=== PATIENT | male | born 1930 | race Caucasian/White ===

== ENCOUNTER 2017-03-31 12:00 | Emergency (ER) | payer MEDICARE, OTHER ==
[2017-03-31 12:44] VITALS: BP 150/80
--- NOTE | 2017-03-31 14:27 | UC ---
Abdominal Pain Male HPI - HPI Summary HPI Summary: ONSET OF FEELING OF CONSTIPATION AND FULLNESS TO ABDOMEN LAST NIGHT AROUND 6PM. STATES HE OVER ATE AT DINNER. TRIED TO THROW UP BUT COULDN'T. TRIED TO HAVE A BM BUT COULDN'T. NO FEVER OR NAUSEA. THIS MORNING TRIED AGAIN AND DID THROW UP A LOT. SX BETTER BUT NOT COMPLETELY RESOLVED. WHILE WAITING HERE TO BE SEEN HAD A BIG BM AND NOW SX ARE RESOLVED. - History of Current Complaint Chief Complaint: UCAbdominalPain Stated Complaint: VOMITING Time Seen by Provider: 03/31/17 13:48 Hx Obtained From: Patient, Family/Bias Cutter Helper - SON Onset/Duration: Sudden Onset, Lasting Hours, Resolved Timing: Constant Severity Initially: Moderate Severity Currently: None Pain Intensity: 0 Pain Scale Used: 0-10 Numeric Location: Diffuse Radiates: No Character: Sharp Aggravating Factor(s):: Nothing Associated Signs And Symptoms: Positive: Constipation - Allergies/Home Medications Allergies/Adverse Reactions: Allergies Allergy/AdvReac Type Severity Reaction Status Date / Time Ciprofloxacin [From Cipro] Allergy rash and Verified 03/31/17 12:44 hives Home Medications: Home Medications Losartan Potassium & Hydrochlo [Hyzaar 100/12.5 mg] 1 tab PO DAILY 03/31/17 [ History Confirmed 03/31/17] NIFEdipine ER TAB* [Procardia Xl TAB*] 60 mg PO DAILY 03/31/17 [History Confirmed 03/31/17] Naproxen TAB* [Naprosyn 250 mg TAB*] 250 mg PO TID PRN 03/31/17 [History Confirmed 03/31/17] PMH/Surg Hx/FS Hx/Imm Hx Endocrine History Of: Denies: Diabetes, Thyroid Disease Cardiovascular History Of: Reports: Hypertension Denies: Cardiac Disorders Respiratory History Of: Denies: COPD, Asthma GI/ History Of: Denies: Ulcer Cancer History Of: Reports: Prostate Cancer - Surgical History Surgical History: Yes Surgery Procedure, Year, and Place: Kidney stone removal, lithotripsy x3. - Family History Known Family History: Positive: Hypertension - Social History Alcohol Use: Occasionally Substance Use Type: None Smoking Status (MU): Never Smoked Tobacco - Immunization History Most Recent Influenza Vaccination: 2013 Review of Systems Constitutional: Negative Respiratory: Negative Cardiovascular: Negative Gastrointestinal: Abdominal Pain Genitourinary: Negative All Other Systems Reviewed And Are Negative: Yes Physical Exam Triage Information Reviewed: Yes Appearance: Well-Appearing, No Pain Distress, Well-Nourished Vital Signs: Initial Vital Signs Temp 99.2 F 03/31/17 12:34 Pulse 103 03/31/17 12:34 Resp 18 03/31/17 12:34 BP 150/80 03/31/17 12:34 Pulse Ox 98 03/31/17 12:34 Vital Signs Reviewed: Yes Eyes: Positive: Conjunctiva Clear ENT: Positive: Hearing grossly normal Neck: Positive: Supple Respiratory Exam: Normal Cardiovascular: Positive: Other: - IRREGULAR Abdomen Description: Positive: Nontender, Soft. Negative: Distended, Guarding Musculoskeletal: Positive: No Edema Neurological: Positive: Alert Psychological: Positive: Normal Response To Family, Age Appropriate Behavior Skin: Negative: rashes Abd Pain Male Course/Dx - Course Course Of Treatment: SYMPTOMS RESOLVED AFTER BM HERE WHILE WAITING TO BE SEEN. - Differential Dx/Clinical Impression Provider Diagnoses: CONSTIPATION Discharge - Discharge Plan Condition: Stable Disposition: HOME Patient Education Materials: Constipation (ED) Referrals: Gaudencio Ureña MD [Primary Care Provider] - If Needed Additional Instructions: YOUR SYMPTOMS SEEM TO HAVE IMPROVED AFTER YOUR BOWEL MOVEMENT HERE. NO ACUTE INTERVENTION INDICATED AT THIS TIME. FOLLOW-UP WITH YOUR PCP IF SYMPTOMS RECUR. I WOULD SUGGEST RESTARTING YOUR DAILY COLACE.
== END 2017-03-31 14:51 | disposition home or self-care (01) ==
LOC: UCEAST 12:00
DX: K59.00 Constipation, unspecified (principal); I10 Essential (primary) hypertension; Z87.442 Personal history of urinary calculi; Z85.46 Personal history of malignant neoplasm of prostate; Z88.1 Allergy status to other antibiotic agents
CPT/HCPCS: 99201; G0463

== ENCOUNTER 2018-02-25 05:44 | Inpatient (IN) | payer MEDICARE, OTHER ==
--- NOTE | 2018-02-15 14:39 | HP ---
HISTORY AND PHYSICAL: DATE OF ADMISSION/SURGERY: 02/25/18 SURGEON: Sandra Turner MD * (DICTATED BY KHRIS GARNER) PROCEDURE: Right total knee arthroplasty. CHIEF COMPLAINT: Right knee pain. HISTORY OF PRESENT ILLNESS: Mr. 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 He has failed conservative management and elected to proceed with a right total knee arthroplasty, which is scheduled for 02/25/[address] Turner. PAST MEDICAL HISTORY: 1. Hypertension. 2. History of prostate cancer and urethral stricture. PAST SURGICAL HISTORY: Left total knee arthroplasty and lithotripsy. CURRENT MEDICATIONS: 1. Eucerin twice a day. 2. Tylenol as needed. 3. Colyte as needed. 4. Triamcinolone acetonide 0.1% as needed. 5. Losartan potassium/hydrochlorothiazide 100/25 mg daily. 6. Terazosin 2 mg q.h.s. 7. Nifedipine daily. ALLERGIES: To CIPRO. FAMILY HISTORY: Denies. SOCIAL HISTORY: This 87-year-old gentleman lives alone. He does not smoke or use drugs. Uses occasional alcohol. REVIEW OF SYSTEMS: A complete 14-point review of systems was reviewed with the patient, was all negative or noncontributory. PHYSICAL EXAMINATION GENERAL: He is well developed, well nourished, in no acute distress. VITAL SIGNS: He stands 5 feet 7 inches tall, weighs 149 pounds. His blood pressure is 142/64, heart rate is 58. HEENT: Normocephalic, atraumatic. NECK: Supple. No palpable lymph nodes. PULMONARY: Lungs are clear to auscultation bilaterally. CARDIO: Regular rate and rhythm. Strong S1, S2. ABDOMEN: Soft, nontender, nondistended. MUSCULOSKELETAL: Right lower extremity skin is intact. There is no open wounds or abrasions. He has some tenderness over the medial joint line. There is a significant varus deformity measuring approximately 15 degrees. Range of motion is 20 to 100 degrees. He has 2+ dorsalis pedis pulse, he has intact sensation. His lower extremity muscle group strengths are intact at 5/5. NEUROLOGIC: He is alert and oriented x3. Cranial nerves II through XII are intact. ASSESSMENT AND PLAN: Mr. 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 He has failed conservative management and elected to proceed with a right total knee arthroplasty which is scheduled for 02/25/[address] Turner discussed the risks and benefits of surgery at today's visit and all his questions were answered. He will follow up with Dr. Turner 2 weeks after the surgery. KHRIS GARNER [id number]/[facility] #: [id number] [id number]
[~2018-02-25 05:44] MED LIST: Buffered Lidocaine 0.9% SYRIN* 5 ML/SYR SYRINGE INTRADERM ONE; DiMENhydriNATE IV* 50 MG/ML VIAL IV PUSH PRN; Morphine INJ* 2 MG/ML 1 ML CARPUJECT IV PRN; Naloxone* 0.4 MG/ML 1 ML VIAL IV PRN; PROCHLORPERAZINE INJ 5 MG/ML 2 ML VIAL IV PRN; fentaNYL* 50 MCG/ML 2 ML VIAL (100 MCG VIAL) IV PRN
--- OUTSIDE RECORDS SUMMARY | 2018-02-25 05:54 | XMS REPORT ---
:1930 External Reference #:[id number] Author Organization [employer] Address [address] [address] Phone [phone] Care Team Providers Name Role Phone Nick Hudson MD Primary Care Physician Unavailable Payers Type Date Identification Numbers Payment Provider Subscriber Medicare Primary Policy Number: [id number] Medicare Jovanni Velazco PayID: [id number] [address] [place] [address] Medigap Part B Policy Number: [id number] A[employer] Insurance Jovanni Velazco Group Number: [id number] [address] PayID: [id number] [place] [address] Problems Date Description Provider Status Onset: 08/12/2017 Essential hypertension Opal Gee M.D.,FACP Onset: 01/27/2018 Localized, primary osteoarthritis Sandra Turner M.D. Active Family History Date Family Member(s) Problem(s) Comments General Heart Disease Father Alcoholism Drinker, had liver disease. age 72 Mother Obesity Mother Heart Disease CHF, age57 Social History Type Date Description Comments Lives With Alone Occupation Retired [employer] ETOH Use consumes 2 beers per week Smoking 08/05/2017 Patient is a former smoker used to smoke cigars, quit 2014 Daily Caffeine Consumes on average 1 cup of regular coffee per day Exercise Type/Frequency Exercises regularly water/pool swimming 5x/week Allergies, Adverse Reactions, Alerts Date Description Reaction Status Severity Comments 11/08/2014 Cipro active Medications Medication Date Status Form Strength Qnty SIG Indications Ordering Provider Vishal 08/05/ Active Cream 240gm apply twice a Annika 2017 day SRINATH Valentino Tylenol 08/05/ Active Capsules 325mg 120ca 2 tablets Annika 2016 ps every 4 hours Valentino, as needed for 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 ATTENDANT 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 Col Rite 08/05/ Active Annika 2017 Valentino, SERVICE ATTEND[employer] Triamcinolone 08/05/ Active Cream 0.1% 60gm apply small Annika Acetonide 2017 amt qd prn Valentino, SERVICE ATTENDANT [employer] Losartan / Active Tablets 100-25mg 30tab 1 by mouth Annika Potassium/[place] 0000 s every day Valentino, chlorothiazide SERVICE ATTENDANT [employer]FETER[employer] Terazosin HCL / Active Capsules 2mg 90cap Take 1 Annika 0000 s capsule Valentino, orally qhs SERVICE ATTENDANT [employer] Nefedipine / Active once daily Unknown 0000 Triamcinolone 08/05/ Hx Cream 0.1% 15uni apply thin Annika Acetonide 2017 - ts film twice Valentino, 08/05/ daily SERVICE ATTENDANT CAFETERIA 2017 Percocet 12/22/ Hx Tablets 5-325mg 90tab 1-2 tabs by Sandra 2015 - s mouth q4-6 as Johnny, 03/01/ needed pain M.D. 2014 Coumadin 12/22/ Hx Tablets 2mg 90tab 1-3 tab by Sandra 2015 - s mouth as Johnny, 02/28/ directed at M.D. 2014 5pm daily Colace 12/22/ Hx Capsules 100mg 60cap 1 tab by Sandra 2015 - s mouth twice a Johnny, 05/29/ day as needed M.D. 2013 constipation Naproxen / Hx Tablets 250mg 1 tab by Unknown 0000 - mouth twice 08/05/ daily 2016 Nifedipine ER / Hx Tablets 60mg 1 by mouth Unknown 0000 - ER 24HR every day 2016 Fexofenadine / Hx Tablets 180mg 1 by mouth Unknown HCL 0000 - every day 2017 Medications Administered in Office Medication Date Status Form Strength Qnty SIG Indications Ordering Provider Depomedrol Administered Injection Sandra 80MG 015 Domo Turner Vital Signs Date Vital Result Comment 01/27/2018 Height 66.25 inches 5'6.25" Weight 149.00 lb Heart Rate 80 /min BP Systolic 136 mmHg BP Diastolic 70 mmHg BMI (Body Mass Index) 23.9 kg/m2 08/05/2017 Height 68 inches 5'8" Weight 149.25 lb Heart Rate 77 /min BP Systolic 128 mmHg BP Diastolic 60 mmHg Body Temperature 96.6 F O2 % BldC Oximetry 98 % BMI (Body Mass Index) 22.7 kg/m2 04/30/2015 Height 68 inches 5'8" Weight 155.00 lb Heart Rate 67 /min BP Systolic 142 mmHg BP Diastolic 78 mmHg Pain Level 0 BMI (Body Mass Index) 23.6 kg/m2 03/01/2015 Height 68 inches 5'8" Weight 155.00 lb Pain Level 1 BMI (Body Mass Index) 23.6 kg/m2 01/29/2015 Height 68 inches 5'8" Weight 155.00 lb Pain Level 1 BMI (Body Mass Index) 23.6 kg/m2 01/15/2015 Height 68 inches 5'8" Weight 155.00 lb Body Temperature 973.0 F Pain Level 2 BMI (Body Mass Index) 23.6 kg/m2 12/22/2014 Height 68 inches 5'8" Weight 155.00 lb Heart Rate 73 /min BP Systolic 160 mmHg BP Diastolic 80 mmHg BMI (Body Mass Index) 23.6 kg/m2 11/13/2014 Height 68 inches 5'8" Weight 152.00 lb BP Systolic 110 mmHg BP Diastolic 76 mmHg BMI (Body Mass Index) 23.1 kg/m2 Results Test Date Test Result H/L Range Note Basic Metabolic Panel 01/18/2018 Sodium 140 mmol/L 133-145 Potassium 4.5 mmol/L 3.5-5.0 Chloride 111 mmol/L 101-111 Co2 Carbon Dioxide 25 mmol/L 22-32 Anion Gap 4 mmol/L 2-11 Glucose 95 mg/dL 70-100 Blood Urea Nitrogen 36 mg/dL High 6-24 Creatinine 1.64 mg/dL High 0.67-1.17 BUN/Creatinine Ratio 22.0 High 8-20 Calcium 9.3 mg/dL 8.6-10.3 Egfr Non- 39.8 >60 Egfr 51.2 >60 1 Basic Metabolic Panel 01/08/2015 Sodium 138 mmol/L 133-145 Potassium 4.6 mmol/L 3.5-5.0 Chloride 104 mmol/L 101-111 Co2 Carbon Dioxide 26 mmol/L 22-32 Anion Gap 8 mmol/L 2-11 Glucose 105 mg/dL High 70-100 Blood Urea Nitrogen 45 mg/dL High 6-24 Creatinine 2.17 mg/dL High 0.67-1.17 BUN/Creatinine Ratio 20.7 High 8-20 Calcium 8.5 mg/dL Low 8.6-10.3 Egfr Non- 29.0 >60 Egfr 37.4 >60 2 Inr/Protime 01/08/2015 Inr 2.29 High 0.78-1.07 3 Urinalysis Profile 12/22/2014 Urine Color Yellow 4 Urine Appearance Clear 4 Urine Specific [place] 1.017 1.010-1.030 4 Urine pH 5.0 5-9 4 Urine Urobilinogen Negative Negative 4 Urine Ketones Negative Negative 4 Urine Protein 1+(30 mg/dL) Negative 4 Urine Leukocytes Negative Negative 4 Urine Blood Negative Negative 4 * * Negative 4, 5 Urine Nitrite Negative Negative 4 Urine Bilirubin Negative Negative 4 Urine Glucose Negative Negative 4 Urine White Blood Cell Trace(0-5/hpf) Absent 4 Urine Red Blood Cell Trace(0-2/hpf) Absent 4 Urine Bacteria Absent Absent 4 CBC No Diff 12/22/2014 White Blood Count 6.3 10^3/uL 4.8-10.8 4 Red Blood Count 4.57 10^6/uL 4.0-5.4 4 Hemoglobin 14.6 g/dL 14.0-18.0 4 Hematocrit 44 % 42-52 4 Mean Corpuscular Volume 97 fL High 80-94 4 Mean Corpuscular Hemoglobin 32 pg High 27-31 4 Mean Corpuscular HGB Conc 33 g/dL 31-36 4 Red Cell Distribution Width 14 % 10.5-15 4 Platelet Count 171 10^3/uL 150-450 4 Mean Platelet Volume 10 um3 7.4-10.4 4 Basic Metabolic Panel 12/22/2014 Sodium 141 mmol/L 133-145 4 Potassium 4.2 mmol/L 3.5-5.0 4 Chloride 110 mmol/L 101-111 4 Co2 Carbon Dioxide 26 mmol/L 22-32 4 Anion Gap 5 mmol/L 2-11 4 Glucose 84 mg/dL 70-100 4 Blood Urea Nitrogen 37 mg/dL High 6-24 4 Creatinine 1.49 mg/dL High 0.67-1.17 4 BUN/Creatinine Ratio 24.8 High 8-20 4 Calcium 9.3 mg/dL 8.6-10.3 4 Egfr Non- 44.8 >60 4 Egfr 57.6 >60 4, 6 Type & Screen 12/22/2014 Patient Blood Type A Positive 4 Antibody Screen NEGATIVE 4 CBC Auto Diff 12/12/2014 White Blood Count 4.8 10^3/uL 4.8-10.8 Red Blood Count 4.35 10^6/uL 4.0-5.4 Hemoglobin 14.0 g/dL 14.0-18.0 Hematocrit 43 % 42-52 Mean Corpuscular Volume 98 fL High 80-94 Mean Corpuscular Hemoglobin 32 pg High 27-31 Mean Corpuscular HGB Conc 33 g/dL 31-36 Red Cell Distribution Width 15 % 10.5-15 Platelet Count 156 10^3/uL 150-450 Mean Platelet Volume 10 um3 7.4-10.4 Abs Neutrophils 2.9 10^3/uL 1.5-7.7 Abs Lymphocytes 1.2 10^3/uL 1.0-4.8 Abs Monocytes 0.4 10^3/uL 0-0.8 Abs Eosinophils 0.1 10^3/uL 0-0.6 Abs Basophils 0 10^3/uL 0-0.2 Abs Nucleated RBC 0 10^3/uL Granulocyte % 61.9 % 38-83 Lymphocyte % 26.2 % 25-47 Monocyte % 8.6 % 1-9 Eosinophil % 2.4 % 0-6 Basophil % 0.9 % 0-2 Nucleated Red Blood Cells % 0.1 Comp Metabolic Panel 12/12/2014 Sodium 141 mmol/L 133-145 Potassium 4.1 mmol/L 3.5-5.0 Chloride 108 mmol/L 101-111 Co2 Carbon Dioxide 29 mmol/L 22-32 Anion Gap 4 mmol/L 2-11 Glucose 93 mg/dL 70-100 Blood Urea Nitrogen 30 mg/dL High 6-24 Creatinine 1.57 mg/dL High 0.67-1.17 BUN/Creatinine Ratio 19.1 8-20 Calcium 8.9 mg/dL 8.6-10.3 Total Protein 6.3 g/dL Low 6.4-8.9 Albumin 4.0 g/dL 3.2-5.2 Globulin 2.3 g/dL 2-4 Albumin/Globulin Ratio 1.7 1-3 Total Bilirubin 0.60 mg/dL 0.2-1.0 Alkaline Phosphatase 48 U/L 34-104 Alt 11 U/L 7-52 Ast 18 U/L 13-39 Egfr Non- 42.2 >60 Egfr 54.3 >60 7 1 Because ethnic data is not always readily available, this report includes an eGFR for both -Americans and non- Americans. The National Kidney Disease Education Program (NKDEP) does not endorse the use of the MDRD equation for patients that are not between the ages of 18 and 70, are , have extremes of body size, muscle mass, or nutritional status, or are non- or non-. According to the National Kidney Foundation, irrespective of diagnosis, the stage of the disease is based on the level of kidney function: Stage Description GFR(mL/min/1.73 m(2)) 1 Kidney damage with normal or decreased GFR 90 2 Kidney damage with mild decrease in GFR 60-89 3 Moderate decrease in GFR 30-59 4 Severe decrease in GFR 15-29 5 Kidney failure <15 (or dialysis) 2 Because ethnic data is not always readily available, this report includes an eGFR for both -Americans and non- Americans. The National Kidney Disease Education Program (NKDEP) does not endorse the use of the MDRD equation for patients that are not between the ages of 18 and 70, are , have extremes of body size, muscle mass, or nutritional status, or are non- or non-. According to the National Kidney Foundation, irrespective of diagnosis, the stage of the disease is based on the level of kidney function: Stage Description GFR(mL/min/1.73 m(2)) 1 Kidney damage with normal or decreased GFR 90 2 Kidney damage with mild decrease in GFR 60-89 3 Moderate decrease in GFR 30-59 4 Severe decrease in GFR 15-29 5 Kidney failure <15 (or dialysis) 3 Please note: Effective December 27, 2014, the reference value for this test has changed due to the validation and activation of a new reagent lot number. 4 AA SURGERY 01/02/15 5 *Ascorbic acid is present which may interfere with detection of blood. 6 Because ethnic data is not always readily available, this report includes an eGFR for both -Americans and non- Americans. The National Kidney Disease Education Program (NKDEP) does not endorse the use of the MDRD equation for patients that are not between the ages of 18 and 70, are , have extremes of body size, muscle mass, or nutritional status, or are non- or non-. According to the National Kidney Foundation, irrespective of diagnosis, the stage of the disease is based on the level of kidney function: Stage Description GFR(mL/min/1.73 m(2)) 1 Kidney damage with normal or decreased GFR 90 2 Kidney damage with mild decrease in GFR 60-89 3 Moderate decrease in GFR 30-59 4 Severe decrease in GFR 15-29 5 Kidney failure <15 (or dialysis) 7 Because ethnic data is not always readily available, this report includes an eGFR for both -Americans and non- Americans. The National Kidney Disease Education Program (NKDEP) does not endorse the use of the MDRD equation for patients that are not between the ages of 18 and 70, are , have extremes of body size, muscle mass, or nutritional status, or are non- or non-. According to the National Kidney Foundation, irrespective of diagnosis, the stage of the disease is based on the level of kidney function: Stage Description GFR(mL/min/1.73 m(2)) 1 Kidney damage with normal or decreased GFR 90 2 Kidney damage with mild decrease in GFR 60-89 3 Moderate decrease in GFR 30-59 4 Severe decrease in GFR 15-29 5 Kidney failure <15 (or dialysis) Procedures Date CPT Code Description Status 04/30/2015 29942 Inject/Drain Joint/Bursa Major Completed 01/02/2015 51929 TKR Total Knee Replacement Completed 01/02/2015 07322 TKR Total Knee Replacement Completed 11/13/2014 07196 Xray Knee 3 Views Completed 08/30/2012 Colonoscopy Completed 12/28/2006 54667 EKG, Interpretation Only Completed 05/14/2005 Colonoscopy Completed Encounters Type Date Location Provider CPT E/M Dx Office Visit 08/05/2017 11:30a [facility] [place] [address] [address] L20.84 Office Visit 01/05/2015 10:49a [facility], Maye Negron, N.P. [address] 584.9 Hospitalists V43.65 401.9 Office Visit 01/04/2015 10:48a [facility], [place] [address] 584.9 Hospitalists V43.65 401.9 Office Visit 11/13/2014 11:00a [facility] Turner M.D. 73156 715.16 [facility] Plan of Care Future Appointment(s):03/08/2018 1:00 pm - Sandra Turner M.D. at [facility]02/15/2018 11:30 am - Sandra Turner M.D. at [facility]01/28/2018 2:00 pm - Annika Valentino NP at [facility] - [address]/17/2018 11:00 am - Annika Valentino NP at [facility] - [address]/27/2018 - Sandra Turner M.D.M25.561 Pain in right kneeNew Xrays:Knee 3 Views RTFollow up:Follow up: 7-10 days before [id number] Effusion, right kneeM17.11 Unilateral primary osteoarthritis, right kneeM21.161 Varus deformity, not elsewhere classified, right knee
--- OUTSIDE RECORDS SUMMARY | 2018-02-25 05:54 | XMS REPORT ---
:1930 External Reference #:[id number] Author Organization [employer] Address [address] [address] Phone [phone] Care Team Providers Name Role Phone Nick Hudson MD Primary Care Physician Unavailable Payers Type Date Identification Numbers Payment Provider Subscriber Medicare Primary Policy Number: [id number] Medicare Jovanni Velazco PayID: [id number] [address] [place] [address] Medigap Part B Policy Number: [id number] [employer] Insurance Jovanni Velazco Group Number: [id number] [address] PayID: [id number] [place] [address] Problems Date Description Provider Status Onset: 08/12/2017 Essential hypertension Nick Hudson, Active Harley.Umm,FACP Onset: 01/27/2018 Localized, primary osteoarthritis Sandra Turner M.D. Active Onset: 02/04/2018 [place]itz type I incomplete Nick Hudson, Active atrioventricular block M.Umm,FACP Family History Date Family Member(s) Problem(s) Comments General Heart Disease Father Alcoholism Drinker, had liver disease. age 72 Mother Obesity Mother Heart Disease CHF, age57 Social History Type Date Description Comments Lives With Alone Occupation Retired [employer] ETOH Use consumes 2 beers per week Smoking 02/04/2018 Patient is a former smoker used to smoke cigars, quit 2000 Daily Caffeine Consumes on average 1 cup of regular coffee per day Exercise Type/Frequency Exercises regularly water/pool swimming 5x/week Allergies, Adverse Reactions, Alerts Date Description Reaction Status Severity Comments 11/08/2014 Cipro active Medications Medication Date Status Form Strength Qnty SIG Indications Ordering Provider Eucerin 08/05/ Active Cream 240gm apply twice a Annika 2016 day Valentino, [employer] Tylenol 08/05/ Active Capsules 325mg 120ca 2 tablets Annika 2016 ps every 4 hours Valentino, 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 Col Rite 08/05/ Active Annika 2017 Valentino, [employer]BLER Triamcinolone 08/05/ Active Cream 0.1% 60gm apply small Annika Acetonide 2017 amt qd prn Valentino, [employer]SEMBLER Losartan / Active Tablets 100-25mg 30tab 1 by mouth Annika Potassium/[place] 0000 s every day Valentino, chlorothiazide [employer]OUNT[employer] ROLLER [employer]SEMBLER Terazosin HCL / Active Capsules 2mg 90cap Take 1 Annika 0000 s capsule Valentino, orally qhs [employer]OUNTAIN ROLLER ASSEMBLER Nefedipine / Active once daily Unknown 0000 Triamcinolone 08/05/ Hx Cream 0.1% 15uni apply thin Annika Acetonide 2017 - ts film twice Valentino, 08/05/ daily [employer]OUNTAIN [employer]ER [employer]SEMBLER 2017 Percocet 12/22/ Hx Tablets 5-325mg 90tab [...] Turner Vital Signs Date Vital Result Comment 02/04/2018 Weight 148.00 lb Heart Rate 75 /min BP Systolic 123 mmHg BP Diastolic 65 mmHg Body Temperature 97.3 F O2 % BldC Oximetry 97 % 01/27/2018 Height 66.25 inches 5'6.25" Weight 149.00 [...] 4 Urine Appearance Clear 4 Urine Specific [place] 1.017 1.010-1.030 4 Urine pH 5.0 5-9 [...] Procedures Date CPT Code Description Status 04/30/2015 34989 Inject/Drain Joint/Bursa Major Completed 01/02/2015 89322 TKR Total Knee Replacement Completed 01/02/2015 86656 TKR Total Knee Replacement Completed 11/13/2014 96310 Xray Knee 3 Views Completed 08/30/2012 Colonoscopy Completed 12/28/2006 52490 EKG, Interpretation Only Completed 05/14/2005 Colonoscopy Completed Encounters Type Date Location Provider CPT E/M Dx Office Visit 08/05/2017 11:30a [facility] [place] [address] [address] L20.84 Office Visit 01/05/2015 10:49a [facility]pc Maye Negron, N.P. 19[address] 584.9 Hospitalists V43.65 401.9 Office Visit 01/04/2015 10:48a [facility], [place] [address] 584.9 Hospitalists V43.65 401.9 Office Visit 11/13/2014 11:00a [facility] M.D. 11118 715.16 [facility] Plan of Care Future Appointment(s):08/19/2018 1:40 pm - Annika Valentino NP at [facility] - [address]/25/2018 9:30 am - KHRIS Luu at [facility]02/25/2018 9:30 am - Galo Mayes PA-C at [facility]02/25/2018 9:30 am - KHRIS Peters at [facility]02/25/2018 9:30 am - Sandra Turner M.D. at [facility]03/08/2018 1:00 pm - Sandra Turner M.D. at [facility]02/15/2018 11:30 am - Sandra Turner M.D. at [facility]02/04/2018 - Annika Valentino NPZ01.818 Encounter for other preprocedural examinationNew Orders:EKGComments:Drink plenty of water and liquids to keep well hydratedI am ordering some routine preoperative lab work. The office will contact you with your results. You may take all of your usual medications the morning of your surgery, unless your surgeon tells you otherwise.M25.561 Pain in right kneeM17.11 Unilateral primary osteoarthritis, right knee
[2018-02-25] MEDS ORDERED: ceFAZolin 2 GM PREMIX (*) 2 GM/50 ML BAG IVPB ONE (05:56)
[2018-02-25] MEDS ORDERED: Famotidine IV* 10 MG/ML 2 ML (20 mg) IV ONE (06:00)
[2018-02-25] MEDS ORDERED: Dexamethasone IV* 4 MG/ML 1 ML (4 MG) IV SLOW PU ONE (06:00)
[2018-02-25] MEDS ORDERED: Gabapentin CAP(*) 100 MG ONE (06:24)
[2018-02-25] MEDS ORDERED: Dexamethasone IV* 4 MG/ML 1 ML (4 MG) ONE (06:24)
[2018-02-25] MEDS ORDERED: Famotidine IV* 10 MG/ML 2 ML (20 mg) ONE (06:24)
[2018-02-25] MEDS ORDERED: Gabapentin CAP(*) 100 MG PO ONE (06:30)
[2018-02-25] MEDS ORDERED: fentaNYL* 50 MCG/ML 2 ML VIAL (100 MCG VIAL) ONE (07:09)
[2018-02-25] MEDS ORDERED: Midazolam* 1 MG/ML 5 ML VIAL (5 MG) ONE (07:09)
[2018-02-25] MEDS ORDERED: Magnesium Hydroxide LIQ* 30 ML UDC PO PRN (08:54)
[2018-02-25] MEDS ORDERED: Ondansetron TAB* 4 MG PO PRN (08:54)
[2018-02-25] MEDS ORDERED: Morphine INJ* 2 MG/ML 1 ML CARPUJECT IV PRN (08:54)
[2018-02-25] MEDS ORDERED: Cyclobenzaprine TAB* 10 MG PO PRN (08:54)
[2018-02-25] MEDS ORDERED: Ondansetron INJ* 2 MG/ML VIAL IV PRN (08:54)
[2018-02-25] MEDS ORDERED: diPHENhydraMINE IV* 50 MG/ML 1 ml VIAL (BENADRYL) IV PRN (08:54)
[2018-02-25] MEDS ORDERED: Polyethylene Glycol 3350* 17 GM PACKET PO PRN (08:54)
[2018-02-25] MEDS ORDERED: Acetaminophen TAB* 325 MG PO PRN (08:54)
[2018-02-25] MEDS ORDERED: oxyCODONE TAB* 5 MG TAB PO PRN (08:54)
[2018-02-25] MEDS ORDERED: Bisacodyl SUPP* 10 MG SUPP PR PRN (08:54)
[2018-02-25] MEDS ORDERED: NIFEdipine ER TAB* 60 MG PO SCH (09:00)
[2018-02-25] MEDS ORDERED: Losartan TAB* 25 MG PO SCH (09:00)
[2018-02-25] MEDS ORDERED: Hydrochlorothiazide TAB* 25 MG PO SCH (09:00)
[2018-02-25] MEDS ORDERED: EPHEDrine (Pressors)* 50 MG/ML VIAL ONE (10:02)
[2018-02-25] MEDS ORDERED: Glycopyrrolate IV* 0.2 MG/ML 1 ML VIAL ONE (10:02)
[2018-02-25] MEDS ORDERED: Ondansetron INJ* 2 MG/ML VIAL ONE (10:03)
[2018-02-25] MEDS ORDERED: Bupivacaine 0.25% SDV* 30 ML ONE (10:03)
[2018-02-25] MEDS ORDERED: Lidocaine 2% PF * 5 ML VIAL ONE (10:03)
[2018-02-25] MEDS ORDERED: Phenylephrine INJ* 10 MG/ML 1 ML VIAL (10 MG) ONE (10:03)
[2018-02-25] MEDS ORDERED: Bupivacaine 0.5% SDV PF* 30ML VIAL ONE (10:03)
[2018-02-25] MEDS ORDERED: Propofol* 500 MG/50 ML BTL ONE (10:03)
--- NOTE | 2018-02-25 11:32 | RAD ---
INDICATION: Right knee arthroplasty COMPARISON: January 19, 2018 TECHNIQUE: 2 views were obtained. FINDINGS: There is right knee arthroplasty. Both femoral and tibial components appear well seated. There is a cooling jacket in place. IMPRESSION: POSTOPERATIVE RIGHT KNEE ARTHROPLASTY.
[2018-02-25] MEDS: Docusate CAP* 100 MG PO SCH ×2 (13:06→19:35)
[2018-02-25] MEDS: Magnesium Hydroxide LIQ* 30 ML UDC PO SCH ×2 (13:07→19:35)
[2018-02-25] MEDS: oxyCODONE/Acetamin 5/325 MG* TAB PO PRN ×3 (14:22→19:34)
[2018-02-25] MEDS ORDERED: Losartan TAB* 25 MG PO ONE (14:50)
[2018-02-25] MEDS: ceFAZolin 1 GM in Dextrose (*) 1 GM/50 ML BAG IVPB SCH (16:15)
--- NOTE | 2018-02-25 16:32 | CONS ---
CC: Annika Valentino NP * CONSULTATION/PROCEDURE NOTE: DATE OF CONSULT: 02/25/18 PROCEDURE: Urethral dilation and complex placement of Duggan catheter. HISTORY OF PRESENT ILLNESS: Mr. Velazco is an 87-year-old white male who is admitted today for total right knee joint replacement by Dr. Sandra Turner. Request was made for Duggan catheter placement. I have been following Mr. Velazco for many years because of history of prostate carcinoma that was treated successfully with radiation therapy. He has had no evidence of recurrent disease and his PSA has remained very low. The patient developed extensive urethral strictures, which had caused him recurrent episodes of urinary retention. He had required cystoscopy and internal urethrotomies and urethral dilations in the past. The procedures were very difficult due to extensive tight urethral strictures. For the last several years, he has been managed by self-dilation using a stiff 12- Kyrgyz straight catheter. He has been able to void adequately and has had no recurrent retention. There is no history of any recent urinary tract infection or gross hematuria. DESCRIPTION OF PROCEDURE: The patient is being seen in the holding area preoperatively for urethral catheter placement. The patient was prepped and draped for urethral catheterization. Attempt at placement of 14 silicone Duggan catheter was not successful because of resistance at the level of the bulbar urethra. Attempt at placement of a 12-Duggan catheter were also unsuccessful. The urethra was then dilated with a 12-Kyrgyz stiff coude tipped straight catheter. Following that, a 12-Kyrgyz Duggan catheter was successfully placed draining clear urine. PLAN: The plan is to keep the catheter in place until the patient is ambulatory and after he is discharged home. He will need to go back performing the self- dilations daily as before. [id number]/[facility] #: [id number] [facility]
[2018-02-25] MEDS ORDERED: Warfarin TAB(*) 6 MG PO ONE (17:00)
--- NOTE | 2018-02-25 18:34 | PN ---
Progress Note - Progress Note Date of Service: 02/25/18 Note: Patient seen at bedside after arriving from PACU. He is comfortable and denies pain. I have been asked by nursing to evaluate hemovac due to blood soaked dressing. Hemovac tubing was intact though drainage holes in tubing visible. Drain was pulled with tip intact and without complication, tolerated well by patient. Bloody dressings changed.
[2018-02-25] MEDS: Terazosin CAP* 1 MG PO SCH (19:36)
--- NOTE | 2018-02-25 20:57 | CONS ---
HOSPITAL MEDICINE CONSULTATION REPORT: DATE OF CONSULT: 02/25/18 ATTENDING PHYSICIAN: Dr. Sandra Turner. CONSULTING PHYSICIAN: Dr. Jerica Trinh (dictation provided by Maye Negron NP) . REASON FOR CONSULTATION: Medical comanagement. The patient admitted for right total knee arthroplasty. HISTORY OF PRESENT ILLNESS: Mr. Velazco is an 87-year-old male with a past medical history of hypertension with prostate cancer and urethral stricture as well, who presented to the hospital today for planned right total knee arthroplasty. Please see dictated H and P from Sandra Turner MD for complete details. In brief, the patient had had ongoing issue with difficulty ambulating secondary to right knee osteoarthritis and opted for total knee arthroplasty with Dr. Turner today. The patient states that other than this he has been in his normal state of health. He has high blood pressure and nifedipine and losartan/hctz for that. He has a history of prostate cancer with urethral strictures for which he self catheterizes at home. The patient required placement of catheter by Dr. Peterson today due to the strictures prior to surgery. PAST MEDICAL HISTORY: 1. Hypertension. 2. Prostate cancer with urethral stricture. 3. Chronic kidney disease stage 3. PAST SURGICAL HISTORY: 1. Left total knee arthroplasty. 2. Lithotripsy. MEDICATIONS: Outpatient are: 1. Eucerin twice a day. 2. Tylenol as needed. 3. Colyte as needed. 4. Triamcinolone cream as needed. 5. Losartan/hydrochlorothiazide 100/12.5 one tab p.o. q.a.m. 6. Terazosin 2 mg p.o. q.h.s. 7. Nifedipine 60 mg p.o. q.a.m. ALLERGIES: CIPROFLOXACIN. FAMILY HISTORY: Reviewed and noncontributory today. SOCIAL HISTORY: The patient lives alone. He does not have any history of alcohol, drug use or smoking. He drinks alcohol very occasionally. REVIEW OF SYSTEMS: A 14-point review of systems was completed with Mr. Velazco and all those not mentioned above were negative. PHYSICAL EXAMINATION: Vital Signs: Temperature 97.5, pulse rate 57, respiratory rate 18, O2 saturation 100% on room air, blood pressure 95/73. General: Mr. Velazco is sitting in the bed, eating lunch. He is in no acute distress. Neuro: He is alert, he is oriented x3. He moves all extremities equally. There is no facial asymmetry or focal weakness. Extraocular movements are intact. Heart: S1, S2. No murmur, rub, or gallop and regular. Lungs: Clear to auscultation bilaterally with no accessory muscle use and good aeration. The abdomen is soft, nontender with bowel sounds positive x4. Extremities: No cyanosis or edema. Skin: Intact. DIAGNOSTIC STUDIES/LAB DATA: WBC 4.5, hemoglobin 12.7, hematocrit 39, platelet count 152. Sodium 140, potassium 4.4, chloride 113, serum bicarbonate 21, BUN 37, creatinine 1.80, glucose 101. ASSESSMENT AND PLAN: Mr. Velazco is an 87-year-old male with a past medical history of hypertension and chronic kidney disease stage 3, who presents to hospital today for planned right total knee arthroplasty. Our plans are as follows: 1. Postop day #0, status post right total knee arthroplasty: Management will be per Orthopedic Services. The patient will have PT and OT. He will have hemoglobin monitored daily. He will have pain medication with bowel regimen. 2. Hypertension. The patient's blood pressure is running a little low after surgery at 95 systolically. Plan to hold losartan/hydrochlorothiazide and to continue nifedipine with hold parameters. We will reevaluate this tomorrow and resume when appriopriate. 3. Chronic kidney disease stage 3. Plan to hold nephrotoxins of losartan and hydrochlorothiazide while the patient's blood pressure is relatively low. Continue IV fluids. Recheck in the a.m. Monitor closely during the hospitalization. 4. History of prostate cancer with urethral stricture. Per report, there is difficulty with placing the Duggan prior to surgery, requiring Dr. Peterson's assistance. I have spoken with Dr. Peterson on the phone. He states that the patient should continue the Duggan until Thursday. If the patient is discharged over the weekend, he should go home with the Duggan and should be taught how to remove the Duggan on Thursday. When it is removed, he should resume home catheterization per routine and if he has any issue, he will be instructed to call Dr. Peterson's office directly. 5. DVT prophylaxis with Lovenox and Warfarin per Ortho. 6. Code status is full code. TIME SPENT: Approximately 60 minutes were spent on the consultation of this patient, more than half the time spent with the patient at the bedside reviewing the events leading up to this hospitalization, performing the physical examination, and reviewing my plan of care. MAYE NEGRON NP [id number]/[facility] #: [id number] M[facility]
[2018-02-26] MEDS: oxyCODONE/Acetamin 5/325 MG* TAB PO PRN ×3 (00:29→11:50)
[2018-02-26] MEDS: ceFAZolin 1 GM in Dextrose (*) 1 GM/50 ML BAG IVPB SCH ×2 (00:30→08:11)
[2018-02-26 06:26] LABS: Hematocrit 28 % (42-52); Hemoglobin 9.6 g/dl (14.0-18.0); Mean Platelet Volume 8.7 um3 (7.4-10.4); Platelet Count 126 10^3/ul (150-450)
[2018-02-26 06:32] LABS: INR 1.14 (0.77-1.02)
[2018-02-26 06:52] LABS: EGFR Non-African American 40.7 (>60)
[2018-02-26] MEDS: NIFEdipine ER TAB* 60 MG PO SCH (08:11)
[2018-02-26] MEDS: Magnesium Hydroxide LIQ* 30 ML UDC PO SCH ×2 (08:11→20:12)
[2018-02-26] MEDS: Docusate CAP* 100 MG PO SCH ×2 (08:12→20:12)
--- NOTE | 2018-02-26 08:47 | PN ---
Progress Note - Progress Note Date of Service: 02/26/18 SOAP: Subjective: 87 y/o male s/p R TKA by DR. Turner 02/25. Patient feeling well, pain well controlled, no complaints, questions. Spoke with Dr. Aviles this AM re: catheter VSS, afebrile overnight. Objective: General- Well appearing, NAD, AO, sitting in chair comfortably. MSK- RLE- DF/PF = b/l, PT 2+, negative homans sign no induration, dressing intact, drain removed. SITLT b/l. Vital Signs Temp 98.5 F 02/26/18 07:44 Pulse 72 02/26/18 07:44 Resp 20 02/26/18 08:12 BP 145/55 02/26/18 07:44 Pulse Ox 98 02/26/18 07:44 Intake & Output 02/25/18 02/26/18 02/26/18 18:59 06:59 18:59 Intake Total 2095 2360 55 Output Total 625 700 Balance 1470 1660 55 Intake: IV Fluids 1700 1000 LR 1700 1000 IVPB 60 55 ABX - CEFAZOLIN 60 55 Oral 395 1300 Output: Urine 0 Duggan 425 700 Estimated Blood Loss 200 Other: # Bowel Movements 0 0 Assessment: Stable 87 y/o male s/p R TKA by DR. Turner 02/25. Plan: - DVT prophylaxis- lovenox, coumadin 4mg tonight - Continue PT/ OT - Follow up with Dr. Turner within 10-14 days - H&H - Stable - post-op IV ABX - running - Duggan- Placed by DR. Aviles, NOT to be removed until Weds at home and immediate self-dilitations afterwards. Patient to continue daily self- dilitation. Creatinine stable 1.6 Acetaminophen (Tylenol Tab*) 650 mg PO Q4H PRN PRN Reason: PAIN OR TEMPERATURE Bisacodyl (Dulcolax Supp*) 10 mg LA DAILY PRN PRN Reason: constipation Cyclobenzaprine HCl (Flexeril Tab*) 10 mg PO TID PRN PRN Reason: SPASMS Diphenhydramine HCl (Benadryl Iv*) 12.5 mg IV Q6H PRN PRN Reason: PRURITIS Docusate Sodium (Colace Cap*) 100 mg PO BID [facility] Last Admin: 02/26/18 08:12 Dose: 100 mg Enoxaparin Sodium (Lovenox(*)) 30 mg SUBCUT Q24H [facility] Lactated Ringer's (Lactated Ringers 1000 Ml Bag*) 1,000 mls @ 100 mls/hr IV PER RATE [facility] Last Admin: 02/25/18 22:52 Dose: 100 mls/hr Lactulose (Lactulose*) 30 ml PO Q6H PRN PRN Reason: constipation Losartan Potassium (Cozaar Tab*) 100 mg PO DAILY [facility] Last Admin: 02/26/18 08:11 Dose: 100 mg Magnesium Hydroxide (Milk Of Magnesia Liq*) 30 ml PO BID [facility] Last Admin: 02/26/18 08:11 Dose: 30 ml Magnesium Hydroxide (Milk Of Magnesia Liq*) 30 ml PO Q6H PRN PRN Reason: constipation Morphine Sulfate (Morphine Inj (Syringe)*) 2 mg IV Q2H PRN PRN Reason: PAIN Nifedipine (Procardia Xl Tab*) 60 mg PO QAM [facility] Last Admin: 02/26/18 08:11 Dose: 60 mg Ondansetron HCl (Zofran Inj*) 4 mg IV Q6H PRN PRN Reason: nausea Ondansetron HCl (Zofran Tab*) 4 mg PO Q6H PRN PRN Reason: NAUSEA Oxycodone HCl (Roxycodone Tab*) 10 mg PO Q4H PRN PRN Reason: SEVERE PAIN Oxycodone/Acetaminophen (Percocet 5/325 Tab*) 2 tab PO Q4H PRN PRN Reason: PAIN Last Admin: 02/26/18 08:12 Dose: 2 tab Oxycodone/Acetaminophen (Percocet 5/325 Tab*) 1 tab PO Q4H PRN PRN Reason: PAIN Last Admin: 02/26/18 00:29 Dose: 1 tab Pharmacy Profile Note (Coumadin Daily Reminder*) 1 note FOLLOW UP 1700 [facility] Polyethylene Glycol/Electrolytes (Miralax*) 17 gm PO DAILY PRN PRN Reason: Constipation Terazosin HCl (Hytrin Cap*) 2 mg PO BEDTIME [facility] Last Admin: 02/25/18 19:36 Dose: 2 mg Warfarin Sodium (Coumadin Tab(*)) 4 mg PO ONCE@1700 ONE PRN Reason: Protocol Stop: 02/26/18 17:01
[2018-02-26] MEDS ORDERED: Losartan TAB* 25 MG PO SCH ×2 (09:00→14:59)
[2018-02-26] MEDS: Enoxaparin(*) 30 MG/0.3 ML SYR SUBCUT SCH (11:50)
--- NOTE | 2018-02-26 14:28 | OP ---
OPERATIVE NOTE: DATE OF OPERATION: 02/25/18 DATE OF : [birth year] SURGEON: Sandra Turner MD. ROLLING MILL OPERATOR HELPER: KHRIS Barrow. Mr. Mayes did help throughout the procedure with preparation of the leg, wound retraction, and manip ulation of the knee. ANESTHESIOLOGIST: Dr. Zuluaga. ANESTHESIA: Spinal. PRE-OP DIAGNOSIS: Severe endstage degenerative osteoarthritis of the right knee joint. POST-OP DIAGNOSIS: Severe endstage degenerative osteoarthritis of the right knee joint. OPERATIVE PROCEDURE: Right total knee arthroplasty. COMPLICATIONS: None. ESTIMATED BLOOD LOSS: 200 cc. TOURNIQUET TIME: 48 minutes. SPECIMEN: Bone and cartilage from the right knee joint, sent to Pathology. HARDWARE USED: [employer] cemented total knee arthroplasty hardware. Two packages of Simplex bone cement were used. For the femur, a size 5 right posterior stabilized Legion femoral component. For the tibia, a size 4 right tibial baseplate, Phylicia II. For the insert size 3-4 a 9-mm Phylicia II posterior stabilized articular insert with a 32 mm 3-peg all poly patella. BRIEF HISTORY/INDICATIONS: Mr. Velazco is an 87-year-old gentleman with years of increasingly severe r ight knee pain. The patient failed conservative treatment with antiinflammatories, pain medications, intraarticular injections, and physical therapy. Radiographs showed bone on bone arthritis. Due to continued pain and decreased quality of life, patient elected to undergo a right total knee arthropl asty. Informed consent was obtained from the patient. He understood the risks of surgery included, but were not limited to bleeding, infection, damage to nearby structures, continued pain, need for fu rther surgery, intraoperative fracture, nerve palsy, hardware failure or loosening, knee stiffness, l oss of motion, stroke, heart attack, blood clot, and . He wished to proceed. INTRAOPERATIVE FINDINGS: Intraoperatively, the patient was noted to have severe endstage arthritis t hat is tricompartmental, full-thickness loss of cartilage. DESCRIPTION OF PROCEDURE: Mr. Velazco was identified in the preanesthesia unit. His right lower extre mity was marked as the correct operative side. Informed consent was signed and placed in the chart. The patient was taken to the operating room and placed under spinal anesthesia. At this point, Dr. Cameron Peterson did place a Duggan catheter using a cystogram. You can see his opera tive note for Duggan catheter placement. The tourniquet was placed on the right thigh. The right low er extremity was prepped and draped in the usual sterile fashion. Preop time-out was made to correct ly identify the patient's side and site. Appropriate perioperative antibiotics were given within 1 h our of incision. Tourniquet was inflated until tourniquet time for this procedure was 48 minutes. The midline incision of 12-cm was made with a 10-blade, carried down to the extensor mechanism. A new 10-blade was used to make a standard medial parapatellar arthrotomy. Patella was subluxed laterally. Electrocautery w as used to subperiosteally elevate soft tissue off the superomedial tibia to the mid sagittal plane. The knee was flexed up. The anterior horn of the lateral meniscus and ACL were sharply released. A drill was used to enter the distal femur. Intramedullary distal femoral cutting guide was pinned on the distal femur. Oscillating saw was used to the make distal femoral cut. Next the external rotat ion guide was pinned on the distal femur and the distal femur was sized to a size 5. Size 5 multi- c utting jig was pinned on the distal femur. Oscillating saw was used to make the appropriate 4 chamfe r cuts. PCL was completely released. The tibia was subluxed anteriorly. Extramedullary proximal tibial cutt ing guide was pinned on the proximal tibia. Oscillating saw was used to make the proximal tibial cut perpendicular to the mechanical axis of the tibia. The bone was carefully removed. The knee was br ought out into full extension. A spacer block had a good fit with some tightness along the medial li gaments. Electrocautery was used to release some of these ligaments along the medial plateau. Media l and lateral ligamentous balancing was much improved. Flexion and extension gaps were well balanced. Knee was flexed up. Lamina network design architect was placed both medially and laterally. Any remaining meniscus was carefully removed using electrocautery. Curved osteotome was used to remove any posterior osteop hytes. Tibial tray and drop kendrick were placed to once again confirm a satisfactory tibial cut. This was confi rmed. A size 5 right femoral trial was then impacted onto the distal femur and had excellent fit. T he box for the posterior stabilized implant was prepared using a reamer and box cut osteotome. A siz e 4 tibial tray trial with a 9-mm insert trial was placed and the knee was taken through a range of m otion. The knee had full extension to 130 degrees of flexion with satisfactory patellofemoral trackin g. The patella was everted. 9 mm of patellar bone and cartilage were carefully removed using an osc illating saw. The patella was sized to a size 32. The 3 peg holes were drilled through the size 32g uide. The trial 32 patella was placed and the knee was taken through a range of motion. There was s atisfactory patellofemoral tracking. All trials were carefully removed. Tibia was subluxed anteriorly and sized to a size 4. The proxima l tibia was prepared using a size 4 keel punch. All bony cut surfaces were copiously irrigated with sterile saline and dried. The final implants were cemented into place starting with the tibia, follo wed by the femur and last the patella. An 9-mm insert trial was placed and the knee was brought out into full extension. Tourniquet was turned down at 48 minutes. The knee was copiously irrigated wit h sterile saline. Electrocautery was used to obtain meticulous hemostasis. Once the cement had fully cured, the insert trial was removed. Any excess cement was removed from ar ound the capsule and hardware. Final insert chosen was a 9 mm posterior stabilized articular insert size 3-4. This was locked into position on the tibial tray. The stability of the insert was checked and rechecked and noted to be stable. The extensor mechanism was closed over a medium Hemovac drain using interrupted #1 Vicryls. The rest of the incision was closed in a layered fashion using 0 and 2-0 Vicryls. Skin was closed using runn ing 3-0 nylon suture. Xeroform, 4x4s, and Webril were used to cover the incision. Nik wrap and cold pack were placed over this. The patient's anesthesia was reversed without difficulty. She was taken to the PACU in stable condit ion. Intended weightbearing will be weightbearing as tolerated. Intended DVT prophylaxis will be Co umadin with a Lovenox bridge. [id number]/[facility] #: [id number]
--- NOTE | 2018-02-26 14:56 | PN ---
Subjective Date of Service: 02/26/18 Interval History: Patient doing well all day. Paged by nursing staff at approximately 1415 because of an episode of presyncope after attempting to have a BM with systolic blood pressures in the 80s. Patient states he was nauseated and sweaty with this but denies CP, SOB, Vomiting. Pain well controlled in hip and not worse coinciding with presyncope. Fluids started and patient feels much better. Had food reflux without nausea or vomiting while being examined. Family History: Unchanged from Admission Social History: Unchanged from Admission Past Medical History: Unchanged from Admission Objective Active Medications: Acetaminophen (Tylenol Tab*) 650 mg PO Q4H PRN PRN Reason: PAIN OR TEMPERATURE Bisacodyl (Dulcolax Supp*) 10 mg ID DAILY PRN PRN Reason: constipation Cyclobenzaprine HCl (Flexeril Tab*) 10 mg PO TID PRN PRN Reason: SPASMS Diphenhydramine HCl (Benadryl Iv*) 12.5 mg IV Q6H PRN PRN Reason: PRURITIS Docusate Sodium (Colace Cap*) 100 mg PO BID [facility] Last Admin: 02/26/18 08:12 Dose: 100 mg Enoxaparin Sodium (Lovenox(*)) 30 mg SUBCUT Q24H [facility] Last Admin: 02/26/18 11:50 Dose: 30 mg Lactated Ringer's (Lactated Ringers 1000 Ml Bag*) 1,000 mls @ 100 mls/hr IV PER RATE [facility] Last Admin: 02/25/18 22:52 Dose: 100 mls/hr Lactulose (Lactulose*) 30 ml PO Q6H PRN PRN Reason: constipation Losartan Potassium (Cozaar Tab*) 100 mg PO DAILY [facility] Last Admin: 02/26/18 08:11 Dose: 100 mg Magnesium Hydroxide (Milk Of Magnesia Liq*) 30 ml PO BID [facility] Last Admin: 02/26/18 08:11 Dose: 30 ml Magnesium Hydroxide (Milk Of Magnesia Liq*) 30 ml PO Q6H PRN PRN Reason: constipation Morphine Sulfate (Morphine Inj (Syringe)*) 2 mg IV Q2H PRN PRN Reason: PAIN Nifedipine (Procardia Xl Tab*) 60 mg PO QAM [facility] Last Admin: 02/26/18 08:11 Dose: 60 mg Ondansetron HCl (Zofran Inj*) 4 mg IV Q6H PRN PRN Reason: nausea Ondansetron HCl (Zofran Tab*) 4 mg PO Q6H PRN PRN Reason: NAUSEA Oxycodone HCl (Roxycodone Tab*) 10 mg PO Q4H PRN PRN Reason: SEVERE PAIN Oxycodone/Acetaminophen (Percocet 5/325 Tab*) 2 tab PO Q4H PRN PRN Reason: PAIN Last Admin: 02/26/18 11:50 Dose: 2 tab Oxycodone/Acetaminophen (Percocet 5/325 Tab*) 1 tab PO Q4H PRN PRN Reason: PAIN Last Admin: 02/26/18 00:29 Dose: 1 tab Pharmacy Profile Note (Coumadin Daily Reminder*) 1 note FOLLOW UP 1700 [facility] Polyethylene Glycol/Electrolytes (Miralax*) 17 gm PO DAILY PRN PRN Reason: Constipation Terazosin HCl (Hytrin Cap*) 2 mg PO BEDTIME [facility] Last Admin: 02/25/18 19:36 Dose: 2 mg Warfarin Sodium (Coumadin Tab(*)) 4 mg PO ONCE@1700 ONE PRN Reason: Protocol Stop: 02/26/18 17:01 Vital Signs - 8 hr 02/26/18 02/26/18 02/26/18 07:44 08:12 11:50 Temperature 98.5 F Pulse Rate 72 Respiratory 18 20 18 Rate Blood Pressure 145/55 (mmHg) O2 Sat by Pulse 98 Oximetry 02/26/18 02/26/18 11:55 14:20 Temperature Pulse Rate Respiratory 16 18 Rate Blood Pressure (mmHg) O2 Sat by Pulse Oximetry Oxygen Devices in Use Now: None Appearance: Patient is an 87yo male who appears stated age and is sitting in the bed in [facility]. Eyes: No Scleral Icterus, PERRLA Ears/Nose/Mouth/Throat: NL Teeth, Lips, Gums, Clear Oropharnyx, Mucous Membranes Moist Neck: NL Appearance and Movements; NL JVP, Trachea Midline Respiratory: Symmetrical Chest Expansion and Respiratory Effort, Clear to Auscultation Cardiovascular: NL Sounds; No Murmurs; No JVD, RRR, No Edema Abdominal: NL Sounds; No Tenderness; No Distention, No Hepatosplenomegaly Lymphatic: No Cervical Adenopathy Extremities: No Edema, No Clubbing, Cyanosis, - - Knee covered with bulky dressing. Sensation and perfusion intact distally. Skin: No Rash or Ulcers, No Nodules or Sclerosis Neurological: Alert and Oriented x 3, NL Sensation, NL Muscle Strength and Tone , - - CN II-XII intact. Result Diagrams: 02/26/18 06:11 02/26/18 06:11 Assess/Plan/Problems-Billing Assessment: Patient is an 87yo male with a PMH for HTN, CKD and prostate cancer who is S/P RTKA on 02/25 and is doing well. - Patient Problems (1) Pre-syncope Current Visit: Yes Status: Acute Comment: Likely due to vagal response from attemting to have a BM. Will check orthostatics in AM. EKG pending. (2) HTN (hypertension) Current Visit: No Status: Chronic Code(s): I10 - ESSENTIAL (PRIMARY) HYPERTENSION SNOMED Code(s): 62413260 Comment: Hypertensive yesterday. Reintroduced Lisinopril and amlodipine. Hypotensive today. Giving fluids. Continue meds with hold parameters. (3) Prostate cancer Current Visit: No Status: Chronic Code(s): C61 - MALIGNANT NEOPLASM OF PROSTATE SNOMED Code(s): 759538332 Comment: Follow up outpatient with Urology. (4) Urethral stricture Current Visit: No Status: Chronic Code(s): N35.9 - URETHRAL STRICTURE, UNSPECIFIED SNOMED Code(s): 51400284 Comment: Catheter placed by Dr. Morales. Leave in place until Thursday then resume home catheterizations. Communicated to familt and they are in agreement. (5) DVT prophylaxis Current Visit: No Status: Acute Priority: Medium Onset Date: 01/02/15 Code(s): LMR2118 - SNOMED Code(s): 548437695 Comment: Lovenox to Warfarin as per Ortho. Status and Disposition: Disposition per ortho.
[2018-02-26] MEDS ORDERED: Morphine INJ* 2 MG/ML 1 ML CARPUJECT IV PRN (15:20)
[2018-02-26 16:01] LABS: Hematocrit 27 % (42-52); Hemoglobin 8.9 g/dl (14.0-18.0)
[2018-02-26] MEDS: Acetaminophen TAB* 325 MG PO SCH ×2 (16:11→21:09)
[2018-02-26] MEDS ORDERED: Warfarin TAB(*) 4 MG PO ONE (17:00)
[2018-02-26] MEDS: Terazosin CAP* 1 MG PO SCH (20:12)
[2018-02-27] MEDS: Acetaminophen TAB* 325 MG PO SCH ×2 (03:10→09:03)
[2018-02-27 05:27] LABS: Hematocrit 25 % (42-52); Hemoglobin 8.6 g/dl (14.0-18.0); Mean Platelet Volume 9.1 um3 (7.4-10.4); Platelet Count 114 10^3/ul (150-450)
[2018-02-27 05:29] LABS: INR 1.95 (0.77-1.02)
[2018-02-27] MEDS: NIFEdipine ER TAB* 60 MG PO SCH (07:30)
[2018-02-27] MEDS: Magnesium Hydroxide LIQ* 30 ML UDC PO SCH (07:30)
[2018-02-27] MEDS: Docusate CAP* 100 MG PO SCH (07:30)
[2018-02-27 07:41] LABS: EGFR Non-African American 37.7 (>60)
--- NOTE | 2018-02-27 08:04 | PN ---
Progress Note - Progress Note Date of Service: 02/27/18 SOAP: Subjective: patient resting comfortably with no complaints Objective: Vital Signs Temp Pulse Resp BP Pulse Ox 98.0 F 98 16 140/55 94 02/27/18 03:36 02/27/18 03:36 02/27/18 03:36 02/27/18 03:36 02/27/18 03:36 Laboratory Last Values Hgb 8.6 g/dl (14.0-18.0) L 02/27/18 04:52 Hct 25 % (42-52) L 02/27/18 04:52 Plt Count 114 10^3/ul (150-450) L 02/27/18 04:52 MPV 9.1 um3 (7.4-10.4) 02/27/18 04:52 INR (Anticoag Therapy) 1.95 (0.77-1.02) H 02/27/18 04:52 Sodium 138 mmol/L (139-145) L 02/27/18 04:52 Potassium 4.9 mmol/L (3.5-5.0) 02/27/18 04:52 Chloride 107 mmol/L (101-111) 02/27/18 04:52 Carbon Dioxide 28 mmol/L (22-32) 02/27/18 04:52 Anion Gap 3 mmol/L (2-11) 02/27/18 04:52 BUN 41 mg/dL (6-24) H 02/27/18 04:52 Creatinine 1.72 mg/dL (0.67-1.17) H 02/27/18 04:52 Est GFR ( Amer) 48.5 (>60) 02/27/18 04:52 Est GFR (Non-Af Amer) 37.7 (>60) 02/27/18 04:52 BUN/Creatinine Ratio 23.8 (8-20) H 02/27/18 04:52 Glucose 104 mg/dL (70-100) H 02/27/18 04:52 Calcium 8.1 mg/dL (8.6-10.3) L 02/27/18 04:52 incision: c/d; dressing changed PE:NVI Assessment: s/p right TKA Plan: 1) continue PT/OT- WBAT 2) Lovenox/coumadin for DVT prophylaxis 3) [place] to remain in until Thu per Stefan; patient will remove at home 4) Home today; RTC 2 weeks
[2018-02-27 09:42] VITALS: BP 131/54
[2018-02-27] MEDS: Enoxaparin(*) 30 MG/0.3 ML SYR SUBCUT SCH (12:53)
--- NOTE | 2018-02-28 00:26 | DS ---
AMENDED REPORT NOW INCLUDES COSIGNER DESIGNATION - ESIGNED BEFORE ADJUSTMENT DISCHARGE SUMMARY: DATE OF ADMISSION: 02/25/18 DATE OF DISCHARGE: 02/27/18 ATTENDING PROVIDER: Dr. Turner * (DICTATED BY KHRIS GARNER) PRINCIPAL DIAGNOSIS: End-stage osteoarthritis of the right knee. DISCHARGE DIAGNOSIS: End-stage osteoarthritis of the right knee. HISTORY OF PRESENT ILLNESS: Mr. Velazco is an 87-year-old gentleman with continued complaints of right knee pain. He has failed conservative management and elected to proceed with the right total knee arthroplasty. HOSPITAL COURSE: Mr. Velazco was admitted electively to the hospital on 02/25/18 and underwent a right total knee arthroplasty with Dr. Turner, which he tolerated well. Postoperatively, he was placed on Lovenox and Coumadin for DVT prophylaxis. On postoperative day 1, his H and H was 9.6 and 28; on postoperative day 2, 8.9 and 27; and on postoperative day 3, 8.6 and 25. His INR went from 1.14 to 1.95. His last dose of Coumadin was 4 mg. He remained afebrile and his vital signs were stable. At the time of discharge on 02/27/18 , he was afebrile and his vital signs are stable. His wound was clean and dry and he was discharged home in stable condition. DISCHARGE MEDICATIONS: 1. Colace 100 mg 2 to 3 times daily as needed for constipation. 2. Coumadin 2 mg. 3. Percocet 5/325 one to two tabs every 4 to 6 hours. 4. Losartan potassium 100 mg daily. 5. Procardia 60 mg daily. 6. Terazosin 2 mg q.h.s. PHYSICAL EXAMINATION UPON DISCHARGE: He was afebrile. His vital signs were stable. His wound was clean, dry, and healing well. He was able to straight leg raise. He is able to dorsiflex and plantarflex. He had 2+ dorsalis pedis pulses and intact sensation. DISCHARGE INSTRUCTIONS: He was discharged home in stable care. His dressing was changed prior to discharge. He was asked to keep the new dressing intact until Thursday. At that time, he can shower, let soap and water run over the incision. He can leave the area open to air or rewrap with an Nik wrap. No pools, hot tubs, or showers. He was given prescription for Coumadin and asked to take 2 mg Thursday night, 2 mg Thursday night. VNS will check his INR on Thursday. He was also given Percocet 5/325 to take every 4 to 6 hours for pain. He was given Colace for constipation. He was asked to follow up with Dr. Turner' s office in 2 weeks. KHRIS GARNER [id number]/[facility] #: [id number] MATT
== END 2018-02-27 13:20 | disposition home health service (06) | DRG 470 ==
LOC: AA 05:44 → SSU 08:54
PROVIDERS: ADMIT Orthopaedic Surgery Adult Reconstructive Orthopaedic Surgery; ATTEND Orthopaedic Surgery Adult Reconstructive Orthopaedic Surgery
PROC: 0T9B70Z Drainage of Bladder with Drainage Device, Via Natural or Artificial Opening (ICD-10-PCS; 2018-02-25)
PROC: 0T7D7ZZ Dilation of Urethra, Via Natural or Artificial Opening (ICD-10-PCS; 2018-02-25)
PROC: 0SRC0J9 Replacement of Right Knee Joint with Synthetic Substitute, Cemented, Open Approach (ICD-10-PCS; principal; 2018-02-25 07:30)
DX: M17.11 Unilateral primary osteoarthritis, right knee (principal); Z96.652 Presence of left artificial knee joint; R55 Syncope and collapse; R11.0 Nausea; N35.9 Urethral stricture, unspecified; I95.9 Hypotension, unspecified; I12.9 Hypertensive chronic kidney disease with stage 1 through stage 4 chronic kidney disease, or unspecified chronic kidney disease; N18.3 Chronic kidney disease, stage 3 (moderate); M25.761 Osteophyte, right knee; Z85.46 Personal history of malignant neoplasm of prostate; Z87.442 Personal history of urinary calculi; Z88.1 Allergy status to other antibiotic agents; Z72.89 Other problems related to lifestyle; Z92.3 Personal history of irradiation
CPT/HCPCS: 36415; 80048; 85014; 85018; 85049; 85610; 88305; 88311; 93005; A9270-GY; C1776; G8978-GP-CJ; G8978-GP-CK; G8979-GP-CI; G8980-GP-CJ; G8987-GO-CJ; G8988-GO-CI; J0690; J1100; J1650; J2250; J2405; J2704; J3010

== ENCOUNTER 2018-04-13 14:34 | Emergency (ER) | payer MEDICARE, OTHER ==
--- OUTSIDE RECORDS SUMMARY | 2018-04-13 14:42 | XMS REPORT ---
:1930 External Reference #:[id number] Author Organization [employer] Address [address] [address] Phone [phone] Care Team Providers Name Role Phone Nick Hudson MD Primary Care Physician Unavailable Payers Type Date Identification Numbers Payment Provider Subscriber Medicare Primary Policy Number: [id number] Medicare Smiley Altman PayID: [id number] [address] [place] [address] Medigap Part B Policy Number: [id number] [employer] Smiley Altman Group Number: [id number] [address] PayID: [id number] [place] [address] Problems Date Description Provider Status Onset: 08/12/2017 Essential hypertension Nick Hudson, Active Domo,FACP Onset: 01/27/2018 Localized, primary osteoarthritis Sandra Turner M.D. Active Onset: 02/04/2018 Mobitz type I incomplete Nick Hduson, Active atrioventricular block Domo,FACP Onset: 02/11/2018 Vitamin B12 deficiency (non Nick Hudson, Active anaemic) Domo,FACP Onset: 03/15/2018 Aftercare following joint Sandra Turner M.D. Active replacement surgery Onset: 03/15/2018 Arthroplasty of knee aSndra Turner M.D. Active Family History Date Family Member(s) Problem(s) Comments General Heart Disease Father Alcoholism Drinker, had liver disease. 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 Use consumes 2 beers per week Smoking 02/04/2018 Patient is a former smoker used to smoke cigars, quit 1999 Daily Caffeine Consumes on average 1 cup of regular coffee per day Exercise Type/Frequency Exercises regularly water/pool swimming 5x/week Allergies, Adverse Reactions, Alerts Date Description Reaction Status Severity Comments 11/08/2014 Cipro active rash Medications Medication Date Status Form Strength Qnty SIG Indications Ordering Provider Keflex 04/05 Active Capsules 500mg 30cap 1 tablet by S81.801A s mouth q6 hours Domo Turner Compression 03/08 Active Misc 2unit knee high Sandra Stock s compression rachid Turner M.D. Cyanocobalamin 02/11 Active Solution 1000mcg/M 10uni 1 milliliters L ts intramuscular Umm Hudson, [id number] M.DEdin,FACP Nifedipine ER 02/04 Active Tablets 60mg one tab daily ER 24HR Valentino, RN LONG TERM CARE Eucerin 08/05 Active Cream 240gm apply twice a day Valentino, RN LONG TERM CARE Tylenol 08/05 Active Capsules 325mg 120ca 2 tablets ps every 4 hours Valentino, as needed for RN LONG TERM CARE pain Col Rite 08/05 Active Annika /2017 Valentino, RN LONG TERM CARE Triamcinolone 08/05 Active Cream 0.1% 60gm apply small Annika Acet amt qd prn Valentino, RN LONG TERM CARE Losartan Active Tablets 100-25mg 30tab 1 by mouth Annika Potassium/[place] /0000 s every day Valentino chlorothiazide RN LONG TERM CARE Terazosin HCL Active Capsules 2mg 90cap Take 1 capsule Annika 0000 s orally qhs Valentino, RN LONG TERM CARE Percocet 02/27 Hx Tablets 5-325mg 90tab 1-2 by mouth s every 6 hours Johnny, - as needed pain M.D. 03/07 Colace 02/27 Hx Capsules 100mg 90cap 1 tab by mouth s 2-3 times a Johnny, - day as needed M.D. 03/07 Coumadin 02/27 Hx Tablets 2mg 90tab take 1-3 tabs s by mouth at 5 Johnny, - at night as M.D. 04/03 directed Triamcinolone 08/05 Hx Cream 0.1% 15uni apply thin Annika Acetonide ts film twice Valentino, - daily RN LONG TERM CARE 08/05 Percocet 12/22 Hx Tablets 5-325mg 90tab 1-2 tabs by Sandra s mouth q4-6 as Johnny, - needed pain M.D. 03/01 Coumadin 12/22 Hx Tablets 2mg 90tab 1-3 tab by Sandra s mouth as Johnny, - directed at M.D. 02/28 5pm daily /2014 Colace 12/22 Hx Capsules 100mg 60cap 1 tab by mouth s twice a day as Johnny, - needed M.D. 05/29 constipation /2013 Naproxen Hx Tablets 250mg 1 tab by mouth Unknown /0000 twice daily - 08/05 Nifedipine ER 00 Hx Tablets 60mg 1 by mouth Unknown /0000 ER 24HR every day - 08/05 Fexofenadine Hx Tablets 180mg 1 by mouth Unknown HCL /0000 every day - 01/26 Nefedipine 0000 Hx once daily Annika /0000 Valentino, - RN LONG TERM CARE 02/04 Medications Administered in Office Medication Date Status Form Strength Qnty SIG Indications Ordering Provider B-12 Injection Administered Injection Nurse Visit 018 A B-12 Injection Administered Injection Nurse Visit 018 A Depomedrol Administered Injection Sandra 80MG 015 Domo Turner Vital Signs Date Vital Result Comment 04/05/2018 Height 66.25 inches 5'6.25" Weight 148.00 lb Heart Rate 75 /min BP Systolic 114 mmHg BP Diastolic 76 mmHg Body Temperature 96.2 F BMI (Body Mass Index) 23.7 kg/m2 03/15/2018 Height 66.25 inches 5'6.25" Weight 148.00 lb BP Systolic 124 mmHg BP Diastolic 72 mmHg Body Temperature 97.8 F Pain Level 3 BMI (Body Mass Index) 23.7 kg/m2 03/08/2018 Height 66.25 inches 5'6.25" Weight 148.00 lb BP Systolic 110 mmHg BP Diastolic 60 mmHg Body Temperature 97.5 F Pain Level 0 BMI (Body Mass Index) 23.7 kg/m2 02/15/2018 Height 66.25 inches 5'6.25" Weight 149.00 lb Heart Rate 58 /min BP Systolic Sitting 142 mmHg LA reg cuff BP Diastolic Sitting 64 mmHg LA reg cuff Pain Level 5 BMI (Body Mass Index) 23.9 kg/m2 02/04/2018 Weight 148.00 lb Heart Rate 75 [...] Test Date Test Result H/L Range Note Inr/Protime 03/22/2018 Inr 1.53 High 0.77-1.02 1 Inr/Protime 03/18/2018 Inr 1.91 High 0.77-1.02 2 Inr/Protime 03/15/2018 Inr 2.53 High 0.77-1.02 Type & Screen 02/15/2018 Patient Blood Type A Positive 3 Antibody Screen NEGATIVE 3 Urinalysis Profile 02/15/2018 Urine Color Yellow 3 Urine Appearance Clear 3 Urine Specific [place] 1.012 1.010-1.030 3 Urine pH 5.0 5-9 3 Urine Urobilinogen Negative Negative 3 Urine Ketones Negative Negative 3 Urine Protein 1+(30 mg/dL) Negative 3 Urine Leukocytes Negative Negative 3 Urine Blood 1+ Negative 3 Urine Nitrite Negative Negative 3 Urine Bilirubin Negative Negative 3 Urine Glucose Negative Negative 3 Urine White Blood Cell Trace(0-5/hpf) Absent 3 Urine Red Blood Cell Trace(0-2/hpf) Absent 3 Urine Bacteria Absent Absent 3 Urine Squamous Epithelial Cell Present Absent 3 Inr/Protime 02/15/2018 Inr 0.92 0.77-1.02 3 Laboratory test finding 02/15/2018 Partial Thrombo 34.6 seconds 26.0- 36.3 3 Time PTT Urine Culture And 02/15/2018 Urine Culture SEE RESULT BELOW 3, 4 Sensitivities Laboratory test finding 02/09/2018 Vitamin B12 178 pg/mL Low 180-914 5 CBC Auto Diff 02/08/2018 White Blood 4.5 10^3/uL 3.5-10.8 Count Red Blood Count 3.98 10^6/uL Low 4.0-5.4 Hemoglobin 12.7 g/dL Low 14.0-18.0 Hematocrit 39 % Low 42-52 Mean Corpuscular Volume 97 fL High 80-94 Mean Corpuscular Hemoglobin 32 pg High 27-31 Mean Corpuscular HGB Conc 33 g/dL 31-36 Red Cell Distribution Width 14 % 10.5-15 Platelet Count 152 10^3/uL 150-450 Mean Platelet Volume 9 um3 7.4-10.4 Abs Neutrophils 3.1 10^3/uL 1.5-7.7 Abs Lymphocytes 0.9 10^3/uL Low 1.0-4.8 Abs Monocytes 0.4 10^3/uL 0-0.8 Abs Eosinophils 0.1 10^3/uL 0-0.6 Abs Basophils 0 10^3/uL 0-0.2 Abs Nucleated RBC 0 10^3/uL Granulocyte % 67.2 % 38-83 Lymphocyte % 20.6 % Low 25-47 Monocyte % 9.8 % High 0-7 Eosinophil % 1.7 % 0-6 Basophil % 0.7 % 0-2 Nucleated Red Blood Cells % 0 Comp Metabolic Panel 02/08/2018 Sodium 140 mmol/L 133-145 Potassium 4.4 mmol/L 3.5-5.0 Co2 Carbon Dioxide 21 mmol/L Low 22-32 Glucose 101 mg/dL High 70-100 Blood Urea Nitrogen 37 mg/dL High 6-24 Creatinine 1.80 mg/dL High 0.67-1.17 BUN/Creatinine Ratio 20.6 High 8-20 Calcium 8.8 mg/dL 8.6-10.3 Total Protein 6.4 g/dL 6.4-8.9 Albumin 3.7 g/dL 3.2-5.2 Globulin 2.7 g/dL 2-4 Albumin/Globulin Ratio 1.4 1-3 Total Bilirubin 0.50 mg/dL 0.2-1.0 Alkaline Phosphatase 56 U/L 34-104 Alt 10 U/L 7-52 Ast 15 U/L 13-39 Egfr Non- 35.8 >60 Egfr 46.0 >60 6 Chloride 113 mmol/L High 101-111 Anion Gap 6 mmol/L 2-11 Basic Metabolic Panel 01/18/2018 Sodium 140 mmol/L 133-145 Potassium 4.5 mmol/L 3.5-5.0 Chloride 111 mmol/L 101-111 Co2 Carbon Dioxide 25 mmol/L 22-32 Anion Gap 4 mmol/L 2-11 Glucose 95 mg/dL 70-100 Blood Urea Nitrogen 36 mg/dL High 6-24 Creatinine 1.64 mg/dL High 0.67-1.17 BUN/Creatinine Ratio 22.0 High 8-20 Calcium 9.3 mg/dL 8.6-10.3 Egfr Non- 39.8 >60 Egfr 51.2 >60 7 Inr/Protime 01/08/2015 Inr 2.29 High 0.78-1.07 8 Basic Metabolic Panel 01/08/2015 Sodium 138 mmol/L 133-145 Potassium 4.6 mmol/L 3.5-5.0 Chloride 104 mmol/L 101-111 Co2 Carbon Dioxide 26 mmol/L 22-32 Anion Gap 8 mmol/L 2-11 Glucose 105 mg/dL High 70-100 Blood Urea Nitrogen 45 mg/dL High 6-24 Creatinine 2.17 mg/dL High 0.67-1.17 BUN/Creatinine Ratio 20.7 High 8-20 Calcium 8.5 mg/dL Low 8.6-10.3 Egfr Non- 29.0 >60 Egfr 37.4 >60 9 Urinalysis Profile 12/22/2014 Urine Color Yellow 10 Urine Appearance Clear 10 Urine Specific [place] 1.017 1.010-1.030 10 Urine pH 5.0 5-9 10 Urine Urobilinogen Negative Negative 10 Urine Ketones Negative Negative 10 Urine Protein 1+(30 mg/dL) Negative 10 Urine Leukocytes Negative Negative 10 Urine Blood Negative Negative 10 * * Negative 10, 11 Urine Nitrite Negative Negative 10 Urine Bilirubin Negative Negative 10 Urine Glucose Negative Negative 10 Urine White Blood Cell Trace(0-5/hpf) Absent 10 Urine Red Blood Cell Trace(0-2/hpf) Absent 10 Urine Bacteria Absent Absent 10 CBC No Diff 12/22/2014 White Blood Count 6.3 10^3/uL 4.8-10.8 10 Red Blood Count 4.57 10^6/uL 4.0-5.4 10 Hemoglobin 14.6 g/dL 14.0-18.0 10 Hematocrit 44 % 42-52 10 Mean Corpuscular Volume 97 fL High 80-94 10 Mean Corpuscular Hemoglobin 32 pg High 27-31 10 Mean Corpuscular HGB Conc 33 g/dL 31-36 10 Red Cell Distribution Width 14 % 10.5-15 10 Platelet Count 171 10^3/uL 150-450 10 Mean Platelet Volume 10 um3 7.4-10.4 10 Basic Metabolic Panel 12/22/2014 Sodium 141 mmol/L 133-145 10 Potassium 4.2 mmol/L 3.5-5.0 10 Chloride 110 mmol/L 101-111 10 Co2 Carbon Dioxide 26 mmol/L 22-32 10 Anion Gap 5 mmol/L 2-11 10 Glucose 84 mg/dL 70-100 10 Blood Urea Nitrogen 37 mg/dL High 6-24 10 Creatinine 1.49 mg/dL High 0.67-1.17 10 BUN/Creatinine Ratio 24.8 High 8-20 10 Calcium 9.3 mg/dL 8.6-10.3 10 Egfr Non- 44.8 >60 10 Egfr 57.6 >60 10, 12 Type & Screen 12/22/2014 Patient Blood Type A Positive 10 Antibody Screen NEGATIVE 10 CBC Auto Diff 12/12/2014 White Blood Count [...] Egfr Non- 42.2 >60 Egfr 54.3 >60 13 1 CALL STAT RESULTS [phone] FAX STAT RESULTS [phone] 2 PLEASE CALL STAT RESULT TO [phone] PLEASE FAX STAT RESULT TO [phone] 3 PAIN IN RIGHT KNEE, EFFUSION, RIGHT KNEE, UNILATER 4 SEE RESULT BELOW Name: SMILEY ALTMAN : [address]: Sandra Turner MD Acct: [id number] Unit: [id number] AGE: 87 Location: [facility] Re02/15/18 SEX: M Status: REG REF SPEC: [id number] DANDRE: 02/15/18-1505 [facility] DR: Sandra Turner MD REQ: [id number] RECD: 02/15/18 STATUS: KEL MORTENSEN DR: Annika Peterson MD _ SOURCE: URINE SPDESC: ORDERED: Urine Culture QUERIES: Urine Source: Clean Catch Procedure Result Reported Site Urine Culture Final 02/16/18- 1205 ML No growth of clinically significant organisms * ML - Main Lab . END OF REPORT DEPARTMENT OF PATHOLOGY, [address] [place] [address] Soren Brock M.D. Director [facility] # [id number] 5 Normal Range 180 to 914 Indeterminate Range 145 to 180 Deficient Range <145 6 Because ethnic data is not always [...] 15-29 5 Kidney failure <15 (or dialysis) 8 Please note: Effective December 27, 2014, the reference value for this test has changed due to the validation and activation of a new reagent lot number. 9 Because ethnic data is not always readily [...] 15-29 5 Kidney failure <15 (or dialysis) 10 AA SURGERY 01/02/15 11 *Ascorbic acid is present which may interfere with detection of blood. 12 Because ethnic data is not always readily [...] 15-29 5 Kidney failure <15 (or dialysis) 13 Because ethnic data is not always readily [...] dialysis) Procedures Date CPT Code Description Status 04/01/2018 63502 Admin Of Inj Completed 02/25/2018 73318 TKR Total Knee Replacement Completed 02/25/2018 30575 TKR Total Knee Replacement Completed 02/11/2018 74675 Admin Of Inj Completed 02/04/2018 18919 EKG Tracing & Interpretation Completed 04/30/2015 96445 Inject/Drain Joint/Bursa Major Completed 01/02/2015 71518 TKR Total Knee Replacement Completed 01/02/2015 56215 TKR Total Knee Replacement Completed 11/13/2014 26680 Xray Knee 3 Views Completed 08/30/2012 Colonoscopy Completed 12/28/2006 15108 EKG, Interpretation Only Completed 05/14/2005 Colonoscopy Completed Encounters Type Date Location Provider CPT E/M Dx [facility] [address] [facility]10 Hospitalists N35.9 N18.3 Z96.651 Office Visit 02/26/2018 3:04p [facility], KHRIS Talley 03826 N18.3 Hospitalists I10 N35.9 Z96.651 Office Visit 02/25/2018 3:03p [facility], Maye Negron N.P. 27833 I10 Hospitalists N18.3 N35.9 Z96.651 Office Visit 02/04/2018 8:40a [facility] [place] [address] Z01.818 Medicine - [address] M25.561 M17.11 Office Visit 01/27/2018 9:00a [facility] Turner M.D. 18575 M17.11 [facility] M21.161 M25.561 M25.461 Office Visit 08/05/2017 11:30a [facility] Internal [place] [address] L20.84 Office Visit 01/05/2015 10:49a [facility], Maye Negron, N.P. 16911 584.9 Hospitalists V43.65 401.9 Office Visit 01/04/2015 10:48a [facility], [place] [address] 584.9 Hospitalists V43.65 401.9 Office Visit 11/13/2014 11:00a [facility] Turner M.D. 86263 715.16 [facility] Plan of Care Future Appointment(s):04/21/2018 9:45 am - Sandra Turner M.D. at [facility]05/03/2018 1:00 pm - Nurse Visit A at [facility] Internal Medicine - Bitvzuemn98/20/2018 1:40 pm - Annika Valentino NP at [facility] Internal Medicine - [address]/05/2018 - Sandra Turner M.D.Z96.651 Presence of right artificial knee jointFollow up:Follow up: 2 tgbqtC67.1 Aftercare following joint replacement zuxctabM27.561 Pain in right kneeS81.801A Unspecified open wound, right lower leg, initial encounterNew Medication:Keflex 500 mg
--- OUTSIDE RECORDS SUMMARY | 2018-04-13 14:43 | XMS REPORT ---
:1930 External Reference #:[id number] Author Organization [facility] Address [address] [address] Phone [phone] Care Team Providers Name Role Phone Nick Hudson MD Primary Care Physician Unavailable Payers Type Date Identification Numbers Payment Provider Subscriber Medicare Primary Policy Number: [id number] Medicare Smiley Altman PayID: [id number] [address] [place] [address] Medigap Part B Policy Number: [id number] [employer] Smiley Altman Group Number: [id number] [address] PayID: [id number] [place] [address] Problems Date Description Provider Status Onset: 08/12/2017 Essential hypertension Nick Hudson, Active Domo,FACP Onset: 01/27/2018 Localized, primary osteoarthritis Sandra Turner M.D. Active Onset: 02/04/2018 Mobitz type I incomplete Nick Hudson, Active atrioventricular block Domo,FACP Onset: 02/11/2018 Vitamin B12 deficiency (non Nick Hudson, Active anaemic) Domo,FACP Onset: 03/15/2018 Aftercare following joint Sandra Turner M.D. Active replacement surgery Onset: 03/15/2018 Arthroplasty of knee Sandra Turner M.D. Active Family History Date Family Member(s) Problem(s) Comments General Heart Disease Father Alcoholism Drinker, had liver disease. age 72 Mother Obesity Mother Heart Disease CHF, age57 Social History Type Date Description Comments Lives With Alone Occupation Retired [employer] ETOH Use consumes 2 beers per week [...] Form Strength Qnty SIG Indications Ordering Provider Compression 03/08 Active Misc 2unit knee high Sandra Stockings s compression Johnny, stockings M.D. Coumadin 02/27 Active Tablets 2mg 90tab take 1-3 tabs Sandra s by mouth at 5 Johnny, at night as M.D. directed Cyanocobalamin 02/11 Active Solution 1000mcg/M 10uni 1 milliliters L ts intramuscular Umm Ronquillod, [id number] M.D.,FACP Nifedipine ER 02/04 Active Tablets 60mg one tab daily ER 24HR Valentino, NP Eucerin 08/05 Active Cream 240gm apply twice a day Valentino, NP Tylenol 08/05 Active Capsules 325mg 120ca 2 tablets ps every 4 hours Valentino, as needed for FINANCIAL SYSTEMS ADMINISTRATOR pain Col Rite 08/05 Active Annika /2017 Valentino, NP Triamcinolone 08/05 Active Cream 0.1% 60gm apply small Annika Acetonide amt qd prn Valentino, FINANCIAL SYSTEMS ADMINISTRATOR Losartan Active Tablets 100-25mg 30tab 1 by mouth Annika Potassium/Chandler /0000 s every day Valentino chlorothiazide FINANCIAL SYSTEMS ADMINISTRATOR Terazosin HCL Active Capsules 2mg 90cap Take 1 capsule Annika s orally qhs Valentino, NP Percocet 02/27 Hx Tablets 5-325mg 90tab 1-2 by mouth Sandra s every 6 hours Johnny, - as needed pain M.D. 03/07 Colace 02/27 Hx Capsules 100mg 90cap 1 tab by mouth Sandra s 2-3 times a Johnny, - day as needed M.D. 03/07 Triamcinolone 08/05 Hx Cream 0.1% 15uni apply thin Annika Acetonide ts film twice Valentino, - daily FINANCIAL SYSTEMS ADMINISTRATOR 08/05 Percocet 12/22 Hx Tablets 5-325mg 90tab 1-2 tabs by Sandra s mouth q4-6 as Johnny, - needed pain M.D. 03/01 Coumadin 12/22 Hx Tablets 2mg 90tab 1-3 tab by Sandra s mouth as Johnny, - directed at M.D. 02/28 5pm daily /2014 Colace 12/22 Hx Capsules 100mg 60cap 1 tab by mouth Sandra s twice a day as Johnny, - needed M.D. 05/29 constipation /2013 Naproxen 00 Hx Tablets 250mg 1 tab by mouth Unknown /0000 twice daily - 08/05 Nifedipine ER 00/00 Hx Tablets 60mg 1 by mouth Unknown /0000 ER 24HR every day - 08/05 Fexofenadine Hx Tablets 180mg 1 by mouth Unknown HCL /0000 every day - 01/26 Nefedipine 00/00 Hx once daily Annika /0000 Valentino, - FINANCIAL SYSTEMS ADMINISTRATOR 02/04 Medications Administered in Office Medication Date Status Form Strength Qnty SIG Indications Ordering Provider B-12 Injection Administered Injection Nurse Visit 018 A Depomedrol Administered Injection Sandra 80MG 015 Domo Turner Vital Signs Date Vital Result Comment 03/15/2018 Height 66.25 inches 5'6.25" Weight 148.00 [...] Test Date Test Result H/L Range Note Type & Screen 02/15/2018 Patient Blood Type A Positive 1 Antibody Screen NEGATIVE 1 Urinalysis Profile 02/15/2018 Urine Color Yellow 1 Urine Appearance Clear 1 Urine Specific [place] 1.012 1.010-1.030 1 Urine pH 5.0 5-9 1 Urine Urobilinogen Negative Negative 1 Urine Ketones Negative Negative 1 Urine Protein 1+(30 mg/dL) Negative 1 Urine Leukocytes Negative Negative 1 Urine Blood 1+ Negative 1 Urine Nitrite Negative Negative 1 Urine Bilirubin Negative Negative 1 Urine Glucose Negative Negative 1 Urine White Blood Cell Trace(0-5/hpf) Absent 1 Urine Red Blood Cell Trace(0-2/hpf) Absent 1 Urine Bacteria Absent Absent 1 Urine Squamous Epithelial Cell Present Absent 1 Inr/Protime 02/15/2018 Inr 0.92 0.77-1.02 1 Laboratory test finding 02/15/2018 Partial Thrombo 34.6 seconds 26.0- 36.3 1 Time PTT Urine Culture And 02/15/2018 Urine Culture SEE RESULT BELOW 1, 2 Sensitivities Laboratory test finding 02/09/2018 Vitamin B12 178 pg/mL Low 180-914 3 CBC Auto Diff 02/08/2018 White Blood 4.5 [...] Egfr Non- 35.8 >60 Egfr 46.0 >60 4 Chloride 113 mmol/L High 101-111 Anion Gap [...] Egfr Non- 39.8 >60 Egfr 51.2 >60 5 Inr/Protime 01/08/2015 Inr 2.29 High 0.78-1.07 6 Basic Metabolic Panel 01/08/2015 Sodium 138 mmol/L 133-145 Potassium 4.6 mmol/L 3.5-5.0 Chloride 104 mmol/L 101-111 Co2 Carbon Dioxide 26 mmol/L 22-32 Anion Gap 8 mmol/L 2-11 Glucose 105 mg/dL High 70-100 Blood Urea Nitrogen 45 mg/dL High 6-24 Creatinine 2.17 mg/dL High 0.67-1.17 BUN/Creatinine Ratio 20.7 High 8-20 Calcium 8.5 mg/dL Low 8.6-10.3 Egfr Non- 29.0 >60 Egfr 37.4 >60 7 Urinalysis Profile 12/22/2014 Urine Color Yellow 8 Urine Appearance Clear 8 Urine Specific [place] 1.017 1.010-1.030 8 Urine pH 5.0 5-9 8 Urine Urobilinogen Negative Negative 8 Urine Ketones Negative Negative 8 Urine Protein 1+(30 mg/dL) Negative 8 Urine Leukocytes Negative Negative 8 Urine Blood Negative Negative 8 * * Negative 8, 9 Urine Nitrite Negative Negative 8 Urine Bilirubin Negative Negative 8 Urine Glucose Negative Negative 8 Urine White Blood Cell Trace(0-5/hpf) Absent 8 Urine Red Blood Cell Trace(0-2/hpf) Absent 8 Urine Bacteria Absent Absent 8 CBC No Diff 12/22/2014 White Blood Count 6.3 10^3/uL 4.8-10.8 8 Red Blood Count 4.57 10^6/uL 4.0-5.4 8 Hemoglobin 14.6 g/dL 14.0-18.0 8 Hematocrit 44 % 42-52 8 Mean Corpuscular Volume 97 fL High 80-94 8 Mean Corpuscular Hemoglobin 32 pg High 27-31 8 Mean Corpuscular HGB Conc 33 g/dL 31-36 8 Red Cell Distribution Width 14 % 10.5-15 8 Platelet Count 171 10^3/uL 150-450 8 Mean Platelet Volume 10 um3 7.4-10.4 8 Basic Metabolic Panel 12/22/2014 Sodium 141 mmol/L 133-145 8 Potassium 4.2 mmol/L 3.5-5.0 8 Chloride 110 mmol/L 101-111 8 Co2 Carbon Dioxide 26 mmol/L 22-32 8 Anion Gap 5 mmol/L 2-11 8 Glucose 84 mg/dL 70-100 8 Blood Urea Nitrogen 37 mg/dL High 6-24 8 Creatinine 1.49 mg/dL High 0.67-1.17 8 BUN/Creatinine Ratio 24.8 High 8-20 8 Calcium 9.3 mg/dL 8.6-10.3 8 Egfr Non- 44.8 >60 8 Egfr 57.6 >60 8, 10 Type & Screen 12/22/2014 Patient Blood Type A Positive 8 Antibody Screen NEGATIVE 8 CBC Auto Diff 12/12/2014 White Blood Count [...] Egfr Non- 42.2 >60 Egfr 54.3 >60 11 1 PAIN IN RIGHT KNEE, EFFUSION, RIGHT KNEE, UNILATER 2 SEE RESULT BELOW Name: SMILEY ALTMAN : [address]: Sandra Turner MD Acct: [id number] Unit: [id number] AGE: 87 Location: [facility] Re02/15/18 SEX: M Status: REG REF SPEC: [id number] DANDRE: 02/15/18-15[address] [facility] [address]: Sandra Turner MD REQ: [id number] RECD: 02/15/18 STATUS: KEL MORTENSEN DR: Annika Peterson MD _ SOURCE: URINE SPDESC: ORDERED: Urine Culture QUERIES: Urine Source: Clean Catch Procedure Result Reported Site Urine Culture Final 02/16/18- 1205 ML No growth of clinically significant organisms * ML - Main Lab . END OF REPORT DEPARTMENT OF PATHOLOGY, [address] [place] [address] Soren Brock M.D. Director [facility] # [id number] 3 Normal Range 180 to 914 Indeterminate Range 145 to 180 Deficient Range <145 4 Because ethnic data is not always readily [...] 15-29 5 Kidney failure <15 (or dialysis) 5 Because ethnic data is not always readily [...] 15-29 5 Kidney failure <15 (or dialysis) 6 Please note: Effective December 27, 2014, the reference value for this test has changed due to the validation and activation of a new reagent lot number. 7 Because ethnic data is not always [...] 5 Kidney failure <15 (or dialysis) 8 AA SURGERY 01/02/15 9 *Ascorbic acid is present which may interfere with detection of blood. 10 Because ethnic data is not always readily [...] 15-29 5 Kidney failure <15 (or dialysis) 11 Because ethnic data is not always readily [...] dialysis) Procedures Date CPT Code Description Status 02/25/2018 71968 TKR Total Knee Replacement Completed 02/25/2018 93158 TKR Total Knee Replacement Completed 02/11/2018 90803 Admin Of Inj Completed 02/04/2018 36069 EKG Tracing & Interpretation Completed 04/30/2015 84651 Inject/Drain Joint/Bursa Major Completed 01/02/2015 30453 TKR Total Knee Replacement Completed 01/02/2015 34169 TKR Total Knee Replacement Completed 11/13/2014 36685 Xray Knee 3 Views Completed 08/30/2012 Colonoscopy Completed 12/28/2006 11273 EKG, Interpretation Only Completed 05/14/2005 Colonoscopy Completed Encounters Type Date Location Provider CPT E/M Dx Office Visit 02/27/2018 3:05p [facility], KHRIS Talley [address] I10 Hospitalists N35.9 N18.3 Z96.651 Office Visit 02/26/2018 3:04p [facility],KHRIS Coyle 63958 N18.3 Hospitalists I10 N35.9 Z96.651 Office Visit 02/25/2018 3:03p [facility]roshni Negron, N.PEdin [address]99[address] I10 Hospitalists N18.3 N35.9 Z96.651 Office Visit 02/04/2018 8:40a [facility] Annika Valentino, SRINATH 85893 Z01.818 Medicine - [address] M25.561 M17.11 Office Visit 01/27/2018 9:00a [facility] Sandra Turner M.D. 64776 M17.11 [facility] M21.161 M25.561 M25.461 Office Visit 08/05/2017 11:30a [facility] Medicine - Annika Valentino, SRINATH [address] L20.84 Office Visit 01/05/2015 10:49a [facility], Tanya Deleon.Ariel. 22226 584.9 Hospitalists V43.65 401.9 Office Visit 01/04/2015 10:48a [facility], [place] [address] 584.9 Hospitalists V43.65 401.9 Office Visit 11/13/2014 11:00a [facility] Sandra Turner M.D. 92972 715.16 [facility] Plan of Care Future Appointment(s):04/05/2018 9:00 am - Sandra Turner M.D. at [facility]04/01/2018 1:00 pm - Nurse Visit A at [facility] Medicine - Fvnxjyfen35/20/2018 1:40 pm - Annika Valentino NP at [facility] Medicine - [address]/15/2018 - Sandra Turner M.D.Z96.651 Presence of right artificial knee jointFollow up:Follow up: 3 bnjhzM64.1 Aftercare following joint replacement jskwjtfM56.561 Pain in right kneeM25.461 Effusion, right knee
--- NOTE | 2018-04-13 15:45 | UC ---
Knee Pain HPI - HPI Summary HPI Summary: PATIENT WITH HISTORY OF TOTAL RIGHT KNEE REPLACEMENT DONE 02/25/[address] TURNER PRESENTS AFTER FALLING TODAY ON THE PAVEMENT LANDING DIRECTLY ON THIS RIGHT KNEE. INCISION SITE HAS OPENED DUE TO THE TRAUMA. PATIENT DENIES ANY PAIN AND IS ABLE TO AMBULATE WITHOUT DIFFICULTY. NO HEAD INJURY OR LOC. - History of Current Complaint Chief Complaint: UCLowerExtremity Stated Complaint: KNEE INJURY Time Seen by Provider: 04/13/18 15:12 Hx Obtained From: Patient, Family/Side Puller - DAUGHTER, SON-IN-LAW Onset/Duration: Sudden Onset, Lasting Hours, Still Present Severity Initially: Moderate Severity Currently: Moderate Pain Intensity: 2 Pain Scale Used: 0-10 Numeric Character: Dull Aggravating Factor(s): Nothing Alleviating Factor(s): Nothing Associated Signs And Symptoms: Positive: Swelling Able to Bear Weight: Yes - DENIES PAIN - Allergies/Home Medications Allergies/Adverse Reactions: Allergies Allergy/AdvReac Type Severity Reaction Status Date / Time ciprofloxacin [From Cipro] Allergy Hives Verified 04/13/18 14:47 PMH/Surg Hx/FS Hx/Imm Hx Cardiovascular History: Hypertension Cancer History: Prostate Cancer - Surgical History Surgical History: Yes Surgery Procedure, Year, and Place: Kidney stone removal, lithotripsy x3. - Family History Known Family History: Positive: Hypertension - Social History Alcohol Use: Occasionally Substance Use Type: None Smoking Status (MU): Never Smoked Tobacco Amount Used/How Often: occassional cigar or pipe When Did the Patient Quit Smoking/Using Tobacco: 1989 - Immunization History Most Recent Influenza Vaccination: 2013 Most Recent Pneumonia Vaccination: 2008 Review of Systems Constitutional: Negative Skin: Other - Wound dehisced right knee Respiratory: Negative Cardiovascular: Negative Gastrointestinal: Negative Musculoskeletal: Edema All Other Systems Reviewed And Are Negative: Yes Physical Exam Triage Information Reviewed: Yes Appearance: Well-Appearing, No Pain Distress, Well-Nourished Vital Signs: Initial Vital Signs Temp 97.8 F 04/13/18 14:41 Pulse 80 04/13/18 14:41 Resp 20 04/13/18 14:41 BP 118/53 04/13/18 14:41 Pulse Ox 99 04/13/18 14:41 Vital Signs Reviewed: Yes Eyes: Positive: Conjunctiva Clear ENT: Positive: Hearing grossly normal Neck: Positive: Supple Respiratory: Positive: No respiratory distress, No accessory muscle use Cardiovascular: Positive: Pulses Normal Abdomen Description: Positive: Soft Musculoskeletal: Positive: ROM Intact, Edema @ - RIGHT KNEE Neurological: Positive: Alert Psychological: Positive: Normal Response To Family, Age Appropriate Behavior Skin: Positive: Other - SURGICAL SITE DEHISCENCE RIGHT KNEE MEASURING 8.2CM X 0.6CM Diagnostics - Radiology RIGHT KNEE XRAY Xray Interpretation: No Acute Changes Radiology Interpretation Completed By: Radiologist Knee Pain Course/Dx - Course Course Of Treatment: 1654 - CALLED [facility] AND SPOKE WITH KHRIS LAM TO ADVISE OF PT ARRIVAL. - Differential Dx/Diagnosis Provider Diagnoses: SURGICAL SITE WOUND DEHISCENCE RIGHT KNEE, S/P FALL - Physician Notifications Discussed Patient Care With: Sandra Turner - ADVISED TO SEND PT TO [facility] FOR ORTHO EVAL Time Discussed With Above Provider: 16:45 Instructed by Provider To: MD Will See In ED Discharge - Sign-Out/Discharge Documenting (check all that apply): Discharge/Admit/Transfer - Discharge Plan Condition: Stable Disposition: HOME Patient Education Materials: Wound Dehiscence (ED) Referrals: Annika Valentino NP [Primary Care Provider] - Sandra Turner MD [Medical Doctor] - Additional Instructions: GO DIRECTLY TO THE [facility] FROM HERE. DR. TURNER HAS BEEN NOTIFIED OF YOUR CONDITION AND IS EXPECTING YOU. - Billing Disposition and Condition Condition: STABLE Disposition: HOME
--- NOTE | 2018-04-13 16:02 | RAD ---
INDICATION: Fall. Recent right knee arthroplasty COMPARISON: April 05, 2018 TECHNIQUE: Standing AP, lateral, and sunrise views were obtained. FINDINGS: The right knee prosthesis appears normally seated. There is no evidence of periprosthetic fracture. There is mild diffuse soft tissue swelling compatible with recent surgery. IMPRESSION: THE RIGHT KNEE PROSTHESIS APPEARS NORMALLY SEATED.
[2018-04-13 16:58] VITALS: BP 135/72
== END 2018-04-13 17:00 | disposition home or self-care (01) ==
LOC: UCEAST 14:34
DX: T81.31XA Disruption of external operation (surgical) wound, not elsewhere classified, initial encounter (principal); Z96.651 Presence of right artificial knee joint; I10 Essential (primary) hypertension; Z85.46 Personal history of malignant neoplasm of prostate; Z87.442 Personal history of urinary calculi; Z88.1 Allergy status to other antibiotic agents; Z87.891 Personal history of nicotine dependence
CPT/HCPCS: 99212; G0463

== ENCOUNTER 2018-04-13 17:26 | Day surgery (SDC) | payer MEDICARE, OTHER ==
--- NOTE | 2018-04-13 18:55 | ED ---
Lower Extremity - HPI Summary HPI Summary: 87-year-old male presents with right knee injury today. He has a history of a recent knee replacement done by Dr. Turner in january. He states that he slipped and fell onto his right knee. He opened the healing wound. He is not diabetic. He denies any other injury. Denies any foreign body in the wound. tetanus up-to-date. - History of Current Complaint Chief Complaint: EDSoftTissueLowExtr Stated Complaint: WOUND CARE Time Seen by Provider: 04/13/18 18:35 Pain Intensity: 0 - Allergies/Home Medications Allergies/Adverse Reactions: Allergies Allergy/AdvReac Type Severity Reaction Status Date / Time ciprofloxacin [From Cipro] Allergy Hives Verified 04/13/18 14:47 Home Medications: Home Medications Cyanocobalamin INJ * [Vitamin B12 INJ *] 1,000 mcg IM MONTHLY 04/13/18 [History Confirmed 04/13/18] Losartan/HCTZ 100/25 (NF) [Hyzaar 100/25 (NF)] 1 tab PO DAILY 04/13/18 [History Confirmed 04/13/18] NIFEdipine ER TAB* [Procardia Xl TAB*] 60 mg PO QAM 04/13/18 [History Confirmed 04/13/18] Terazosin CAP* [Hytrin CAP*] 2 mg PO BEDTIME 04/13/18 [History Confirmed ] Triamcinolone 0.5% CREAM(NF) [Triamcinolone 0.5% CREAM*] 1 applic TOPICAL BID [History Confirmed 04/13/18] PMH/Surg Hx/FS Hx/Imm Hx Endocrine/Hematology History: Denies: Hx Diabetes, Hx Thyroid Disease Cardiovascular History: Reports: Hx Hypertension Respiratory History: Denies: Hx Asthma, Hx Chronic Obstructive Pulmonary Disease (COPD) GI History: Denies: Hx Ulcer History: Reports: Hx Kidney Stones, Other Problems/Disorders - urethral stricture Musculoskeletal History: Reports: Hx Arthritis - right knee Sensory History: Reports: Hx Contacts or Glasses, Hx Hearing Aid - left ear Opthamlomology History: Reports: Hx Contacts or Glasses - Cancer History Cancer Type, Location and Year: Prostate Cancer Hx Chemotherapy: No - radiation - Surgical History Surgery Procedure, Year, and Place: Kidney stone removal, lithotripsy x3. Hx Anesthesia Reactions: No Infectious Disease History: No Infectious Disease History: Denies: Hx Clostridium Difficile, Hx Hepatitis, Hx Human Immunodeficiency Virus (HIV), Hx of Known/Suspected MRSA, Traveled Outside the [place] in Last 30 Days - Family History Known Family History: Positive: Hypertension - Social History Alcohol Use: Occasionally Substance Use Type: Reports: None Smoking Status (MU): Never Smoked Tobacco Amount Used/How Often: occassional cigar or pipe Review of Systems Negative: Chest Pain Negative: Shortness Of Breath Positive: Other - laceration right knee All Other Systems Reviewed And Are Negative: Yes Physical Exam - Summary Physical Exam Summary: 87-year-old male presents with right knee injury today. He has a history of a recent knee replacement done by Dr. Turner in january. He states that he slipped and fell onto his right knee. He opened the healing wound. He is not diabetic. He denies any other injury. Denies any foreign body in the wound. tetanus up-to-date. Triage Information Reviewed: Yes Vital Signs On Initial Exam: Initial Vitals Temp Pulse Resp BP Pulse Ox 98.1 F 95 18 148/65 97 04/13/18 17:33 04/13/18 17:33 04/13/18 17:33 04/13/18 17:33 04/13/18 17:33 Vital Signs Reviewed: Yes Appearance: Positive: Well-Appearing Skin: Positive: Warm, Dry, Other - 4cm by 1cm laceration on previous suture line of right knee Head/Face: Positive: Normal Head/Face Inspection Eyes: Positive: Normal, Conjunctiva Clear Respiratory/Lung Sounds: Positive: Clear to Auscultation, Breath Sounds Present Cardiovascular: Positive: Normal, RRR Musculoskeletal: Positive: Strength/ROM Intact - right knee, Other - good pulses Neurological: Positive: Normal Psychiatric: Positive: Normal Diagnostics - Vital Signs Vital Signs Temp Pulse Resp BP Pulse Ox 04/13/18 17:33 98.1 F 95 18 148/65 97 - Laboratory Lab Statement: Any lab studies that have been ordered have been reviewed, and results considered in the medical decision making process. Lower Extremity Course/Dx - Course Course Of Treatment: 87-year-old male presents with right knee injury today. He has a history of a recent knee replacement done by Dr. Turner in january. He states that he slipped and fell onto his right knee. He opened the healing wound. He is not diabetic. He denies any other injury. Denies any foreign body in the wound. tetanus up-to-date. on exam 4cm open laceration over right knee over previous incision. full ROM knee. neurovascular intact. Dr lopes evaluated in ED and will take to OR for clean out - Diagnoses Differential Diagnosis/HQI/PQRI: Positive: Other - dehsicence, laceration Provider Diagnoses: Laceration Discharge - Sign-Out/Discharge Documenting (check all that apply): Discharge/Admit/Transfer - Discharge Plan Condition: Good Disposition: ADMITTED TO [facility] Referrals: Annika Valentino NP [Primary Care Provider] - - Billing Disposition and Condition Condition: GOOD Disposition: [facility]P-[facility]
[2018-04-13] MEDS ORDERED: ceFAZolin 2 GM PREMIX (*) 2 GM/50 ML BAG IVPB ONE (19:51)
[2018-04-13] MEDS ORDERED: fentaNYL* 50 MCG/ML 2 ML VIAL (100 MCG VIAL) ONE (21:06)
[2018-04-13] MEDS ORDERED: Midazolam* 1 MG/ML 2 ML VIAL (2 MG) ONE (21:06)
[2018-04-13] MEDS ORDERED: Sterile Water for Inj* 10 ML ONE (21:19)
[2018-04-13] MEDS ORDERED: Chloroprocaine 3%* 20 ML VIAL ONE (21:19)
[2018-04-13] MEDS ORDERED: Naloxone* 0.4 MG/ML 1 ML VIAL IV PRN (21:30)
[2018-04-13] MEDS ORDERED: oxyCODONE TAB* 5 MG TAB PO PRN (21:30)
[2018-04-13] MEDS ORDERED: Acetaminophen TAB* 325 MG PO PRN (21:30)
[2018-04-13] MEDS ORDERED: Bupivacaine 0.25% SDV* 30 ML ONE (21:52)
[2018-04-13 22:38] VITALS: BP 142/77
--- NOTE | 2018-04-14 09:05 | OP ---
DATE OF OPERATION: 04/13/18 - [facility] DATE OF : [birth year] SURGEON: Sandra Turner MD ANESTHESIOLOGIST: Dr. Ahn. ANESTHESIA: Spinal. PRE-OP DIAGNOSIS: Right knee traumatic wound dehiscence. POST-OP DIAGNOSIS: Right knee traumatic wound dehiscence. OPERATIVE PROCEDURE: Right knee wound irrigation, debridement, and closure. ESTIMATED BLOOD LOSS: Less than 25 cc. SPECIMEN: None. COMPLICATIONS: None. BRIEF HISTORY/INDICATIONS: is an 87-year-old gentleman who had right total knee arthroplasty on 02/25/18. Postoperatively, he did well with no complication. He has been ambulating independently and taking part in formal physical therapy. [place], [place] he slipped on wet pavement falling directly on to the anterior knee. He immediately had bleeding and a large portion of his total knee incision had dehisced and opened. He was brought by his family to [facility] and transferred to the emergency room. He was kindly worked up by my colleague, Dr. Rodriguez and decision was made to take him to the operating room for formal wash out with inspection of the wound and wound closure. Informed consent was obtained from the patient and his family. They understood the risks of surgery included but were not limited to bleeding, infection of the total knee, continued infection of the wound, failure of the wound to heal, stroke, heart attack, blood clot and . He wished to proceed. INTRAOPERATIVE FINDINGS: Intraoperatively, the distal 8 cm of the total knee incision had opened by about 1 cm diameter. This did show visible patellar tendon and capsule. Upon exam of this wound, there was no direct communication to the knee joint appreciated. DESCRIPTION OF PROCEDURE: Mr. Velazco was identified in the preanesthesia unit. His right lower extremity was marked as the correct operative side. Informed consent was signed and placed in the chart. The patient was taken to the operating room and had spinal anesthetic administered without difficulty. Tourniquet was placed on the right thigh but was not inflated. Right lower extremity was prepped and draped in the usual sterile fashion. Preop time-out was made to correctly identify the patient's side and site. Appropriate perioperative antibiotics were given within one hour of incision. 3 L of sterile saline were used to irrigate the wound. The wound was 8 cm x 1 cm in diameter. This wound involved the distal portion of the total knee arthroplasty incision. Probing of the capsule and tendon around the wound showed no entrance into the knee itself. At this time, decision was made to close the wound. The wound was closed in a layered fashion using 0 and 2-0 Vicryls. Skin was closed using running nylon suture. Sterile Xeroform, 4x4s, and Webril were used to cover the incision. The Nik wrap and cold pack were placed over this. Patient's anesthesia was reversed without difficulty. He was taken to the PACU in stable condition. He will be discharged to home when he can ambulate safely. He will hold on formal physical therapy and work on gentle range of motion over the next week. He will have Keflex p.o. for antibiotics. He will use Tylenol as needed for pain. I will see him in clinic in one week's time for a wound check. [id number]/CPS #: [id number] MTDD
== END 2018-04-13 20:23 | disposition home or self-care (01) ==
LOC: ED 17:26 → OR 20:23
PROVIDERS: ATTEND Orthopaedic Surgery Adult Reconstructive Orthopaedic Surgery
DX: T81.31XA Disruption of external operation (surgical) wound, not elsewhere classified, initial encounter (principal); Z96.651 Presence of right artificial knee joint; W01.0XXA Fall on same level from slipping, tripping and stumbling without subsequent striking against object, initial encounter; Y92.480 Sidewalk as the place of occurrence of the external cause; I10 Essential (primary) hypertension; M19.90 Unspecified osteoarthritis, unspecified site; Z85.46 Personal history of malignant neoplasm of prostate; Z87.442 Personal history of urinary calculi; Z88.1 Allergy status to other antibiotic agents; Z87.891 Personal history of nicotine dependence
CPT/HCPCS: 99212; 99282; G0463; J0690; J2250; J2400; J3010

== ENCOUNTER 2019-01-07 18:30 | Observation (INO) | payer MEDICARE, OTHER ==
--- OUTSIDE RECORDS SUMMARY | 2019-01-07 19:01 | XMS REPORT | Continuity of Care Document ---
:1930 External Reference #:[id number] Author Name Ashlee Head Care Team Providers Name Role Phone Nick Hudson MD Primary Care Physician Unavailable Payers Date Identification Numbers Payment Provider Subscriber Policy Number: [id number] Medicare Smiley Altman PayID: [id number] [address] [place] [address] Policy Number: [id number] [employer] Smiley Altman Group Number: [id number] [address] PayID: [id number] [place] [address] Advance Directives Type Date Description Status Comment Other Directive 07/16/2018 Health Care Proxy Current and Verified Problems Date Description Provider Status Onset: 08/12/2017 Essential hypertension Nick Hudson, Active Domo,FACP Onset: 01/27/2018 Localized, primary osteoarthritis Sandra Turner M.D. Active Onset: 02/04/2018 Mobitz type I incomplete Nick Hudson, Active atrioventricular block Domo,FACP Onset: 02/11/2018 Vitamin B12 deficiency (non Nick Hudson Active anaemic) Domo,FACP Onset: 03/15/2018 Arthroplasty of knee Sandra Turner M.D. Active Note: RT Onset: 08/17/2018 Neurogenic bladder Nick Hudson M.D.,FACP Active Note: self cath Onset: 08/17/2018 Eczema Nick Hudson M.D.,FACP Active Onset: 01/05/2019 Chronic kidney disease stage 3 Juliann José M.D. Active Onset: 03/15/2018 Aftercare following joint Sandra Turner M.D. Inactive replacement surgery Inactive: 07/05/2018 Family History Date Family Member(s) Observation Comments General Heart Disease Father Alcoholism Drinker, had liver disease. 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 Tobacco Use Start: Unknown Former Cigarette End: Unknown Smoker ETOH Use 08/17/2018 consumes 2 beers per week Tobacco Use Start: Unknown Patient is a former used to smoke cigars, End: Unknown smoker quit 1999 Recreational Drug Use Denies Drug Use Smoking Status Reviewed: 01/05/19 Patient is a former used to smoke cigars, smoker quit 1999 Exercise Type/Frequency Exercises regularly water/pool swimming 5x/week Allergies, Adverse Reactions, Alerts Date Description Reaction Status Severity Comments 11/08/2014 Cipro Active rash Medications Medication Date Status Form Strength Qnty SIG Indications Ordering Provider Furosemide 01/05 Active Tablets 20mg 14tab take 1 tablet R60.1 Juliann s by mouth every José, day as needed M.DEdin for edema Compression 03/08 Active Misc 2unit knee high Sandra Stockings s compression rachid Turner M.D. Cyanocobalamin 02/11 Active Solution 1000mcg/M 10uni 1 milliliters L ts intramuscular Umm Hudson, [id number] MNatanael,FACP Nifedipine ER 02/04 Active Tablets 60mg 90tab take 1 tablet ER 24HR s by mouth once D. Becca, daily M.DEdin,FACP Eucerin 08/05 Active Cream 240gm apply twice a Annika /2017 day Valentino, RESOLUTION REP Tylenol 08/05 Active Capsules 325mg 120ca 2 tablets ps every 4 hours Valentino, as needed for RESOLUTION REP pain Triamcinolone 08/05 Active Cream 0.1% 60gm apply small Nick Acetonide amount every D. Wentworth, day as needed M.Umm,FACP Losartan Active Tablets 100-25mg 90tab 1 by mouth Juliann Potassium/Dike /0000 s every day Estefanía chlorothiazide M.D. Terazosin HCL Active Capsules 2mg 90cap take 1 capsule Pearblossom /0000 s orally every Pachikara night at , M.D. bedtime Metamucil Active Wafer daily Unknown Ferosul Active Tablets 325(65Fe) Unknown mg Iron Up 09/10 Hx Liquid 15mg/0.5M 100un 5 milliliters L its by mouth twice Umm Hudson, - a day M.D.,FACP 10/28 Furosemide 09/02 Hx Tablets 20mg 30tab 1 by mouth s every day for Umm Hudson, - 5 days then M.D.,FACP 09/10 prn Keflex 04/13 Hx Capsules 500mg 30cap 1 tablet by s mouth q6 hours Johnny, - M.D. 04/27 Keflex 07 Hx Capsules 500mg 30cap 1 tablet by S81.801A s mouth q6 hours Johnny, - M.D. 04/13 Percocet 02/27 Hx Tablets 5-325mg 90tab 1-2 by mouth s every 6 hours Johnny, - as needed pain M.D. 03/07 Colace 02/27 Hx Capsules 100mg 90cap 1 tab by mouth s 2-3 times a Johnny, - day as needed M.D. 03/07 Coumadin 02/27 Hx Tablets 2mg 90tab take 1-3 tabs s by mouth at 5 Johnny, - at night as M.D. 04/03 Triamcinolone 08/05 Hx Cream 0.1% 15uni apply thin Annika Acetonide ts film twice Valentino, - daily RESOLUTION REP 08/05 Col Rite 08/05 Hx Annika /2017 Valentino, - RESOLUTION REP 08/17 Percocet 12/22 Hx Tablets 5-325mg 90tab 1-2 tabs by Sandra s mouth q4-6 as Johnny, - needed pain M.D. 03/01 Coumadin 12/22 Hx Tablets 2mg 90tab 1-3 tab by s mouth as Johnny, - directed at M.D. 02/28 5pm daily /2014 Colace 12/22 Hx Capsules 100mg 60cap 1 tab by mouth s twice a day as Johnny, - needed M.D. 05/29 constipation Naproxen Hx Tablets 250mg 1 tab by mouth Unknown /0000 twice daily - 08/05 Nifedipine ER 00 Hx Tablets 60mg 1 by mouth Unknown /0000 ER 24HR every day - 08/05 Fexofenadine Hx Tablets 180mg 1 by mouth Unknown HCL /0000 every day - 01/26 Nefedipine Hx once daily Annika /0000 Valentino, - RESOLUTION REP 02/04 Medications Administered in Office Medication Date Status Form Strength Qnty SIG Indications Ordering Provider B-12 Injection Administered Injection Juliannezra José M.D. B-12 Injection Administered Injection Nurse Visit 018 A B-12 Injection Administered Injection Nurse Visit 018 A B-12 Injection Administered Injection Nick Hudson M.D.,FACP B-12 Injection Administered Injection Nurse Visit 018 A B-12 Injection Administered Injection Nurse Visit 018 A B-12 Injection Administered Injection Nurse Visit 018 A B-12 Injection Administered Injection Nurse Visit 018 A Depomedrol Administered Injection Sandra 80MG 015 Domo Turner Immunizations CPT Code Status Date Vaccine Lot # [id number] Given 09/10/2018 Pneumococcal Conjugate Vaccine 13 Valent For [id number] Intramuscular Use 60006 Given 08/17/2018 Influenza Virus Vaccine, Quadrivalent, Split, [id number] Preservative Free [id number] Given 03/05/2009 Pneumonia Vaccine Vital Signs Date Vital Result Comment 01/05/2019 10:39am Height 66 inches 5'6" Weight 166.00 lb states 153 at home naked Heart Rate 91 /min BP Systolic Sitting 140 mmHg BP Diastolic Sitting 78 mmHg Body Temperature 97.4 F O2 % BldC Oximetry 96 % BMI (Body Mass Index) 26.8 kg/m2 10/26/2018 2:45pm Height 66 inches 5'6" Weight 157.00 lb Heart Rate 65 /min BP Systolic Sitting 114 mmHg BP Diastolic Sitting 53 mmHg Body Temperature 96.7 F O2 % BldC Oximetry 97 % BMI (Body Mass Index) 25.3 kg/m2 09/10/2018 10:45am Height 66 inches 5'6" Weight 153.00 lb Heart Rate 72 /min BP Systolic Sitting 112 mmHg BP Diastolic Sitting 50 mmHg Body Temperature 97.4 F O2 % BldC Oximetry 95 % BMI (Body Mass Index) 24.7 kg/m2 08/17/2018 3:54pm Height 66 inches 5'6" Weight 156.00 lb Heart Rate 82 /min BP Systolic Sitting 140 mmHg BP Diastolic Sitting 62 mmHg Body Temperature 97.5 F O2 % BldC Oximetry 96 % BMI (Body Mass Index) 25.2 kg/m2 08/16/2018 1:08pm Height 66 inches 5'6" Heart Rate 60 /min BP Systolic Sitting 102 mmHg BP Diastolic Sitting 56 mmHg Respiratory Rate 16 /min Body Temperature 97.9 F Pain Level 1 07/16/2018 9:56am Height 66 inches 5'6" Weight 153.00 lb Heart Rate 87 /min BP Systolic 104 mmHg BP Diastolic 52 mmHg O2 % BldC Oximetry 96 % BMI (Body Mass Index) 24.7 kg/m2 05/12/2018 10:12am Height 66 inches 5'6" Weight 150.00 lb BP Systolic 120 mmHg BP Diastolic 56 mmHg Body Temperature 97.7 F BMI (Body Mass Index) 24.2 kg/m2 04/28/2018 11:36am Height 66.25 inches 5'6.25" Weight 150.00 lb BP Systolic 134 mmHg BP Diastolic 84 mmHg Body Temperature 98.2 F BMI (Body Mass Index) 24.0 kg/m2 04/21/2018 9:52am Height 66.25 inches 5'6.25" Weight 148.00 lb Heart Rate 72 /min BP Systolic Sitting 118 mmHg BP Diastolic Sitting 68 mmHg Respiratory Rate 16 /min Body Temperature 97.0 F Pain Level 2 BMI (Body Mass Index) 23.7 kg/m2 04/05/2018 9:19am Height 66.25 inches 5'6.25" Weight 148.00 lb Heart Rate 75 /min BP Systolic 114 mmHg BP Diastolic 76 mmHg Body Temperature 96.2 F BMI (Body Mass Index) 23.7 kg/m2 03/15/2018 11:42am Height 66.25 inches 5'6.25" Weight 148.00 lb BP Systolic 124 mmHg BP Diastolic 72 mmHg Body Temperature 97.8 F Pain Level 3 BMI (Body Mass Index) 23.7 kg/m2 03/08/2018 1:05pm Height 66.25 inches 5'6.25" Weight 148.00 lb BP Systolic 110 mmHg BP Diastolic 60 mmHg Body Temperature 97.5 F Pain Level 0 BMI (Body Mass Index) 23.7 kg/m2 02/15/2018 11:37am Height 66.25 inches 5'6.25" Weight 149.00 lb Heart Rate 58 /min BP Systolic Sitting 142 mmHg LA reg cuff BP Diastolic Sitting 64 mmHg LA reg cuff Pain Level 5 BMI (Body Mass Index) 23.9 kg/m2 02/04/2018 8:39am Weight 148.00 lb Heart Rate 75 /min BP Systolic 123 mmHg BP Diastolic 65 mmHg Body Temperature 97.3 F O2 % BldC Oximetry 97 % 01/27/2018 9:42am Height 66.25 inches 5'6.25" Weight 149.00 lb Heart Rate 80 /min BP Systolic 136 mmHg BP Diastolic 70 mmHg BMI (Body Mass Index) 23.9 kg/m2 08/05/2017 11:44am Height 68 inches 5'8" Weight 149.25 lb Heart Rate 77 /min BP Systolic 128 mmHg BP Diastolic 60 mmHg Body Temperature 96.6 F O2 % BldC Oximetry 98 % BMI (Body Mass Index) 22.7 kg/m2 04/30/2015 8:06am Height 68 inches 5'8" Weight 155.00 lb Heart Rate 67 /min BP Systolic 142 mmHg BP Diastolic 78 mmHg Pain Level 0 BMI (Body Mass Index) 23.6 kg/m2 03/01/2015 11:35am Height 68 inches 5'8" Weight 155.00 lb Pain Level 1 BMI (Body Mass Index) 23.6 kg/m2 01/29/2015 11:38am Height 68 inches 5'8" Weight 155.00 lb Pain Level 1 BMI (Body Mass Index) 23.6 kg/m2 01/15/2015 8:39am Height 68 inches 5'8" Weight 155.00 lb Body Temperature 973.0 F Pain Level 2 BMI (Body Mass Index) 23.6 kg/m2 12/22/2014 10:08am Height 68 inches 5'8" Weight 155.00 lb Heart Rate 73 /min BP Systolic 160 mmHg BP Diastolic 80 mmHg BMI (Body Mass Index) 23.6 kg/m2 11/13/2014 11:14am Height 68 inches 5'8" Weight 152.00 lb BP Systolic 110 mmHg BP Diastolic 76 mmHg BMI (Body Mass Index) 23.1 kg/m2 Results Test Date Facility Test Result H/L Range Note Creatinine 10/29/[facility] Urine Collection 24 hr Clearance [address] [place] [address] [phone] Urine Total Volume 400 mL Creatinine, Serum 2.07 mg/dL High 0.51-0.95 Urine Creatinine Concentration 91.64 mg/dL Creatinine Clearance 12 mL/min Low 97-137 Microalbumin 24HR 10/29/2018 [facility] Urine Collection 24 hr Urine [address] [place] [address] [phone] Urine Total Volume 400 mL Ur Microalbumin (mg/L) 199.8 Urine Microalbumin (mg/24Hr) 79.9 mg/24hr High Less than 30 Urine Microalbumin (mcg/min) 55.5 mcg/min High Less than 20 Laboratory test 10/29/2018 [facility] Erythropoietin 10.2 mIU/ mL 2.6 - [address] [place] [address] [phone] Basic Metabolic 10/18/2018 [facility] Sodium 141 mmol/L N 135- [address] [place] [address] [phone] Potassium 4.9 mmol/L N 3.5-5.0 Co2 Carbon Dioxide 20 mmol/L Low 22-32 Glucose 100 mg/dL N 70-100 Blood Urea Nitrogen 44 mg/dL High 6-24 Creatinine 1.73 mg/dL High 0.67-1.17 BUN/Creatinine Ratio 25.4 High 8-20 Calcium 8.9 mg/dL N 8.6-10.3 Egfr Non- 37.4 >60 Egfr 45.2 >60 2 Chloride 115 mmol/L High 101-111 Anion Gap 6 mmol/L N 2-11 Retic Count 10/18/2018 [facility] Retic Count 0.6 % N 0.5-1.5 [address] [place] [address] [phone] Corrected Retic Count 0.4 % Low 0.5-1.5 Maturation Factor Retic 1.5 Retic Index 0.30 Mean Retic Volume 124.6 Immature Retic Fraction 0.45 RBC Retic Count 3.17 10^6/uL Low 4.6-6.2 Hematocrit for Retic CNT 30 % Low 42-52 Laboratory test 10/18/2018 [facility] Vitamin B12 840 pg/mL N 180-914 3 finding [address] [place] [address] [phone] Iron & Iron 10/18/2018 [facility] Iron 19 g/dL Low 50-212 Binding Capacity [address] [place] [address] [phone] Unsaturated Iron Binding < 313 g/dL Total Iron Binding Capacity 328 g/dL N 250-450 Transferrin 234 mg/dL N 203-362 % Iron Saturation 6 % Low 15-55 Occult Blood,Stool 07/30/2018 [facility] In House Occult Blood - NegX3 (3 Spec) Stool CBC Auto Diff 07/28/2018 [facility] White Blood 5.3 10^3/uL N 3.5-10.[address] [place] [address] [phone] Red Blood Count 3.16 10^6/uL Low 4.00-5.40 Hemoglobin 9.2 g/dL Low 14.0-18.0 Hematocrit 29 % Low 42-52 Mean Corpuscular Volume 92 fL N 80-94 Mean Corpuscular Hemoglobin 29 pg N 27-31 Mean Corpuscular HGB Conc 32 g/dL N 31-36 Red Cell Distribution Width 17 % High 10.5-15 Platelet Count 187 10^3/uL N 150-450 Mean Platelet Volume 8.3 um3 N 7.4-10.4 Abs Neutrophils 3.6 10^3/uL N 1.5-7.7 Abs Lymphocytes 1.0 10^3/uL N 1.0-4.8 Abs Monocytes 0.6 10^3/uL N 0-0.8 Abs Eosinophils 0.1 10^3/uL N 0-0.6 Abs Basophils 0 10^3/uL N 0-0.2 Abs Nucleated RBC 0 10^3/uL Granulocyte % 67.8 % N 38-83 Lymphocyte % 19.7 % Low 25-47 Monocyte % 10.4 % High 0-7 Eosinophil % 1.4 % N 0-6 Basophil % 0.7 % N 0-2 Nucleated Red Blood Cells % 0 Comp Metabolic Panel 07/28/2018 [facility] Sodium 141 mmol/L N 135-145 [address] [place] [address] [phone] Potassium 5.0 mmol/L N 3.5-5.0 Co2 Carbon Dioxide 22 mmol/L N 22-32 Glucose 104 mg/dL High 70-100 Blood Urea Nitrogen 43 mg/dL High 6-24 Creatinine 1.55 mg/dL High 0.67-1.17 BUN/Creatinine Ratio 27.7 High 8-20 Calcium 8.7 mg/dL N 8.6-10.3 Total Protein 6.8 g/dL N 6.4-8.9 Albumin 3.8 g/dL N 3.2-5.2 Globulin 3.0 g/dL N 2-4 Albumin/Globulin Ratio 1.3 N 1-3 Total Bilirubin 0.40 mg/dL N 0.2-1.0 Alkaline Phosphatase 90 U/L N 34-104 Alt 14 U/L N 7-52 Ast 17 U/L N 13-39 Egfr Non- 42.4 >60 Egfr 51.3 >60 4 Chloride 115 mmol/L High 101-111 Anion Gap 4 mmol/L N 2-11 Laboratory test 07/28/2018 [facility] Lipase 43 U/L N 11.0- 82.0 finding [address] [place] [address] [phone] Inr/Protime 03/22/2018 [facility] Inr 1.53 High 0.77-1.02 5 [address] [place] [address] [phone] Inr/Protime 03/18/2018 [facility] Inr 1.91 High 0.77-1.02 6 [address] [place] [address] [phone] Inr/Protime 03/15/2018 [facility] Inr 2.53 High 0.77-1.[address] [place] [address] [phone] Type & Screen 02/15/2018 [facility] Patient A Positive [address] Blood Type [place], [place] [id number] [phone] Antibody Screen NEGATIVE Urinalysis Profile 02/15/2018 [facility] Urine Color Yellow [address] [place] [address] [phone] Urine Appearance Clear Urine Specific [place] 1.012 N 1.010-1.030 Urine pH 5.0 N 5-9 Urine Urobilinogen Negative Negative Urine Ketones Negative Negative Urine Protein 1+(30 mg/dL) Abnormal Negative Urine Leukocytes Negative Negative Urine Blood 1+ Abnormal Negative Urine Nitrite Negative Negative Urine Bilirubin Negative Negative Urine Glucose Negative Negative Urine White Blood Cell Trace(0-5/hpf) Absent Urine Red Blood Cell Trace(0-2/hpf) Absent Urine Bacteria Absent Absent Urine Squamous Epithelial Cell Present Abnormal Absent Inr/Protime 02/15/2018 [facility] Inr 0.92 N 0.77-1.[address] [place] [address] [phone] Laboratory test 02/15/2018 [facility] Partial 34.6 N 26.0- 36.[address] [address] Time PTT [phone] Urine Culture And 02/15/2018 [facility] Urine SEE RESULT [address] Culture BELOW [place], [place] [id number] [phone] Laboratory test 02/09/2018 [facility] Vitamin B12 178 pg/mL Low 180-914 [address] [place] [address] [phone] CBC Auto Diff 02/08/2018 [facility] White Blood 4.5 10^3/uL N 3.5-10.[address] [place] [address] [phone] Red Blood Count 3.98 10^6/uL Low 4.0-5.4 Hemoglobin 12.7 g/dL Low 14.0-18.0 Hematocrit 39 % Low 42-52 Mean Corpuscular Volume 97 fL High 80-94 Mean Corpuscular Hemoglobin 32 pg High 27-31 Mean Corpuscular HGB Conc 33 g/dL N 31-36 Red Cell Distribution Width 14 % N 10.5-15 Platelet Count 152 10^3/uL N 150-450 Mean Platelet Volume 9 um3 N 7.4-10.4 Abs Neutrophils 3.1 10^3/uL N 1.5-7.7 Abs Lymphocytes 0.9 10^3/uL Low 1.0-4.8 Abs Monocytes 0.4 10^3/uL N 0-0.8 Abs Eosinophils 0.1 10^3/uL N 0-0.6 Abs Basophils 0 10^3/uL N 0-0.2 Abs Nucleated RBC 0 10^3/uL Granulocyte % 67.2 % N 38-83 Lymphocyte % 20.6 % Low 25-47 Monocyte % 9.8 % High 0-7 Eosinophil % 1.7 % N 0-6 Basophil % 0.7 % N 0-2 Nucleated Red Blood Cells % 0 Comp Metabolic Panel 02/08/2018 [facility] Sodium 140 mmol/L N 133-[address] [place] [address] [phone] Potassium 4.4 mmol/L N 3.5-5.0 Co2 Carbon Dioxide 21 mmol/L Low 22-32 Glucose 101 mg/dL High 70-100 Blood Urea Nitrogen 37 mg/dL High 6-24 Creatinine 1.80 mg/dL High 0.67-1.17 BUN/Creatinine Ratio 20.6 High 8-20 Calcium 8.8 mg/dL N 8.6-10.3 Total Protein 6.4 g/dL N 6.4-8.9 Albumin 3.7 g/dL N 3.2-5.2 Globulin 2.7 g/dL N 2-4 Albumin/Globulin Ratio 1.4 N 1-3 Total Bilirubin 0.50 mg/dL N 0.2-1.0 Alkaline Phosphatase 56 U/L N 34-104 Alt 10 U/L N 7-52 Ast 15 U/L N 13-39 Egfr Non- 35.8 >60 Egfr 46.0 >60 10 Chloride 113 mmol/L High 101-111 Anion Gap 6 mmol/L N 2-11 Basic Metabolic Panel 01/18/2018 [facility] Sodium 140 mmol/L N 133-[address] [place] [address] [phone] Potassium 4.5 mmol/L N 3.5-5.0 Chloride 111 mmol/L N 101-111 Co2 Carbon Dioxide 25 mmol/L N 22-32 Anion Gap 4 mmol/L N 2-11 Glucose 95 mg/dL N 70-100 Blood Urea Nitrogen 36 mg/dL High 6-24 Creatinine 1.64 mg/dL High 0.67-1.17 BUN/Creatinine Ratio 22.0 High 8-20 Calcium 9.3 mg/dL N 8.6-10.3 Egfr Non- 39.8 >60 Egfr 51.2 >60 11 Basic Metabolic Panel 01/08/2015 [facility] Sodium 138 mmol/L N 133-145 [address] [place] [address] [phone] Potassium 4.6 mmol/L N 3.5-5.0 Chloride 104 mmol/L N 101-111 Co2 Carbon Dioxide 26 mmol/L N 22-32 Anion Gap 8 mmol/L N 2-11 Glucose 105 mg/dL High 70-100 Blood Urea Nitrogen 45 mg/dL High 6-24 Creatinine 2.17 mg/dL High 0.67-1.17 BUN/Creatinine Ratio 20.7 High 8-20 Calcium 8.5 mg/dL Low 8.6-10.3 Egfr Non- 29.0 N >60 Egfr 37.4 N >60 12 Inr/Protime 01/08/2015 [facility] Inr 2.29 High 0.78-1.07 13 [address] [place] [address] [phone] Type & Screen 12/22/2014 [facility] Patient A Positive N 14 [address] [facility] [place] [address] [phone] Antibody Screen NEGATIVE N Basic Metabolic Panel 12/22/2014 [facility] Sodium 141 mmol/L N 133-145 [address] [place] [address] [phone] Potassium 4.2 mmol/L N 3.5-5.0 Chloride 110 mmol/L N 101-111 Co2 Carbon Dioxide 26 mmol/L N 22-32 Anion Gap 5 mmol/L N 2-11 Glucose 84 mg/dL N 70-100 Blood Urea Nitrogen 37 mg/dL High 6-24 Creatinine 1.49 mg/dL High 0.67-1.17 BUN/Creatinine Ratio 24.8 High 8-20 Calcium 9.3 mg/dL N 8.6-10.3 Egfr Non- 44.8 N >60 Egfr 57.6 N >60 15 CBC No Diff 12/22/2014 [facility] White Blood 6.3 10^3/uL N 4.8-10.[address] [place] [address] [phone] Red Blood Count 4.57 10^6/uL N 4.0-5.4 Hemoglobin 14.6 g/dL N 14.0-18.0 Hematocrit 44 % N 42-52 Mean Corpuscular Volume 97 fL High 80-94 Mean Corpuscular Hemoglobin 32 pg High 27-31 Mean Corpuscular HGB Conc 33 g/dL N 31-36 Red Cell Distribution Width 14 % N 10.5-15 Platelet Count 171 10^3/uL N 150-450 Mean Platelet Volume 10 um3 N 7.4-10.4 Urinalysis Profile 12/22/2014 [facility] Urine Color Yellow N [address] [place] [address] [phone] Urine Appearance Clear N Urine Specific [place] 1.017 N 1.010-1.030 Urine pH 5.0 N 5-9 Urine Urobilinogen Negative N Negative Urine Ketones Negative N Negative Urine Protein 1+(30 mg/dL) Abnormal Negative Urine Leukocytes Negative N Negative Urine Blood Negative N Negative * * Abnormal Negative 16 Urine Nitrite Negative N Negative Urine Bilirubin Negative N Negative Urine Glucose Negative N Negative Urine White Blood Cell Trace(0-5/hpf) N Absent Urine Red Blood Cell Trace(0-2/hpf) N Absent Urine Bacteria Absent N Absent CBC Auto Diff 12/12/2014 [facility] White Blood 4.8 10^3/uL N 4.8-10.[address] [place] [address] [phone] Red Blood Count 4.35 10^6/uL N 4.0-5.4 Hemoglobin 14.0 g/dL N 14.0-18.0 Hematocrit 43 % N 42-52 Mean Corpuscular Volume 98 fL High 80-94 Mean Corpuscular Hemoglobin 32 pg High 27-31 Mean Corpuscular HGB Conc 33 g/dL N 31-36 Red Cell Distribution Width 15 % N 10.5-15 Platelet Count 156 10^3/uL N 150-450 Mean Platelet Volume 10 um3 N 7.4-10.4 Abs Neutrophils 2.9 10^3/uL N 1.5-7.7 Abs Lymphocytes 1.2 10^3/uL N 1.0-4.8 Abs Monocytes 0.4 10^3/uL N 0-0.8 Abs Eosinophils 0.1 10^3/uL N 0-0.6 Abs Basophils 0 10^3/uL N 0-0.2 Abs Nucleated RBC 0 10^3/uL N Granulocyte % 61.9 % N 38-83 Lymphocyte % 26.2 % N 25-47 Monocyte % 8.6 % N 1-9 Eosinophil % 2.4 % N 0-6 Basophil % 0.9 % N 0-2 Nucleated Red Blood Cells % 0.1 N Comp Metabolic Panel 12/12/2014 [facility] Sodium 141 mmol/L N 133-145 [address] [facility] [place] [address] [phone] Potassium 4.1 mmol/L N 3.5-5.0 Chloride 108 mmol/L N 101-111 Co2 Carbon Dioxide 29 mmol/L N 22-32 Anion Gap 4 mmol/L N 2-11 Glucose 93 mg/dL N 70-100 Blood Urea Nitrogen 30 mg/dL High 6-24 Creatinine 1.57 mg/dL High 0.67-1.17 BUN/Creatinine Ratio 19.1 N 8-20 Calcium 8.9 mg/dL N 8.6-10.3 Total Protein 6.3 g/dL Low 6.4-8.9 Albumin 4.0 g/dL N 3.2-5.2 Globulin 2.3 g/dL N 2-4 Albumin/Globulin Ratio 1.7 N 1-3 Total Bilirubin 0.60 mg/dL N 0.2-1.0 Alkaline Phosphatase 48 U/L N 34-104 Alt 11 U/L N 7-52 Ast 18 U/L N 13-39 Egfr Non- 42.2 N >60 Egfr 54.3 N >60 17 1 Test Performed by: [facility] [address] [place] [address] 2 Because ethnic data is not always [...] 5 Kidney failure <15 (or dialysis) 3 Normal Range 180 to 914 Indeterminate [...] 5 Kidney failure <15 (or dialysis) 5 CALL STAT RESULTS [phone] FAX STAT RESULTS [phone] PLEASE CALL STAT RESULT TO [phone] PLEASE FAX STAT RESULT TO [phone] 7 PAIN IN RIGHT KNEE, EFFUSION, RIGHT KNEE, UNILATER 8 SEE RESULT BELOW Name: SMILEY ALTMAN : [address]: Sandra Turner MD Acct: [id number] Unit: [id number] AGE: 87 Location: PAT Re02/15/18 SEX: M Status: REG REF SPEC: [id number] DANDRE: 02/15/18-[address] [facility] [address]: Sandra Turner MD REQ: [id number] RECD: 02/15/18 STATUS: COMP LILLIEHR DR: Annika Peterson MD _ SOURCE: URINE SPDESC: ORDERED: Urine Culture QUERIES: Urine Source: Clean Catch Procedure Result Reported Site Urine Culture Final 02/16/18- 1205 ML No growth of clinically significant organisms * ML - Main Lab . END OF REPORT DEPARTMENT OF PATHOLOGY, [address] [place] [address] Soren Brock M.D. Director [facility] # [id number] Normal Range 180 to 914 Indeterminate Range 145 to 180 Deficient Range <145 10 Because ethnic data is not always [...] 15-29 5 Kidney failure <15 (or dialysis) 12 Because ethnic data is not always [...] 5 Kidney failure <15 (or dialysis) 13 Please note: Effective December 27, 2014, the reference value for this test has changed due to the validation and activation of a new reagent lot number. 14 AA SURGERY 01/02/15 15 Because ethnic data is not always readily [...] 15-29 5 Kidney failure <15 (or dialysis) 16 *Ascorbic acid is present which may interfere with detection of blood. 17 Because ethnic data is not always readily [...] Kidney failure <15 (or dialysis) Procedures Date Code Description Status 01/05/2019 47909 Admin Of Inj Completed 10/22/2018 08545 Admin Of Inj Completed 09/17/2018 82525 Admin Of Inj Completed 08/17/2018 07989 Admin Of Inj Completed 06/04/2018 24578 Admin Of Inj Completed 05/03/2018 68336 Admin Of Inj Completed 04/13/2018 29114 Repair Immediate Wound 7.6-12.5CM Completed Scalp/Axillae/Trunk/Extremities 04/01/2018 89815 Admin Of Inj Completed 02/27/2018 02280 EKG, Interpretation Only Completed 02/26/2018 18098 EKG, Interpretation Only Completed 02/25/2018 85160 TKR Total Knee Replacement Completed 02/25/2018 29030 TKR Total Knee Replacement Completed 02/11/2018 39422 Admin Of Inj Completed 02/04/2018 37404 EKG Tracing & Interpretation Completed 04/30/2015 91453 Inject/Drain Joint/Bursa Major W/O US Completed 01/02/2015 95677 TKR Total Knee Replacement Completed 01/02/2015 31325 TKR Total Knee Replacement Completed 11/13/2014 42451 Xray Knee 3 Views Completed 08/30/2012 [id number] Colonoscopy Completed 12/28/2006 77572 EKG, Interpretation Only Completed 05/14/2005 [id number] Colonoscopy Completed Encounters Type Date Location Provider Dx Diagnosis Office Visit 10/26/2018 2:20p [facility] Internal Medicine Nick Hudson, R05 Cari Calzada M.D.,FACP N18.2 Chronic kidney disease, stage 2 (mild) Office Visit 09/10/2018 11:00a [facility] Internal Nick Salomon D50.8 Other iron Medicine - Domo Hudson,FACP deficiency [address] anemias R60.1 Generalized edema D51.9 Vitamin B12 deficiency anemia, unspecified Z23 Encounter for immunization Office Visit 08/17/2018 4:00p [facility] Internal Nick Salomon D51.9 Vitamin B12 Maldonado Hudson M.D.,FACP deficiency [place] anemia, unspecified R19.7 Diarrhea, unspecified I10 Essential (primary) hypertension Z23 Encounter for immunization Office Visit 08/16/2018 1:00p Orthopedic Sandra Turner, M25.461 Effusion, right Services Of Domo knee C.M.AEdin Z96.651 Presence of right artificial knee joint Z96.652 Presence of left artificial knee joint M25.561 Pain in right knee Office Visit 07/16/2018 10:00a [facility] Internal Marlys R19.7 Diarrhea, Medicine - Marker, RPA-C unspecified [place] K59.00 Constipation, unspecified Office Visit 02/27/2018 3:05p [facility] Russell I10 Essential Assoc,pc KHRIS Amos (primary) Hospitalists hypertension N35.9 Urethral stricture, unspecified N18.3 Chronic kidney disease, stage 3 (moderate) Z96.651 Presence of right artificial knee joint Office Visit 02/26/2018 3:04p [facility] Russell N18.3 Chronic kidney Assoc,pc KHRIS Amos disease, stage 3 Hospitalists (moderate) I10 Essential (primary) hypertension N35.9 Urethral stricture, unspecified Z96.651 Presence of right artificial knee joint Office Visit 02/25/2018 3:03p [facility] Maye Negron, I10 Essential ( primary) Assoc,pc N.P. hypertension Hospitalists N18.3 Chronic kidney disease, stage 3 (moderate) N35.9 Urethral stricture, unspecified Z96.651 Presence of right artificial knee joint Office Visit 02/04/2018 [facility] Internal Annika Z01.818 Encounter for other 8:40a Maldonado Valentino NP preprocedural [address] examination M25.561 Pain in right knee M17.11 Unilateral primary osteoarthritis, right knee Office Visit 01/27/2018 Orthopedic Sandra M17.11 Unilateral primary 9:00a Services Of Domo Turner osteoarthritis, right C.M.A. 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 Failure, Hospitalists Unspecified V43.65 Knee Replacement By Other Means 401.9 Hypertension Unspec Office Visit 01/04/2015 [facility] Noemy 584.9 Acute Kidney 10:48a Assoc,pc Rashel, RESOLUTION REP Failure, Hospitalists Unspecified V43.65 Knee Replacement By Other Means 401.9 Hypertension Unspec Office Visit 11/13/2014 11:00a Orthopedic Sandra 715.16 Osteoarthrosis Services Of Domo Turner Localized [facility] C.M.AEdin Leg Plan of Treatment Future Appointment(s):01/12/2019 10:50 am - Juliann José M.D. at [facility] Internal Medicine Rzljnhxes94/06/2019 1:00 pm - Brooke Chen MD at [facility] Ssvuslkmyv31/12/2019 1:00 pm - Nick Hudson M.D.,FACP at [facility] Internal Medicine - Psypicjfg94/06/2019 - Juliann José M.D.R60.1 Generalized edemaNew Medication:Furosemide 20 mg - take 1 tablet by mouth every day as needed for edemaNew Therapy:Physical TherapyComments:your swelling is due to a combination of factors , we discussed stop the gatorade, reducing water intake to less than 2000 ml per day, elevate legs as much as possible, I have prescribed you lasix every other day to help reduce the swelling,compression stockings are a good idea , we will monitor the kidney function in a week with the new diuretic , you should call Dr. Cox's office for the kidneyevaluation We also discussed to prevent skin breakdown on the legs, use Eucerin creme which helps with that and with gradual reduction of swelling , it should improve tooFollow up:1 week with me , labs bmntpP73.3 Chronic kidney disease, stage 3 (moderate)D51.9 Vitamin B12 deficiency anemia, ieuzudmlkylI34.8 Other iron deficiency olkndgvE42.651 Presence of right artificial knee jointNew Therapy:Occupational Therapy
[2019-01-07 21:57] LABS: ABS Basophils 0 10^3/ul (0-0.2); ABS Eosinophils 0 10^3/ul (0-0.6); ABS Lymphocytes 0.6 10^3/ul (1.0-4.8); ABS Monocytes 0.8 10^3/ul (0-0.8); ABS Neutrophils 5.9 10^3/ul (1.5-7.7); ABS Nucleated RBC 0 10^3/ul; Eosinophil % 0.2 %; Hematocrit 31 % (42-52); Hemoglobin 10.3 g/dl (14.0-18.0); Lymphocyte % 8.6 %; Mean Corpuscular HGB Conc 33 g/dl (31-36); Mean Corpuscular Hemoglobin 30 pg (27-31); Mean Corpuscular Volume 92 fL (80-94); Mean Platelet Volume 8.4 fL (7.4-10.4); Nucleated Red Blood Cells % 0; Platelet Count 175 10^3/ul (150-450); Red Blood Count 3.38 10^6/ul (4.00-5.40); Red Cell Distribution Width 17 % (10.5-15); White Blood Count 7.3 10^3/ul (3.5-10.8)
[2019-01-07 22:11] LABS: Activated Partial Thrombo Time 34.8 seconds (26.0-36.3); INR 1.03 (0.77-1.02)
[2019-01-07 22:12] LABS: Albumin 3.7 g/dL (3.2-5.2); Albumin/Globulin Ratio 1.1 (1-3); BUN/Creatinine Ratio 25.7 (8-20); C Reactive Protein 29.53 mg/L (<8.01); Calcium 9.1 mg/dL (8.6-10.3); EGFR African American 42.4 (>60); Globulin 3.3 g/dL (2-4); Phosphorus 3.3 mg/dL (2.5-5.0); Potassium 4.7 mmol/L (3.5-5.0); Total Bilirubin 0.6 mg/dL (0.2-1.0)
[2019-01-07 22:16] LABS: CKMB ng/mL 14.2 ng/mL (0.6-6.3)
[2019-01-08] MEDS ORDERED: Ondansetron INJ* 2 MG/ML VIAL IV PRN (00:20)
[2019-01-08] MEDS ORDERED: Acetaminophen TAB* 325 MG PO PRN (00:20)
[2019-01-08] MEDS ORDERED: NS 0.9% 1000 ML** 1,000 ML IV SCH (00:30)
[2019-01-08] MEDS ORDERED: Cyanocobalamin INJ * 1,000 MCG/ML VIAL 1 ML VIAL IM SCH (01:00)
--- NOTE | 2019-01-08 02:00 | ED ---
Adult Trauma - HPI Summary HPI Summary: Patient complains of laceration to posterior head, skin tear to right elbow status post fall today. Patient states he was going up stairs and not quite sure what happened but he ended up falling backwards and hitting his head on the concrete floor in garage. Patient states he was on the ground for 2 hours and unable to get up. She states she crawled over to outdoor guide on the wall and was able to open the garage door, and was found by neighbor. Fall was unwitnessed. Patient denies known LOC, any active pain or symptoms including HALLMAN , lightheadedness, vision change, N/V, AMS, neck pain, back pain, hip pain, abdominal pain, work of breathing, CP, SOB, N/V/D, abdominal pain, change in urine, change in BM.. Medical history is A. 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 No anti-coag. - History of Current Complaint Chief Complaint: EDGeneral Stated Complaint: FALL Time Seen by Provider: 01/07/19 21:00 Hx Obtained From: Patient, Family/[employer] Mechanism of Injury: Fall Ambulatory at the Scene: No Loss of Consciousness: no loss of consciousness Onset/Duration: Started Hours Ago Current Severity: None Pain Intensity: 0 Pain Scale Used: 0-10 Numeric Aggravating Factor(s): Nothing Alleviating Factor(s): Nothing Associated Signs & Symptoms: Positive: Negative - Additional Pertinent History Primary Care Physician: [id number] - Allergy/Home Medications Allergies/Adverse Reactions: Allergies Allergy/AdvReac Type Severity Reaction Status Date / Time ciprofloxacin [From Cipro] Allergy Hives Verified 01/07/19 18:48 Home Medications: Home Medications Furosemide TAB* [Lasix TAB*] 20 mg PO EVERY OTHER DAY 01/08/19 [History Confirmed 01/08/19] PMH/Surg Hx/FS Hx/Imm Hx Endocrine/Hematology History: Denies: Hx Diabetes, Hx Thyroid Disease Cardiovascular History: Reports: Hx Hypertension Respiratory History: Denies: Hx Asthma, Hx Chronic Obstructive Pulmonary Disease (COPD) GI History: Denies: Hx Ulcer History: Reports: Hx Kidney Stones, Other Problems/Disorders - urethral stricture Musculoskeletal History: Reports: Hx Arthritis - right knee Sensory History: Reports: Hx Contacts or Glasses, Hx Hearing Aid - left ear Opthamlomology History: Reports: Hx Contacts or Glasses - Cancer History Cancer Type, Location and Year: Prostate Cancer Hx Chemotherapy: No - radiation - Surgical History Surgery Procedure, Year, and Place: Kidney stone removal, lithotripsy x3. Hx Anesthesia Reactions: No Infectious Disease History: No Infectious Disease History: Denies: Hx Clostridium Difficile, Hx Hepatitis, Hx Human Immunodeficiency Virus (HIV), Hx of Known/Suspected MRSA, Traveled Outside the [place] in Last 30 Days - Family History Known Family History: Positive: Hypertension - Social History Alcohol Use: Occasionally Substance Use Type: Reports: None Smoking Status (MU): Never Smoked Tobacco Amount Used/How Often: occassional cigar or pipe Review of Systems Constitutional: Negative Eyes: Negative ENT: Negative Cardiovascular: Negative Respiratory: Negative Gastrointestinal: Negative Genitourinary: Negative Musculoskeletal: Negative Skin: Other Neurological: Negative Psychological: Normal All Other Systems Reviewed And Are Negative: Yes Physical Exam - Summary Physical Exam Summary: Laceration to posterior head. No pain with flexion or extension of all 4 extremities including hip joints. No pain with palpation of chest, abdomen, back, neck, face. No oral trauma noted. Neuro exam normal. Triage Information Reviewed: Yes Vital Signs On Initial Exam: Initial Vitals Temp Pulse Resp BP Pulse Ox 96 F 90 17 130/67 95 01/07/19 18:44 01/07/19 18:44 01/07/19 18:44 01/07/19 18:44 01/07/19 18:44 Vital Signs Reviewed: Yes Appearance: Positive: Well-Appearing Skin: Positive: Warm Head/Face: Positive: Normal Head/Face Inspection Eyes: Positive: Normal ENT: Positive: Normal ENT inspection Dental: Negative: Dental Fracture @, Bleeding Neck: Positive: Supple Respiratory/Lung Sounds: Positive: Clear to Auscultation Cardiovascular: Positive: Normal Abdomen Description: Positive: Nontender Musculoskeletal: Positive: Normal Neurological: Positive: Normal Psychiatric: Positive: Normal AVPU Assessment: Alert - Long Coma Scale Best Eye Response: 4 - Spontaneous Best Motor Response: 6 - Obeys Commands Best Verbal Response: 5 - Oriented Coma Scale Total: 15 Diagnostics - Vital Signs Vital Signs Temp Pulse Resp BP Pulse Ox 01/08/19 01:20 97.8 F 82 20 135/68 96 01/08/19 01:00 80 21 96 01/08/19 00:54 88 41 96 01/08/19 00:43 135/81 01/08/19 00:13 146/68 01/07/19 23:42 148/79 01/07/19 23:00 24 01/07/19 22:45 97.7 F 89 18 137/77 96 01/07/19 22:42 85 20 137/77 96 01/07/19 22:21 85 15 95 01/07/19 22:00 87 15 92 01/07/19 21:29 85 21 97 01/07/19 18:44 96 F 90 17 130/67 95 - Laboratory Lab Results: Lab Results 01/07/19 01/07/19 01/07/19 Range/Units 21:42 21:42 21:42 WBC 7.3 (3.5-10.8) 10^3/ul RBC 3.38 L (4.00-5.40) 10^6/ul Hgb 10.3 L (14.0-18.0) g/dl Hct 31 L (42-52) % MCV 92 (80-94) fL MCH 30 (27-31) pg MCHC 33 (31-36) g/dl RDW 17 H (10.5-15) % Plt Count 175 (150-450) 10^3/ul MPV 8.4 (7.4-10.4) fL Neut % (Auto) 80.5 % Lymph % (Auto) 8.6 % [place] % (Auto) 10.4 % Eos % (Auto) 0.2 % Baso % (Auto) 0.3 % Absolute Neuts (auto) 5.9 (1.5-7.7) 10^3/ul Absolute Lymphs (auto) 0.6 L (1.0-4.8) 10^3/ul Absolute Monos (auto) 0.8 (0-0.8) 10^3/ul Absolute Eos (auto) 0 (0-0.6) 10^3/ul Absolute Basos (auto) 0 (0-0.2) 10^3/ul Absolute Nucleated RBC 0 10^3/ul Nucleated RBC % 0 INR (Anticoag Therapy) 1.03 H (0.77-1.02) APTT 34.8 (26.0-36.3) seconds Sodium 140 (135-145) mmol/L Potassium 4.7 (3.5-5.0) mmol/L Chloride 112 H (101-111) mmol/L Carbon Dioxide 22 (22-32) mmol/L Anion Gap 6 (2-11) mmol/L BUN 47 H (6-24) mg/dL Creatinine 1.83 H (0.67-1.17) mg/dL Est GFR ( Amer) 42.4 (>60) Est GFR (Non-Af Amer) 35.0 (>60) BUN/Creatinine Ratio 25.7 H (8-20) Glucose 97 (70-100) mg/dL Calcium 9.1 (8.6-10.3) mg/dL Phosphorus 3.3 (2.5-5.0) mg/dL Magnesium 2.0 (1.9-2.7) mg/dL Total Bilirubin 0.60 (0.2-1.0) mg/dL AST 22 (13-39) U/L ALT 14 (7-52) U/L Alkaline Phosphatase 97 (34-104) U/L Total Creatine Kinase 251 H (10-223) U/L CK-MB (CK-2) 14.2 H (0.6-6.3) ng/mL C-Reactive Protein 29.53 H (<8.01) mg/L B-Natriuretic Peptide (<=100) pg/mL Total Protein 7.0 (6.4-8.9) g/dL Albumin 3.7 (3.2-5.2) g/dL Globulin 3.3 (2-4) g/dL Albumin/Globulin Ratio 1.1 (1-3) 01/07/19 Range/Units 21:42 WBC (3.5-10.8) 10^3/ul RBC (4.00-5.40) 10^6/ul Hgb (14.0-18.0) g/dl Hct (42-52) % MCV (80-94) fL MCH (27-31) pg MCHC (31-36) g/dl RDW (10.5-15) % Plt Count (150-450) 10^3/ul MPV (7.4-10.4) fL Neut % (Auto) % Lymph % (Auto) % [place] % (Auto) % Eos % (Auto) % Baso % (Auto) % Absolute Neuts (auto) (1.5-7.7) 10^3/ul Absolute Lymphs (auto) (1.0-4.8) 10^3/ul Absolute Monos (auto) (0-0.8) 10^3/ul Absolute Eos (auto) (0-0.6) 10^3/ul Absolute Basos (auto) (0-0.2) 10^3/ul Absolute Nucleated RBC 10^3/ul Nucleated RBC % INR (Anticoag Therapy) (0.77-1.02) APTT (26.0-36.3) seconds Sodium (135-145) mmol/L Potassium (3.5-5.0) mmol/L Chloride (101-111) mmol/L Carbon Dioxide (22-32) mmol/L Anion Gap (2-11) mmol/L BUN (6-24) mg/dL Creatinine (0.67-1.17) mg/dL Est GFR ( Amer) (>60) Est GFR (Non-Af Amer) (>60) BUN/Creatinine Ratio (8-20) Glucose (70-100) mg/dL Calcium (8.6-10.3) mg/dL Phosphorus (2.5-5.0) mg/dL Magnesium (1.9-2.7) mg/dL Total Bilirubin (0.2-1.0) mg/dL AST (13-39) U/L ALT (7-52) U/L Alkaline Phosphatase (34-104) U/L Total Creatine Kinase (10-223) U/L CK-MB (CK-2) (0.6-6.3) ng/mL C-Reactive Protein (<8.01) mg/L B-Natriuretic Peptide > 1300 H (<=100) pg/mL Total Protein (6.4-8.9) g/dL Albumin (3.2-5.2) g/dL Globulin (2-4) g/dL Albumin/Globulin Ratio (1-3) Result Diagrams: 01/07/19 21:42 01/07/19 21:42 Lab Statement: Any lab studies that have been ordered have been reviewed, and results considered in the medical decision making process. Adult Trauma Course/Dx - Course Course Of Treatment: Patient complains of laceration to posterior head, skin tear to right elbow status post fall today. Patient states he was going up stairs and not quite sure what happened but he ended up falling backwards and hitting his head on the concrete floor in garage. Patient states he was on the ground for 2 hours and unable to get up. She states she crawled over to outdoor guide on the wall and was able to open the garage door, and was found by neighbor. Fall was unwitnessed. Patient denies known LOC, any active pain or symptoms including HALLMAN, lightheadedness, vision change, N/V, AMS, neck pain, back pain, hip pain, abdominal pain, work of breathing, CP, SOB, N/V/D, abdominal pain, change in urine, change in BM.. Medical history is A. 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 No anti-coag. Physical exam:Laceration to posterior head. No pain with flexion or extension of all 4 extremities including hip joints. No pain with palpation of chest, abdomen, back, neck, face. No oral trauma noted. Neuro exam normal. The patient was able to sit up and move to commode and support himself, stand up from commode, bend over and pull up his pants on his own. Vital signs within normal limits. CK 251. CRP 29. Labs otherwise at patient baseline. CT brain positive for acute on chronic bifrontal subdural hematomas. Discussed patient with neurology Dr. Concepcion who recommended admission and observation. Admitted to hospitalist. - Diagnoses Provider Diagnoses: Fall, Acute on chronic intracranial subdural hematoma Discharge - Sign-Out/Discharge Documenting (check all that apply): Patient Departure Patient Received Moderate/Deep Sedation with Procedure: No - Discharge Plan Condition: Fair Disposition: ADMITTED TO [facility] - Billing Disposition and Condition Condition: FAIR Disposition: Admitted to [facility]
--- NOTE | 2019-01-08 02:18 | HP ---
HISTORY AND PHYSICAL: DATE OF ADMISSION: 01/08/19 CHIEF COMPLAINT: Fall. HISTORY OF PRESENT ILLNESS: This is an 88-year-old male with past medical history of hypertension, atrial fibrillation, prostate cancer, status post treatment, who now presents to the emergency room after he sustained a fall. The patient reports that he had a fall this afternoon, the fall was associated with head trauma. There was no loss of consciousness. The patient reports that the fall was not associated with any lightheadedness or chest pain. He slipped on the stairs and the stairs does not have any hand railing, so he lost his balance and sustained a fall. Since the fall, he does not have any headaches or any weakness or numbness. He noted that he was in the garage for about 10 minutes after the fall before he was found by family. There is a laceration at the back of his head and a skin tear. Otherwise, he does not have any other injuries. In the emergency room, the patient was seen and evaluated, CT of the head was done which showed acute on chronic subdural hematoma. Subsequently, the emergency room contacted Dr. Concepcion, Neurosurgery, who reviewed the case via the phone and deemed the patient to be not a candidate for acute intervention. Subsequently, the hospitalist service was called for admission. Currently, the patient does not have any headaches. PAST MEDICAL HISTORY: 1. Atrial fibrillation. 2. Hypertension. 3. Prostate cancer. 4. Lymphedema of the lower extremities. PAST SURGICAL HISTORY: 1. Knee replacement x2. 2. Kidney stone. MEDICATIONS: The patient's home medications include: 1. Furosemide 20 mg every other day. 2. Triamcinolone cream 1 application topically b.i.d. 3. Terazosin 2 mg at bedtime. 4. Nifedipine 60 mg in the morning. 5. Losartan/HCTZ 100/25 one tab daily. 6. Cyanocobalamin 1000 mcg monthly. ALLERGIES: Include CIPROFLOXACIN. FAMILY HISTORY: Mother had heart problems, father of elderly age. SOCIAL HISTORY: The patient lives at home alone, occasionally will drink beer, no smoking. Healthcare proxy is the patient's daughterCourtney, phone number is . REVIEW OF SYSTEMS: No fevers, no chills, no chest pain, no shortness of breath , no palpitations, no change in his vision or hearing. No sore throat, no shortness of breath, no calf, no headaches, no focal weakness or numbness. No abdominal pain, no nausea, no vomiting, no diarrhea, no back pain, no urinary or rectal incontinence. PHYSICAL EXAMINATION GENERAL: This is an elderly male, well-developed, lying in an ER stretcher, in no acute distress. VITAL SIGNS: Blood pressure is 133/77, heart rate of 89, respiratory rate of 18 , saturation of 96% on room air, temperature is 97.7 Fahrenheit. HEENT: Pupils are equal, round, and reactive to light. Normocephalic; however , there is a laceration noted at the occipital region. There is no oropharyngeal erythema. LUNGS: There is no tachypnea, no use of accessory muscles. Lungs are clear to auscultation bilaterally. HEART: There is no chest wall tenderness. Irregularly regular. No murmurs. ABDOMEN: Bowel sounds are normoactive in all 4 quadrants. Abdomen is soft, nontender, nondistended. EXTREMITIES: There is 3+ pitting edema in bilateral lower extremities. No calf tenderness. NEUROLOGIC: Alert and oriented x3. Tongue is midline. Speech is clear and coherent. Uvula is midline. Symmetric smile. No facial droop. He is able to move all 4 extremities, 5/5 in all 4 extremities. Deep tendon reflexes are 2+ bilaterally. LABS AND IMAGING: Labs show hemoglobin of 10.3, hematocrit of 31, platelets of 175. INR of 1.03, APTT of 34.8. CK of 251, CRP of 29. BUN 47, creatinine of 1.83. Baseline creatinine is 2.07, done in September 2018. The patient had an EKG done which shows atrial fibrillation. Brain CT was done which shows bifrontal acute on chronic subdural hematoma measuring 0.9 cm in thickness on the left and 0.4 cm on the right. No midline shift and no significant mass effect is noted. IMPRESSION AND PLAN: 1. Acute on chronic subdural hematoma bilaterally; Dr. Concepcion, Neurosurgery will be consulted. He deemed the patient not a neurosurgical candidate. At this point, we will keep the patient in the intensive care unit overnight, monitor neuro checks, goal blood pressure of less than 140. Currently, the blood pressure is less than 140. If the blood pressure goes more than 140, we will intervene at that point. There is no midline shift or any mass effects, so at this point there is no indication for steroids or hypertonic saline. 2. Chronic kidney disease. We will monitor. 3. Mild elevation of CK-MB. Does not meet criteria for rhabdomyolysis. 4. Essential hypertension. Continue home medications. 5. Prostate cancer history. 6. DVT prophylaxis: Due to subdural hematoma with no chemo prophylaxis. We will start the patient on sequential compression device. [id number]/[facility] #: [id number] MTDD
[2019-01-08 06:50] LABS: BUN/Creatinine Ratio 26.9 (8-20); Calcium 9.1 mg/dL (8.6-10.3); EGFR African American 45.8 (>60); EGFR Non-African American 37.9 (>60); Potassium 4.8 mmol/L (3.5-5.0)
[2019-01-08 06:56] LABS: CKMB ng/mL 15.9 ng/mL (0.6-6.3)
[2019-01-08] MEDS ORDERED: Triamcinolone 0.5% OINT * 15 GM TUBE TOPICAL SCH (09:00)
[2019-01-08] MEDS ORDERED: NIFEdipine ER TAB* 60 MG PO SCH (09:00)
[2019-01-08] MEDS ORDERED: Losartan TAB* 25 MG PO SCH (09:00)
[2019-01-08] MEDS ORDERED: Hydrochlorothiazide TAB* 25 MG PO SCH (09:00)
--- NOTE | 2019-01-08 09:12 | PN ---
Subjective Date of Service: 01/08/19 Interval History: Pt described in detail how he fell after driving from DR. Peterson's office yesterday and fell on the steps of his garage. No LOC reported but pt spent a fair amount of time trying to get up and finally alerted the neighbour who called the ambulance Pt was started on Lasix 1 week ago for leg and scrotal edema. Denies SOB Objective Active Medications: Acetaminophen (Tylenol Tab*) 650 mg PO Q6H PRN PRN Reason: FEVER/PAIN Hydrochlorothiazide (Hydrodiuril Tab*) 25 mg PO DAILY [facility] Last Admin: 01/08/19 07:06 Dose: 25 mg Losartan Potassium (Cozaar Tab*) 100 mg PO DAILY [facility] Last Admin: 01/08/19 07:06 Dose: 100 mg Nifedipine (Procardia Xl Tab*) 60 mg PO QAM [facility] Last Admin: 01/08/19 07:06 Dose: 60 mg Ondansetron HCl (Zofran Inj*) 4 mg IV Q6H PRN PRN Reason: NAUSEA Terazosin HCl (Hytrin Cap*) 2 mg PO BEDTIME [facility] Triamcinolone Acetonide (Triamcinolone 0.5% Oint *) 1 applic TOPICAL BID [facility] Vital Signs - 8 hr 01/08/19 01/08/19 01/08/19 01:13 01:20 01:41 Temperature 97.8 F Pulse Rate 84 82 84 Respiratory 18 20 23 Rate Blood Pressure 135/68 135/68 133/76 (mmHg) O2 Sat by Pulse 93 96 97 Oximetry 01/08/19 01/08/19 01/08/19 01:42 02:00 02:01 Temperature 96.9 F Pulse Rate 85 85 85 Respiratory 21 24 22 Rate Blood Pressure 133/76 140/83 (mmHg) O2 Sat by Pulse 96 95 96 Oximetry 01/08/19 01/08/19 01/08/19 02:05 02:55 02:56 Temperature Pulse Rate Respiratory 19 23 23 Rate Blood Pressure (mmHg) O2 Sat by Pulse Oximetry 01/08/19 01/08/19 01/08/19 02:57 03:00 03:37 Temperature Pulse Rate 85 84 Respiratory 23 21 19 Rate Blood Pressure 150/73 123/61 (mmHg) O2 Sat by Pulse 95 96 Oximetry 01/08/19 01/08/19 01/08/19 03:48 03:52 04:00 Temperature 98.1 F Pulse Rate 63 Respiratory 18 19 Rate Blood Pressure 139/66 (mmHg) O2 Sat by Pulse 96 Oximetry 01/08/19 01/08/19 01/08/19 04:01 05:00 05:02 Temperature Pulse Rate 70 79 79 Respiratory 17 19 19 Rate Blood Pressure 123/79 (mmHg) O2 Sat by Pulse 95 97 96 Oximetry 01/08/19 01/08/19 01/08/19 05:27 05:45 06:00 Temperature Pulse Rate 85 Respiratory 21 19 22 Rate Blood Pressure (mmHg) O2 Sat by Pulse 95 Oximetry 01/08/19 01/08/19 01/08/19 06:28 06:31 06:42 Temperature Pulse Rate 90 91 88 Respiratory 24 24 20 Rate Blood Pressure 149/80 157/87 149/88 (mmHg) O2 Sat by Pulse 94 95 94 Oximetry 01/08/19 01/08/19 07:00 07:32 Temperature Pulse Rate 84 Respiratory 20 18 Rate Blood Pressure 140/80 (mmHg) O2 Sat by Pulse 94 Oximetry Oxygen Devices in Use Now: None Appearance: 88 yo M in nAD, AAOx3, tangential manner of speaking Eyes: No Scleral Icterus, PERRLA Ears/Nose/Mouth/Throat: NL Teeth, Lips, Gums, Mucous Membranes Moist Neck: NL Appearance and Movements; NL JVP, Trachea Midline Respiratory: Symmetrical Chest Expansion and Respiratory Effort, - - crackles at b/l bases Cardiovascular: - - irregular Abdominal: NL Sounds; No Tenderness; No Distention, No Hepatosplenomegaly Lymphatic: No Cervical Adenopathy Extremities: No Clubbing, Cyanosis, - - +1 pitting pedal edema b/l, trace scrotal edema Skin: No Nodules or Sclerosis, - - venosu stasis changed b/l distal LE's. Ecchymoses of b/l UE's Neurological: Alert and Oriented x 3, NL Muscle Strength and Tone, - - speech clear, gati not evaluated Result Diagrams: 01/07/19 21:42 01/08/19 06:04 Additional Lab and Data: Lab Results 01/07/19 01/07/19 01/07/19 Range/Units 21:42 21:42 21:42 WBC 7.3 (3.5-10.8) 10^3/ul RBC 3.38 L (4.00-5.40) 10^6/ul Hgb 10.3 L (14.0-18.0) g/dl Hct 31 L (42-52) % MCV 92 (80-94) fL MCH 30 (27-31) pg MCHC 33 (31-36) g/dl RDW 17 H (10.5-15) % Plt Count 175 (150-450) 10^3/ul MPV 8.4 (7.4-10.4) fL Neut % (Auto) 80.5 % Lymph % (Auto) 8.6 % [place] % (Auto) 10.4 % Eos % (Auto) 0.2 % Baso % (Auto) 0.3 % Absolute Neuts (auto) 5.9 (1.5-7.7) 10^3/ul Absolute Lymphs (auto) 0.6 L (1.0-4.8) 10^3/ul Absolute Monos (auto) 0.8 (0-0.8) 10^3/ul Absolute Eos (auto) 0 (0-0.6) 10^3/ul Absolute Basos (auto) 0 (0-0.2) 10^3/ul Absolute Nucleated RBC 0 10^3/ul Nucleated RBC % 0 INR (Anticoag Therapy) 1.03 H (0.77-1.02) APTT 34.8 (26.0-36.3) seconds Sodium 140 (135-145) mmol/L Potassium 4.7 (3.5-5.0) mmol/L Chloride 112 H (101-111) mmol/L Carbon Dioxide 22 (22-32) mmol/L Anion Gap 6 (2-11) mmol/L BUN 47 H (6-24) mg/dL Creatinine 1.83 H (0.67-1.17) mg/dL Est GFR ( Amer) 42.4 (>60) Est GFR (Non-Af Amer) 35.0 (>60) BUN/Creatinine Ratio 25.7 H (8-20) Glucose 97 (70-100) mg/dL Calcium 9.1 (8.6-10.3) mg/dL Phosphorus 3.3 (2.5-5.0) mg/dL Magnesium 2.0 (1.9-2.7) mg/dL Total Bilirubin 0.60 (0.2-1.0) mg/dL AST 22 (13-39) U/L ALT 14 (7-52) U/L Alkaline Phosphatase 97 (34-104) U/L Total Creatine Kinase 251 H (10-223) U/L CK-MB (CK-2) 14.2 H (0.6-6.3) ng/mL C-Reactive Protein 29.53 H (<8.01) mg/L B-Natriuretic Peptide (<=100) pg/mL Total Protein 7.0 (6.4-8.9) g/dL Albumin 3.7 (3.2-5.2) g/dL Globulin 3.3 (2-4) g/dL Albumin/Globulin Ratio 1.1 (1-3) 01/07/19 Range/Units 21:42 WBC (3.5-10.8) 10^3/ul RBC (4.00-5.40) 10^6/ul Hgb (14.0-18.0) g/dl Hct (42-52) % MCV (80-94) fL MCH (27-31) pg MCHC (31-36) g/dl RDW (10.5-15) % Plt Count (150-450) 10^3/ul MPV (7.4-10.4) fL Neut % (Auto) % Lymph % (Auto) % [place] % (Auto) % Eos % (Auto) % Baso % (Auto) % Absolute Neuts (auto) (1.5-7.7) 10^3/ul Absolute Lymphs (auto) (1.0-4.8) 10^3/ul Absolute Monos (auto) (0-0.8) 10^3/ul Absolute Eos (auto) (0-0.6) 10^3/ul Absolute Basos (auto) (0-0.2) 10^3/ul Absolute Nucleated RBC 10^3/ul Nucleated RBC % INR (Anticoag Therapy) (0.77-1.02) APTT (26.0-36.3) seconds Sodium (135-145) mmol/L Potassium (3.5-5.0) mmol/L Chloride (101-111) mmol/L Carbon Dioxide (22-32) mmol/L Anion Gap (2-11) mmol/L BUN (6-24) mg/dL Creatinine (0.67-1.17) mg/dL Est GFR ( Amer) (>60) Est GFR (Non-Af Amer) (>60) BUN/Creatinine Ratio (8-20) Glucose (70-100) mg/dL Calcium (8.6-10.3) mg/dL Phosphorus (2.5-5.0) mg/dL Magnesium (1.9-2.7) mg/dL Total Bilirubin (0.2-1.0) mg/dL AST (13-39) U/L ALT (7-52) U/L Alkaline Phosphatase (34-104) U/L Total Creatine Kinase (10-223) U/L CK-MB (CK-2) (0.6-6.3) ng/mL C-Reactive Protein (<8.01) mg/L B-Natriuretic Peptide > 1300 H (<=100) pg/mL Total Protein (6.4-8.9) g/dL Albumin (3.2-5.2) g/dL Globulin (2-4) g/dL Albumin/Globulin Ratio (1-3) Microbiology and Other Data: Microbiology 01/08/19 02:14 Nasal Screen MRSA (PCR) - Final Nasal Mrsa Not Detected Assess/Plan/Problems-Billing Assessment: 88 yo M with recent dx of CHF(scrotal edema, b/l LE's edema), chronic A. fib (not anticoagulated), HTN, prostate ca, with acute on chronic SDH after a fall - Patient Problems (1) SDH (subdural hematoma) Comment: b/l frontal, acute on chronic No h/o anticoagulation Appreciate nerurosurgical input, repeat CT this PM Neurologically intact PT/OT (2) Atrial fibrillation Comment: chronic , rate controlled (3) CHF (congestive heart failure) Comment: with recent excerbation will get Echo, pt appears lighly dyspneis, but denies SOB, still LE's edema, will increase Lasix PO to daily (4) HTN (hypertension) Comment: controlled on home meds (5) DVT prophylaxis Comment: SCD, no anticoagulation due to SDH Status and Disposition: Inpatient
[2019-01-08] MEDS ORDERED: Furosemide TAB* 20 MG PO SCH (10:00)
--- NOTE | 2019-01-08 12:04 | PN ---
Progress Note - Progress Note Date of Service: 01/08/19 SOAP: Subjective: []Patient fell last PM striking back of head Seen in ER where eval included CT intrepreted as showing subacute SDH Patient admitted by hospitalists for observation and NS consult requested. Currently he is awake, alert and denies headache He has no prior history of stroke or other neurological issues. He does have a diagnosis of A fib but is currently not anticoagulated Objective: []Laceration on back of head HEENT- normal CN 2-12 intact Motor normal Assessment: []CT shows slight amount of subacute SDH LT > RT with no mass effect or shift F/U CT this AM essentially unchanged Plan: []He has a subacute SDH that is small and requires no further evaluation or treatment I would recommend D/C today
[2019-01-08 12:24] VITALS: BP 153/85
--- NOTE | 2019-01-08 20:44 | DS ---
CC: Dr. José; Dr. Peterson; Dr. Concepcion * DISCHARGE SUMMARY: DATE OF ADMISSION: 01/08/19 DATE OF DISCHARGE: 01/08/19 PRIMARY CARE PROVIDER: Dr. José. DISCHARGE DIAGNOSIS: Bilateral frontal subdural hematoma, acute on chronic due to fall that occurred on 01/07/19. SECONDARY DIAGNOSES: 1. Chronic presumed diastolic congestive heart failure. 2. History of chronic atrial fibrillation. 3. Hypertension. 4. History of prostate cancer. 5. History of knee replacement surgeries in the past. 6. History of nephrolithiasis. MEDICATIONS AT DISCHARGE: Unchanged from admission and include: 1. Furosemide 20 mg daily. 2. Triamcinolone cream on a b.i.d. basis p.r.n. 3. Terazosin 2 mg at bedtime. 4. Nifedipine 60 mg in the morning. 5. Losartan/hydrochlorothiazide 100/25 mg daily. 6. Vitamin B12 1000 mcg injection IM monthly. CONSULTATIONS DURING THE HOSPITAL STAY: Included Dr. Concepcion from Neurosurgery. LABORATORY DATA AND STUDIES PERFORMED DURING THE HOSPITAL STAY: Included: On 01/08/19, sodium of 140, potassium 4.8, chloride 112, carbon dioxide 23, BUN 46 , creatinine 1.7. The patient's total CPK is 251 at admission. Brain natriuretic peptide was above 1300. Coagulation studies showed INR of 1.03 and PTT of 34.8. Brain CT obtained on 01/08/19. Impression: "Findings were consistent with acute on chronic bilateral frontal subdural hematomas, unchanged from previous study from 01/07/19." Portable chest x-ray. Impression: "Findings suggestive of mild congestive heart failure with small more focal bibasilar infiltrates." HOSPITALIZATION COURSE: Jovanni Velazco is an 88-year-old male with a history of recently diagnosed congestive heart failure. Approximately a week ago, the patient was placed on Lasix 20 mg every other day due to scrotal edema and bilateral lower extremity edema. The patient stated that he was just coming back from appointment with Dr. Mcduffie when he was advised what to do with his scrotal edema and in the garage, he missed a step to his house, fell without losing consciousness, but was unable to get up. The patient stated that he was unable to get up for close to 2 hours until he alerted his neighbor living next door when he started yelling to come in and help him. The patient was brought in by the ambulance crew to the hospital. He had a brain CT that showed bilateral acute on chronic frontal subdural hematomas. The patient was placed in the intensive care unit for overnight observation. Dr. Concepcion saw the patient in consultation. After repeat CT was obtained the very next day on 08/18 and noted that the patient is stable from neurosurgical standpoint of view and he can be discharged. The patient underwent physical therapy evaluation and was recommended to continue outpatient occupational therapy as already he is doing as well as continue ambulation with a walker preferably and not a cane like he has done in the past. The patient was noted to have bilateral lower extremity edema and mild scrotal edema. Due to that, a portable chest x-ray was obtained and it showed mild vascular congestion. We discussed this with the patient. He was just started on Lasix and he had used 3 doses in the past 2 weeks with good results. At this point, due to the patient's chronic renal insufficiency, I think it is appropriate for the patient to continue Lasix at current dose. I am not aware of the patient having an echocardiogram in the past and that would be reasonable to proceed in the future for further evaluation of the patient's congestive heart failure. Unfortunately, we were unable to get an echocardiogram on Thursday at [facility]. In regards to the patient's physical exam, it is included in daily progress notes, but grossly the patient is neurologically intact. He has some mild ecchymotic areas in bilateral upper extremities after the fall. The patient is recommended to follow up with his primary care provider in approximately 4 to 7 days. Please note that this is a short summary of the patient's hospital stay. Please also refer to further medical records for details. [id number]/[facility] #: [id number] [facility]
[2019-01-08] MEDS ORDERED: Terazosin CAP* 1 MG PO SCH (21:00)
== END 2019-01-08 14:15 | disposition home or self-care (01) ==
LOC: ED 18:30 → ICU 01-08 00:19 → INTOOBSV 01-08 00:19
PROVIDERS: ADMIT Internal Medicine; ATTEND Internal Medicine
DX: S06.5X9A Traumatic subdural hemorrhage with loss of consciousness of unspecified duration, initial encounter (principal); I48.2 Chronic atrial fibrillation; I11.0 Hypertensive heart disease with heart failure; I89.0 Lymphedema, not elsewhere classified; I50.9 Heart failure, unspecified; W19.XXXA Unspecified fall, initial encounter; Y92.9 Unspecified place or not applicable; Z85.46 Personal history of malignant neoplasm of prostate; Z87.442 Personal history of urinary calculi; Z96.651 Presence of right artificial knee joint
CPT/HCPCS: 36415; 70450; 71045; 80048; 80053; 82550; 82553; 83735; 83880; 84100; 85025; 85610; 85730; 86140; 87641; 93005; 96372; 96374; 99283; A9270-GY; G0378; G8981-GP-CJ; G8982-GP-CH; G8983-GP-CJ

== ENCOUNTER 2019-02-09 13:31 | Emergency (ER) | payer MEDICARE, OTHER ==
[2019-02-09 13:51] VITALS: BP 114/49
--- NOTE | 2019-02-09 16:16 | UC ---
Minor Trauma HPI - HPI Summary HPI Summary: 88-year-old male presents with family complaining of left chest wall pain and scalp laceration after accidentally tripping and falling during the night last night. Fall was unwitnessed. Patient denies any loss of consciousness. Patient states that he hit the left side of his chest on a chair and struck his head on a carpeted floor. Family does note some bruising to the left chest wall as well as a laceration to the left anterior scalp. Bleeding was controlled prior to arrival. Denies any other injuries. Patient has a history of bilateral frontal subdural hematomas from a fall in December 2018. Denies headache, dizziness, visual disturbances, speech difficulties, neck pain, palpitations, shortness of breath, cough, hemoptysis, abdominal pain, nausea, vomiting, extremity weakness numbness or tingling. - History of Current Complaint Chief Complaint: UCGeneralIllness Stated Complaint: FELL RIB PAIN/HEAD INJURY Time Seen by Provider: 02/09/19 15:08 Hx Obtained From: Patient, Family/Director Supply Chain Pain Intensity: 6 - Allergies/Home Medications Allergies/Adverse Reactions: Allergies Allergy/AdvReac Type Severity Reaction Status Date / Time ciprofloxacin [From Cipro] Allergy Hives Verified 02/09/19 13:51 PMH/Surg Hx/FS Hx/Imm Hx Previously Healthy: Yes Cardiovascular History: Hypertension, Congestive Heart Failure, Atrial Fibrillation GI/ History: Kidney Stones Neurological History: Other - Subdural hematoma Cancer History: Prostate Cancer - Surgical History Surgical History: Yes Surgery Procedure, Year, and Place: Kidney stone removal, lithotripsy x3. TKR in 2014, 2017 - Family History Known Family History: Positive: Hypertension - Social History Occupation: Retired Lives: With Family Alcohol Use: Occasionally Substance Use Type: None Smoking Status (MU): Never Smoked Tobacco Amount Used/How Often: occassional cigar or pipe When Did the Patient Quit Smoking/Using Tobacco: 1989 - Immunization History Most Recent Influenza Vaccination: 2013 Most Recent Pneumonia Vaccination: 2008 Review of Systems All Other Systems Reviewed And Are Negative: Yes Constitutional: Negative: Fever, Chills Skin: Positive: Other - Laceration Eyes: Negative: Blurred Vision, Diplopia, Photophobia Respiratory: Positive: Shortness Of Breath, Cough Cardiovascular: Positive: Other - chest wall pain. Negative: Palpitations, Chest Pain Gastrointestinal: Negative: Abdominal Pain, Vomiting, Diarrhea, Nausea Genitourinary: Positive: Negative Musculoskeletal: Positive: Negative Neurological: Negative: Headache, Weakness, Paresthesia, Numbness Is Patient Immunocompromised?: No Physical Exam - Summary Physical Exam Summary: GENERAL APPEARANCE: Well developed, well nourished, alert and cooperative, and appears to be in no acute distress. HEAD: Normocephalic. 1.6 cm superficial laceration of the left anterior scalp. Bleeding controlled. EYES: Conjunctiva clear. No drainage. PERRL, EOM intact. Vision is grossly intact. EARS: External auditory canals and tympanic membranes clear, hearing grossly intact. NOSE: No nasal discharge. THROAT: Pharynx normal. No tonsilar inflammation, swelling, exudate, or lesions. Uvula midline. NECK: Neck supple, non-tender with full painless ROM. CARDIAC: Normal S1 and S2. No S3, S4 or murmurs. Rhythm is regular. There is no peripheral edema, cyanosis or pallor. Extremities are warm and well perfused. Capillary refill is less than 2 seconds. Peripheral pulses intact. LUNGS: Clear to auscultation without rales, rhonchi, wheezing or diminished breath sounds. ABDOMEN: Positive bowel sounds. Soft, nondistended, nontender. No guarding or rebound. No masses or hepatosplenomegally. MUSKULOSKELETAL: ROM intact to all extremities. No joint erythema or tenderness. BACK: Examination of the spine reveals no spinal deformity or tenderness, decreased range of motion or muscular spasm. EXTREMITIES: No significant deformity or joint abnormality. No edema. NEUROLOGICAL: CN II-XII intact. Strength and sensation symmetric and intact throughout. Reflexes 2+ throughout. Cerebellar testing was deferred. SKIN: Skin normal color, texture and turgor. See above. Triage Information Reviewed: Yes Vital Signs: Initial Vital Signs Temp 98 F 02/09/19 13:46 Pulse 57 02/09/19 13:46 Resp 17 02/09/19 13:46 BP 114/49 02/09/19 13:46 Pulse Ox 100 02/09/19 13:46 Vital Signs Reviewed: Yes Procedures - Laceration/Wound Repair 1 Location: head Description: Linear Length, Depth and Shape: 1.6 cm linear laceration of left anterior scalp Betadine Prep?: No Irrigated w/ Saline (ccs): 500 - by RN prior to repair Laceration/Wound Explored: clean Closure: Bicknell #__ - 2 Layer Closure?: No Sterile Dressing Applied?: No Diagnostics - Radiology No standard instances Radiology Interpretation Completed By: Radiologist Summary of Radiographic Findings: Patient Name: SMILEY ALTMAN Medical Record#: [id number]. Ordering Physician: Dakotah Portillo NP Acct.#: [id number]. : 1930 Age: 88 Sex: M Location: [facility]. Exam Date: 1518 ADM Status: REG ER. Order Information: CT BRAIN WO. Accession Number: [id number]. CPT: 26843. INDICATION: Head injury. COMPARISON: Comparison is made with a prior study from January 08, 2019. TECHNIQUE: Contiguous axial sections of the brain were obtained from the skull base to the. vertex without contrast. FINDINGS: The ventricles, cisterns and sulci are enlarged consistent with diffuse atrophy. There are bilateral mixed density subdural hematomas in the frontal regions. The subdural hematoma on the right side measures 0.3 cm in thickness and has decreased slightly in size from the prior exam. The subdural hematoma on the left side measures 0.8 cm in thickness and appears unchanged. No midline shift is present. No other focal abnormalities are seen. No significant focal osseous abnormality is seen. The visualized portion of the paranasal sinuses and mastoid air cells appear clear. IMPRESSION: BILATERAL SUBDURAL HEMATOMAS. THE SUBDURAL HEMATOMA ON THE LEFT SIDE IS UNCHANGED AND A SUBDURAL HEMATOMA ON THE RIGHT SIDE HAS DECREASED SLIGHTLY IN SIZE. Order Information: CHEST PA LAT 2 VWS. Accession Number: [id number]. CPT: 54898. INDICATION: Left chest pain status post fall. COMPARISON: Comparison is made with a prior study from January 08, 2019. TECHNIQUE: Dual-energy PA and lateral views of the chest were obtained. FINDINGS: The heart is upper limits of normal in size and unchanged. There is mild prominence of the interstitial markings. The lungs are underinflated. There are small infiltrates at both lung bases and small bilateral pleural effusions which appear unchanged. No pneumothorax is seen. IMPRESSION: FINDINGS SUGGESTIVE OF CONGESTIVE HEART FAILURE, LESS LIKELY PNEUMONIA, UNCHANGED. Minor Trauma Course/Dx - Course Course Of Treatment: 88-year-old male presents with family complaining of left chest wall pain and scalp laceration after accidentally tripping and falling during the night last night. Fall was unwitnessed. Patient denies any loss of consciousness. Patient states that he hit the left side of his chest on a chair and struck his head on a carpeted floor. Family does note some bruising to the left chest wall as well as a laceration to the left anterior scalp. Bleeding was controlled prior to arrival. Denies any other injuries. Patient has a history of bilateral frontal subdural hematomas from a fall in December 2018. Denies headache, dizziness, visual disturbances, speech difficulties, neck pain, palpitations, shortness of breath, cough, hemoptysis, abdominal pain , nausea, vomiting, extremity weakness numbness or tingling. Afebrile. Vital signs stable. Exam reveals an older adult male in no acute distress with a 1.6 cm superficial laceration to his left anterior scalp with bleeding controlled, ecchymosis with tenderness to the left lateral chest wall without crepitus or subcutaneous emphysema, clear bilateral breath sounds, neurologically intact, and otherwise unremarkable exam. CT brain without was obtained and showed bilateral subdural hematomas which were present on his previous exam in December 2018 with the right being slightly improved and left unchanged. Chest x-ray showed mild prominence of the interstitial markings, small infiltrates at both lung bases and small bilateral pleural effusions which appear unchanged. No pneumothorax is seen. No rib fractures noted. Unchanged from previous x- ray in December 2018. The laceration was irrigated by nursing and then closed by myself using 2 maggi. Patient elected to not receive local anesthesia prior to the placement of the maggi. Patient is to follow-up with his primary care provider in 5 days for a recheck of his injuries as well as staple removal. Family was provided with a staple remover to have available at that appointment. Wound care, anticipatory guidance, and warning symptoms are reviewed with the family and patient. Verbalized understanding and agreed with plan of care. - Differential Dx/Diagnosis Differential Diagnosis/HQI/PQRI: Contusion(s), Laceration(s), Other - Rib fracture, closed head injury, SDH, pulmonary contusion Provider Diagnosis: Contusion of left chest wall, Closed head injury, Laceration of scalp Discharge - Sign-Out/Discharge Documenting (check all that apply): Patient Departure All imaging exams completed and their final reports reviewed: Yes - Discharge Plan Condition: Stable Disposition: HOME Patient Education Materials: Laceration (ED), Head Injury (ED), Staple Care (ED ), Chest Wall Pain (ED) Referrals: Juliann José MD [Primary Care Provider] - 5 Days (Follow up in 5 days for recheck and staple removal.) Additional Instructions: The CT scan of the head performed in the clinic today showed your previous bilateral subdural hematoma with slight improvement on the right side and unchanged on the left. The chest x-ray showed some chronic changes that are unchanged from chest x-ray from December 2018. No evidence of rib fracture. I suspect that you have a contusion (bruise) of the chest wall. The laceration of your scalp was closed using maggi. These will need to be removed in 5 days. Starting tomorrow you may shower and wash your hair as normal. Avoid heavy scrubbing over the area of the wound. Apply a small amount of antibiotic ointment to the wound twice a day. Watch for signs of infection including fever greater than 100.5 F, redness that spreads, increased swelling, or pus draining from the wound. Seek immediate medical attention if any of these occur. You may take acetaminophen (Tylenol) according to directions as needed for pain. Make sure you are doing deep breathing exercises every 1-2 hours while awake to help avoid developing pneumonia. Follow up with your primary care provider in 5 days to staple removal and recheck of injuries. Seek immediate medical attention in the emergency room if you develop severe headache, dizziness, confusion, speech difficulties, one pupil is larger than the other, chest pain, shortness of breath, you cough up blood, have fever greater than 100.5 F, or any worsening of symptoms. - Billing Disposition and Condition Condition: STABLE Disposition: Home
[2019-02-09] MEDS ORDERED: Tetan/Diph/Pertus SYR(Tdap)* 0.5 ML SYR(BOOSTRIX) use SYR IM ONE (16:30)
== END 2019-02-09 17:00 | disposition home or self-care (01) ==
LOC: UCEAST 13:31
DX: S09.90XA Unspecified injury of head, initial encounter (principal); S20.212A Contusion of left front wall of thorax, initial encounter; S01.01XA Laceration without foreign body of scalp, initial encounter; I11.0 Hypertensive heart disease with heart failure; I50.9 Heart failure, unspecified; Z88.1 Allergy status to other antibiotic agents; W18.49XA Other slipping, tripping and stumbling without falling, initial encounter; Y92.9 Unspecified place or not applicable
CPT/HCPCS: 12001; 70450; 71046; 90471; 90715; 99211; G0463

== ENCOUNTER 2019-03-18 18:42 | Inpatient (IN) | payer MEDICARE, OTHER ==
[2019-03-18] MEDS ORDERED: Ondansetron INJ* 2 MG/ML VIAL IV ONE (20:20)
[2019-03-18] MEDS ORDERED: NS 0.9% 1000 ML** 2,000 ML IV ONE (20:20)
[2019-03-18] MEDS ORDERED: Pantoprazole IV* 40 MG IV ONE (20:20)
[2019-03-18] MEDS ORDERED: Morphine 4 MG/ML VIAL (1 ml) 4 MG/ML VIAL IV ONE (20:22)
--- NOTE | 2019-03-18 20:27 | ED ---
Abdominal Pain/Male - HPI Summary HPI Summary: The patient is an 88 y/o M presenting to [facility] with a chief complaint of sudden onset of hiccupping followed by productive cough with dark brown phlegm and associated diffuse epigastric pain starting yesterday. The sharp abd pain, which is currently rated 8/10 in severity, lasts for 1-2 minutes about five times an hour. The pain is aggravated by palpation. He additionally c/o abnormal lethargy and decreased appetite. He denies changes in BM. He currently takes Nifedipine and was recently taken off of Losartan because his BP has been normal. No hx of stomach complications or abd surgeries except for recent renal calculi removal with current self cath in place. - History of Current Complaint Chief Complaint: EDAbdPain Stated Complaint: ABD PAIN PER DAUGHTER Time Seen by Provider: 03/18/19 20:13 Hx Obtained From: Patient Onset/Duration: Sudden Onset, Lasting Days - since yesterday, Still Present Timing: Lasting Days Severity Initially: Moderate Severity Currently: Moderate Pain Intensity: 8 Pain Scale Used: 0-10 Numeric Location: Epigastric Radiates: No Character: Sharp Aggravating Factor(s): Other: - coughing/hiccups Alleviating Factor(s): Nothing Associated Signs And Symptoms: Positive: Cough - dark brown phlegm productiion with cough and hiccups, Decreased Appetite, Other - POSITIVE: lethargy; NEGATIVE : changes in BM - Allergies/Home Medications Allergies/Adverse Reactions: Allergies Allergy/AdvReac Type Severity Reaction Status Date / Time ciprofloxacin [From Cipro] Allergy Hives Verified 02/09/19 13:51 Home Medications: Home Medications Acetaminophen [Tylenol Extra Strength] 500 mg PO BID 03/18/19 [History Confirmed 03/18/19] Docusate CAP* [Colace Cap*] 100 mg PO BID 03/18/19 [History Confirmed 03/18/19] PMH/Surg Hx/FS Hx/Imm Hx Endocrine/Hematology History: Denies: Hx Diabetes, Hx Thyroid Disease Cardiovascular History: Reports: Hx Hypertension Respiratory History: Denies: Hx Asthma, Hx Chronic Obstructive Pulmonary Disease (COPD) GI History: Denies: Hx Ulcer History: Reports: Hx Kidney Stones, Other Problems/Disorders - urethral stricture Musculoskeletal History: Reports: Hx Arthritis - right knee Sensory History: Reports: Hx Contacts or Glasses, Hx Hearing Aid Opthamlomology History: Reports: Hx Contacts or Glasses - Cancer History Cancer Type, Location and Year: Prostate Cancer over 20 years ago Hx Chemotherapy: No - radiation - Surgical History Surgery Procedure, Year, and Place: Kidney stone removal, lithotripsy x3. TKR in 2014, 2018 Hx Anesthesia Reactions: No Infectious Disease History: No Infectious Disease History: Denies: Hx Clostridium Difficile, Hx Hepatitis, Hx Human Immunodeficiency Virus (HIV), Hx of Known/Suspected MRSA, Traveled Outside the [place] in Last 30 Days - Family History Known Family History: Positive: Hypertension - Social History Alcohol Use: Occasionally Substance Use Type: Reports: None Smoking Status (MU): Never Smoked Tobacco Amount Used/How Often: occassional cigar or pipe Review of Systems Positive: Other - lethargy Positive: Cough - productive with dark brown phlegm associated with hiccups, Other Positive: Abdominal Pain - diffuse epigastric pain, Other - POSITIVE: decreased appetite; NEGATIVE: changes in BM All Other Systems Reviewed And Are Negative: Yes Physical Exam - Summary Physical Exam Summary: Appearance: Elderly, slender man with no acute distress, Well-appearing, lying in bed comfortably Skin: Warm, dry, no obvious rash Eyes: sclera anicteric, no conjunctival pallor ENT: mucous membranes moist, pharynx appears normal Neck: Supple, nontender Respiratory: Clear to auscultation, no signs of respiratory distress Cardiovascular: Vital signs reveal mild tachycardia. Normal S1, S2. No murmurs. Normal distal pulses in tibial and radial bilaterally. Abdomen: Soft, upper abd tenderness with mild guarding and no rebound, normal active bowel sounds present Musculoskeletal: Normal, Strength/ROM Intact Neurological: A&Ox3, awake and alert, mentation is normal, speech is fluent and appropriate Psychiatric: affect is normal, does not appear anxious or depressed Triage Information Reviewed: Yes Vital Signs On Initial Exam: Initial Vitals Temp Pulse Resp BP Pulse Ox 97.9 F 103 16 179/109 96 03/18/19 18:49 03/18/19 18:49 03/18/19 18:49 03/18/19 18:49 03/18/19 18:49 Vital Signs Reviewed: Yes Diagnostics - Vital Signs Vital Signs Temp Pulse Resp BP Pulse Ox 03/18/19 18:49 97.9 F 103 16 179/109 96 - Laboratory Result Diagrams: 03/18/19 20:35 03/18/19 20:35 Lab Statement: Any lab studies that have been ordered have been reviewed, and results considered in the medical decision making process. - Radiology CXR Radiology Interpretation Completed By: Radiologist Summary of Radiographic Findings: Small pleural effusion. New opacity in the right based compared to last film. ED physician has reviewed this report. - CT Abd/Pel CT CT Interpretation Completed By: Radiologist Summary of CT Findings: 1. Small bowel obstruction due to a small bowel containing left inguinal hernia. No perforation or ischemia. 2. Bilateral pleural effusions and associated lung volume loss. 3. Bosniak type I renal cysts. No followup indicated. 4. Multiple acute left rib fractures. ED physician has reviewed this report. - EKG 20:36 Cardiac Rate: NL - 97 BPM EKG Rhythm: Sinus Rhythm - or ectopic atrial rhythm Summary of EKG Findings: Ventricular premature complex. RBBB and LAFB. Re-Evaluation - Re-Evaluation First Eval Re-Evaluation Time: 00:00 Change: Improved Comment: He states he is feeling somewhat better at this time. Second Eval Re-Evaluation Time: 01:00 Change: Unchanged Comment: He is retaining urine at this time. Third Eval Re-Evaluation Time: 01:45 Change: Unchanged Comment: We spoke concerning admission to [facility] [place]. Abdominal Pain Male Course/Dx - Course Course Of Treatment: The patient is an 88 y/o M with a chief complaint of sudden onset of hiccupping followed by productive cough with dark brown phlegm and associated diffuse epigastric pain starting yesterday. The sharp abd pain, lasts for 1-2 minutes about five times an hour and is aggravated by palpation. He additionally c/o abnormal lethargy and decreased appetite. He denies changes in BM. Upon physical exam, the patient is an elderly, slender man in no acute distress; vital signs reveal mild tachycardia; there is upper abd tenderness with mild guarding and no rebound. In the ED course, the patient was administered Ns, Protonix, Zofran, Morphine, Reglan, Lidocaine, Visipaque, Heparin, Lasix, Ceftriaxone Sodium, and Azithromycin. Blood work reveals elevated WBCs, RDW, abs neuts, abs monos, BUN, creatinine, glucose, alkaline phosphatase, CRP, B-natriuretic peptide, and decreased RBCs, hgb, abs lymphs. UA not obtained. EKG reveals sinus or ectopic atrial rhythm 97 bpm, ventricular premature complex, RBBB, and LAFB. CXR reveals small left pleural effusions with a new opacity in the right base compared to the last film. CT Abd/Pel CT small bowel obstruction from small inguinal hernia on left, bilateral pleural effusions, Bosniak type I renal cysts, and multiple left rib fractures. I consulted with Dr. Temple, surgery, concerning SBO; he recommends admission at 0120. I spoke with Dr. Siddiqui, hospitalist, who accepts the patient for admission at 0130. The patient is diagnosed with SBO. He agrees with the plan and understands the need for admission at this time. - Diagnoses Provider Diagnoses: Small bowel obstruction - Provider Notifications Discussed Care Of Patient With: Leonard Temple - surgery Time Discussed With Above Provider: 01:20 Instructed by Provider To: Other - I consulted with Dr. Temple concerning SBO; he advises admission. I spoke with Dr. Siddiqui who accepts the patient for admission at 0130. Discharge - Sign-Out/Discharge Documenting (check all that apply): Patient Departure - Patient will be admitted to [facility] for further care. Patient Received Moderate/Deep Sedation with Procedure: No - Discharge Plan Condition: Guarded Disposition: ADMITTED TO [facility] - Billing Disposition and Condition Condition: GUARDED Disposition: Admitted to [facility] - Attestation Statements Document Initiated by Antony: Yes Documenting Scribe: Mariam Villatoro Provider For Whom Antony is Documenting (Include Credential): Dr. Philip Hernandez MD Scribe Attestation: Mariam Mark scribed for Dr. Philip Hernandez MD on 03/19/19 at 0657. Scribe Documentation Reviewed: Yes Provider Attestation: The documentation as recorded by the Mariam clifton accurately reflects the service I personally performed and the decisions made by me, Dr. Philip Hernandez MD Status of Antony Document: Viewed
[2019-03-18 20:44] LABS: ABS Basophils 0 10^3/ul (0-0.2); ABS Eosinophils 0 10^3/ul (0-0.6); ABS Lymphocytes 0.3 10^3/ul (1.0-4.8); ABS Monocytes 1.1 10^3/ul (0-0.8); ABS Neutrophils 10.6 10^3/ul (1.5-7.7); ABS Nucleated RBC 0 10^3/ul; Eosinophil % 0.1 %; Hematocrit 37 % (36-46); Hemoglobin 12.1 g/dL (14.0-18.0); Lymphocyte % 2.5 %; Mean Corpuscular HGB Conc 33 g/dL (31-36); Mean Corpuscular Hemoglobin 31 pg (27-31); Mean Corpuscular Volume 92 fL (80-94); Nucleated Red Blood Cells % 0; Platelet Count 205 10^3/uL (150-450); Red Blood Count 3.97 10^6 /uL (4.18-5.48); Red Cell Distribution Width 18 % (10.5-15)
[2019-03-18 21:00] LABS: Albumin 3.7 g/dL (3.2-5.2); Albumin/Globulin Ratio 1.1 (1-3); BUN/Creatinine Ratio 26.6 (8-20); C Reactive Protein 24.16 mg/L (<8.01); Calcium 9.5 mg/dL (8.6-10.3); EGFR African American 40.1 (>60); EGFR Non-African American 33.1 (>60); Globulin 3.5 g/dL (2-4); Potassium 4.8 mmol/L (3.5-5.0); Total Bilirubin 0.5 mg/dL (0.2-1.0); Total Protein 7.2 g/dL (6.4-8.9)
[2019-03-18] MEDS ORDERED: Iodixanol* (CONTRAST) 320 MG/ML 100 ML SDV IV ONE (22:19)
[2019-03-18] MEDS ORDERED: Metoclopramide IV* 5 MG/ML 2 ML VIAL IV ONE (23:01)
[2019-03-18] MEDS ORDERED: cefTRIAXone(*) 1 GM in NS 0.9% 50 ML* 50 ML IVPB ONE (23:04)
[2019-03-18] MEDS ORDERED: Azithromycin IV(*) 500 MG in NS 0.9% 250 ML* 250 ML IVPB ONE (23:04)
[2019-03-18] MEDS ORDERED: NS 0.9% 250 ML* 250 ML ONE (23:11)
[2019-03-19] MEDS ORDERED: Lidocaine 2% JELLY* 6 ML JELLY TOPICAL ONE (00:32)
[2019-03-19] MEDS ORDERED: Morphine INJ* 2 MG/ML 1 ML SYRINGE (TWO MG - NEW SYRINGE VERSION) IV PRN (01:37)
[2019-03-19] MEDS ORDERED: NS 0.9% 1000 ML** 1,000 ML IV SCH (01:45)
[2019-03-19] MEDS ORDERED: Furosemide IV* 10 MG/ML VIAL (40 MG) IV ONE (02:46)
[2019-03-19] MEDS ORDERED: Heparin VIAL(*) 5000 UNITS/ML VIAL (FIVE THOUSAND) SUBCUT SCH (06:00)
--- NOTE | 2019-03-19 06:48 | PN ---
Hospitalist Progress Note Date of Service: 03/19/[address] Peterson about the need for a germain catheter and he agrees. He will come in to place one pre-op. I updated his nurse and requested a 14fr germain.
--- NOTE | 2019-03-19 08:16 | HP ---
CC: Dr. José * HISTORY AND PHYSICAL: DATE OF ADMISSION: 03/19/19 TIME OF ADMISSION: 3 o'clock a.m. CHIEF COMPLAINT: "I was having problems with my abdomen." HISTORY OF PRESENT ILLNESS: This is an 88-year-old man with history of recent subdural hematoma after a fall in December of 2018, who presents to the emergency department with abdominal pain and nausea that started this morning. He and his daughters provide the history. He reports that when he woke up this morning, he was not feeling well and complained of some nausea and poor appetite and then as the day progressed, he began having episodes of pain in his abdomen that were occurring approximately 5 times per hour and he describes them as severe and gripping pain. He localized the pain to approximately 2 inches above his navel. His daughters report that yesterday he was more tired than usual and they knew something was abnormal, but it was not until today that he began having pain and nausea. His last bowel movement was yesterday and was reported to be normal, then he had 2 small bowel movements today. His bowel movements were reported as nonbloody. In the ED, he was found to have a small bowel obstruction and an NG tube was placed. Approximately 2 L have been been drained at this time and it is a dark brown thin material. His daughters report a cough today and that he has been coughing up a lot of brown phlegm. When asked to clarify, they explained that there was definitely a cough and not vomit. It was when they continued to see brown phlegm that they decided to bring him to the emergency department. At this point, Mr. Velazco feels okay and has no complaints. The pain was relieved with morphine and he is not currently nauseous. PAST MEDICAL HISTORY: He has a recent diagnosis of a Mobitz II heart block, for which Dr. Seth recommended a pacemaker; a subdural hematoma in December of 2018 after a fall; hypertension; remote history of prostate cancer, status post radiation; history of nephrolithiasis; urethral stricture, for which he straight caths 4 times per week; and chronic kidney disease. PAST SURGICAL HISTORY: Knee replacement. HEALTHCARE PROXY: His daughter Ann. Valdez's phone number is [phone]. 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 He is living with his daughters since his fall in December. He walks independently. REVIEW OF SYSTEMS: He denies fevers, chills, chest pain, or shortness of breath. He says he sleeps on 2 pillows but this is unchanged. He denies weight gain. He does note that his abdomen is more distended than usual. Remainder of the 14-point review of systems is negative. PHYSICAL EXAMINATION GENERAL: Alert, well-appearing elderly man, who is in no distress, but is tachypneic. VITAL SIGNS: Temperature 98.7, heart rate 99, respiratory rate 22, pulse ox 91 % on 10 L Ventimask, blood pressure 128/79. HEENT: Pupils 3 mm bilaterally and reactive to light. Oral mucosa is dry with a dark film coating his tongue. NECK: JVP to 14 cm of water. LUNGS: Have crackles at both bases half way up the lung ortiz. CHEST He is in a regular rate and rhythm with no murmurs. ABDOMEN: Distended with high-pitched bowel sounds. It is nontender to palpation. His liver is nonpalpable. An NG tube is in place and draining dark brown material. No palpable inguinal hernia. EXTREMITIES: He has 1+ edema to the knees. NEUROLOGIC: He is oriented x3 and appropriate. LABORATORY DATA: White blood cells 12.0, hemoglobin 12.1, platelets 205. Sodium 143, potassium 4.8, chloride 108, BUN 51, creatinine 1.92, glucose 112, lactic acid 0.8. BNP over 1300. IMAGING: An abdomen and pelvis CT shows a small bowel obstruction due to a small bowel containing left inguinal hernia. No perforation or ischemia. Bilateral pleural effusions and associated lung volume loss. Bosniak type 1 renal cyst, no followup indicated and multiple acute left rib fractures. ASSESSMENT AND PLAN: This is an 88-year-old man with history of urinary retention and chronic diastolic heart failure who presents to the emergency department with abdominal pain and nausea, and is found to have a small-bowel obstruction. 1. Small-bowel obstruction. The etiology is an inguinal hernia on the left side. An NG tube has been placed and Dr. Temple has been consulted. His electrolytes are stable at this time. He received 1 L of IV fluid in the emergency department. I am not giving him anymore because I think he is actually volume overloaded. A Duggan catheter was unable to be placed; however, his urine output will be very important in this setting. If he is unable to void on his own, I will ask Urology to place a Duggan catheter. Dr. Temple has been consulted in the emergency department for possible surgical intervention. I have explained the possible need for surgery to Mr. Velazco and his family. Regarding perioperative risk stratification, I have discussed his case with Dr. Seth, who was recommending a pacemaker for a Mobitz type II heart block in the outpatient setting, which his family declined. I appreciate his input regarding the risk of high-grade heart block postoperatively. 2. Acute hypoxic respiratory failure. Mr. Velazco has no baseline oxygen requirement and is currently requiring 10 to 15 L to maintain an oxygen saturation above 88%. I think this is most likely related to either pulmonary edema or aspiration pneumonia/pneumonitis. Based on his bilateral pleural effusions, elevated JVP, lower extremity edema, and elevated BNP, I am opting to give him 1 dose of diuresis to help improve his oxygenation preoperatively. Diuresis is not ideal in the setting of a bowel obstruction given his ongoing volume loss; however, at this degree of hypoxia, he is not stable for the operating room and I need to attempt better oxygenation. 3. Acute on chronic kidney disease. This is unsurprising in the setting of a small bowel obstruction; however, he may also have vascular congestion. He did receive 1 L of fluids in the emergency department, but as per my reasoning above , I am not giving him ongoing fluid replacement. 4. Chronic urinary retention. As mentioned above, a Duggan catheter was unable to be placed in the emergency department. He at home straight caths 4 times a week. If he is unable to urinate on his own, I will ask Urology to place a catheter for strict in and out monitoring. A bladder scan was performed in the ED and only 50 cc were found. 5. Recent history of a subdural hematoma December 2018. He has recovered well from this and is not on anticoagulation. I am not placing him on DVT prophylaxis for this reason. 6. Diet. NPO. [id number]/[facility] #: [id number] [facility]
[2019-03-19] MEDS ORDERED: NS 0.9% 500 ML* 500 ML IV ONE ×2 (09:22→09:24)
--- NOTE | 2019-03-19 09:26 | PN ---
Subjective Date of Service: 03/19/19 Interval History: No more abdominal pain. Hungry. No BM or flatus here. No new c/o. Objective Active Medications: Morphine Sulfate (Morphine Inj (Syringe))*) 2 mg IV Q4H PRN PRN Reason: PAIN - MILD Vital Signs - 8 hr 03/19/19 03/19/19 03/19/19 01:19 01:49 02:01 Temperature Pulse Rate 91 99 100 Respiratory Rate Blood Pressure 163/98 166/120 (mmHg) O2 Sat by Pulse 93 92 92 Oximetry 03/19/19 03/19/19 03/19/19 02:11 02:18 02:20 Temperature 98.7 F Pulse Rate 105 97 100 Respiratory 22 Rate Blood Pressure 128/91 128/91 149/111 (mmHg) O2 Sat by Pulse 90 91 89 Oximetry 03/19/19 03/19/19 03/19/19 02:49 03:01 03:40 Temperature 97.3 F Pulse Rate 101 99 104 Respiratory 20 Rate Blood Pressure 128/79 90/73 (mmHg) O2 Sat by Pulse 89 91 92 Oximetry 03/19/19 07:39 Temperature 98.1 F Pulse Rate 107 Respiratory 20 Rate Blood Pressure 90/58 (mmHg) O2 Sat by Pulse 97 Oximetry Oxygen Devices in Use Now: Nasal Cannula, OxyMask Appearance: Alert, supine on PACU stretcher. In good spirits. Looks comfortable. Eyes: No Scleral Icterus Respiratory: Symmetrical Chest Expansion and Respiratory Effort, Clear to Auscultation, Clear to Percussion Cardiovascular: NL Sounds; No Murmurs; No JVD, RRR, No Edema, - Abdominal: - - Obese, soft, not tender. No BS. Extremities: No Edema, No Clubbing, Cyanosis, - Skin: No Rash or Ulcers, No Nodules or Sclerosis, - Neurological: Alert and Oriented x 3, NL Sensation Result Diagrams: 03/18/19 20:35 03/18/19 20:35 Assess/Plan/Problems-Billing Assessment: - Patient Problems (1) SBO (small bowel obstruction) Current Visit: Yes Status: Acute Code(s): K56.609 - UNSP INTESTNL OBST, UNSP TO PARTIAL VERSUS COMPLETE OBST SNOMED Code(s): 862282629 Comment: Awaiting repeat CT scan 03/19. Management per Dr. Temple. IV fluid for rehydration and maintenance fluids ordered. (2) Urethral stricture Current Visit: No Status: Chronic Code(s): N35.9 - URETHRAL STRICTURE, UNSPECIFIED * DO NOT USE * SNOMED Code(s): 42216852 Comment: Discussed with Dr. Morales 03/19. He will be monitored with I&O's and bladder scans. (3) Heart block Current Visit: Yes Status: Acute Code(s): I45.9 - CONDUCTION DISORDER, UNSPECIFIED SNOMED Code(s): 079794149 (4) Second degree heart block Current Visit: Yes Status: Acute Code(s): I44.1 - ATRIOVENTRICULAR BLOCK, SECOND DEGREE SNOMED Code(s): 567314514 Comment: Patient refused PPM in past. I will discuss with Dr. Seth. (5) CKD (chronic kidney disease) stage 3, GFR 30-59 ml/min Current Visit: Yes Status: Acute Code(s): N18.3 - CHRONIC KIDNEY DISEASE, STAGE 3 (MODERATE) SNOMED Code(s): 528050168 Comment: Est GFR 33.1 03/19/19.
[2019-03-19] MEDS ORDERED: D5W 1/2 NS 1000 ML BAG* 1,000 ML IV SCH (10:00)
--- NOTE | 2019-03-19 10:09 | CONS ---
CC: Dr. Juliann José; Dr. Cameron Peterson; Dr. Brooke Chen; [facility]. CONSULTATION REPORT: DATE OF CONSULT: 03/19/19 HISTORY OF PRESENT ILLNESS: I was contacted in the overnight about the patient, Jovanni Velazco, who is an 88-year-old gentleman, who presented with a 1-day history of abdominal pain along with emesis hortencia t appeared coffee ground along with hiccups and distention. Workup in the emergency room included la bs and CAT scan. CAT scan was suggestive of a small bowel obstruction likely secondary to a small in carcerated left inguinal hernia. Lung ortiz showed bilateral pleural effusions. The patient had no free air in the abdomen, but had small-volume ascites. The patient was evaluated by the hospitalist service and admitted for IV hydration and underwent placement of an NG tube with approximately 750 cc out. The patient also had an attempt at placement of a Duggan catheter. This proved difficult accor ding to the patient, patient's family where the patient had bleeding. The patient describes the obstipation, constipation. He had hiccups earlier, but now he does not. H e complained of again upper abdominal pain that was relieved with narcotics, 1 dose in the emergency room. The patient denies any previous similar symptoms. PAST MEDICAL HISTORY: Hypertension, prostate cancer, urinary stricture, urinary incontinence, kidney stones. PAST SURGICAL HISTORY: Bilateral knee replacements, most recent being 13 months ago under general an esthesia. MEDICATIONS: Medication list reviewed and includes: 1. Lasix. 2. Colace. 3. Terazosin. ALLERGIES: He is allergic to CIPROFLOXACIN. SOCIAL HISTORY: The patient is a nonsmoker. Lives at home. He has 2 daughters nearby, who look aft er him. 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 REVIEW OF SYSTEMS: No fevers or chills. The patient recently had a fall, was hospitalized for hemat brooks. The patient has been followed by his loan operations manager recently. He was recommended for pacemaker, but refused. Currently, he has some shortness of breath, abdominal pain as described. The patient d oes not have symptoms of gastroesophageal reflux, no irritable bowel symptoms, no change in bowel hab its, chronic kidney disease with decreased GFR. The patient follows with Nephrology. Urethral stric tures and seen by Urology regularly. Bilateral lower extremity edema. The patient does ambulate, ca n walk up to flight of stairs a bit slowly, otherwise active. PHYSICAL EXAM: He is afebrile. Blood pressure over night was 90/73, had been in the 120s to 140s pr ior, heart rate of 100, O2 sat 92 on 3 L. He is alert and oriented x3. He is in mild distress, well appearing man. He feels younger than stated age. Head, Ears, Eyes, Nose, and Throat: Normocephali c, atraumatic. Sclerae anicteric. Mucous membranes are dry. Lungs: Decreased breath sound bilatera lly. Abdomen is soft, distended, minimally tender in the epigastrium. No surgical scars. No masses . I could appreciate a hernia in the left groin. It is unclear if there are contents at this point. There is tenderness in the groin without any overlying skin changes. Rectal exam was not performed . Extremities with 1+ pitting edema. No cyanosis. DIAGNOSTIC STUDIES/LABORATORY DATA: Labs reviewed show white count of 12, H and H 12/37, which is si gnificantly above the patient's baseline of 31. Chemistry panel shows an elevated BUN with an elevat ed BUN and creatinine level of 26. His creatinine is 1.92, which is mildly above baseline, elevated at BNP of grater than 1300 and mildly elevated CRP. CT scan reviewed, images were report dictated above. IMPRESSION: Elderly gentleman with small bowel obstruction secondary to a hernia that could possibly reduced at this time, however, the patient continues of symptoms of bloating and obstipation. For t his reason, I have recommended left inguinal hernia repair with mesh, going over the procedure along with the risks, benefits, alternatives. We spoke of possible alternatives of repeating the CAT scan to see if the patient has reduction of the hernia given his age and other comorbidities and this was discussed at length. I feel if that the patient continued to be symptomatic, and even if the study i s within normal limits, I still feel that the patient would benefit from a hernia repair for both pre vention and evaluation. We spoke of the possibility of bowel ischemia and strangulated hernia and the need for bowel resectio n. I spoke of the possible complications of leak, bleeding, infection, need for additional procedure s, need for laparotomy. My anticipation would that we could do this procedure with local MAC, but wi ll discuss this with the anesthesiologist of the possibility of maybe converting to general anesthesi a. The patient has an NG tube in and has not had any significant output in the overnight, but only 75 0 at the time of placement. He does have bleeding at the meatus on physical exam and we have reached out to Urology for placement of a catheter prior to surgical intervention. The patient has received some antibiotics and minimal amount of IV fluids at this time. The hospitalist service is following and have reached out to the loan operations manager. These discussions took place all with the patient and his daughters and their questions were answered . Plan is for open left inguinal hernia repair with mesh. [id number]/[facility] #: [id number]
[2019-03-19] MEDS ORDERED: ceFAZolin 2 GM in NS PREMIX(*) 2 GM/100 ML BAG IVPB ONE (11:40)
--- NOTE | 2019-03-19 13:01 | PN ---
Progress Note - Progress Note Date of Service: 03/19/19 Note: Surgery Progress Note I reviewed the patient's repeat CT abdomen/pelvis which showed essentially no change in small bowel obstruction with transition point in the left inguinal hernia. Patient's NGT had been displaced and not evident on CT scan. On exam he is currently comfortable, has no abdominal tenderness but is distended. He has mild tenderness in LLQ. Dr. Temple had an extensive discussion with the patient and his family. I reviewed again with them that the recommended surgery would be an open left inguinal hernia repair with mesh, possible bowel resection, possible exploratory laparotomy. I explained risks include but are not limited to bleeding, infection, injury to nearby anatomic structures, risk of mesh infection, risk of chronic pain, urinary retention, risk of recurrent hernia. I explained that the obstruction will likely not resolve on its own given that it is from an inguinal hernia and that there can be increased risk of bowel compromise or ischemia. Benefits and alternatives were discussed. Expectations regarding recovery were also discussed. All questions by the patient and family were answered. They wish to proceed with surgery. Patient will likely undergo GETA given the urgency of the case and the small bowel obstruction, in order to protect his airway. I did discuss with the family that given his medical problems including bilateral pleural effusions and heart block, there is also a possibility of prolonged intubation and ICU hospitalization after surgery. Dr. Connell discussed case with milk house worker, Dr. Seth who recommended external pacing pads and who will also evaluate the patient after surgery. Patient will also undergo a separate procedure with Dr. Peterson prior to surgery with a cystoscopy and attempt at placing a germain catheter, given his traumatic placement in the ED. If this is unsuccessful he will undergo a suprapubic catheter after surgery, per Dr. Peterson. Plan for OR with Dr. Temple and myself, currently waiting for OR availability.
[2019-03-19] MEDS ORDERED: Midazolam* 1 MG/ML 2 ML VIAL (2 MG) ONE (14:28)
[2019-03-19] MEDS ORDERED: fentaNYL* 50 MCG/ML 2 ML VIAL (100 MCG VIAL) ONE (14:28)
[2019-03-19] MEDS ORDERED: Ondansetron INJ* 2 MG/ML VIAL ONE (14:30)
[2019-03-19] MEDS ORDERED: Lidocaine 2% PF * 5 ML VIAL ONE (14:30)
[2019-03-19] MEDS ORDERED: Propofol* 10 MG/ML 20 ML BTL ONE (14:30)
[2019-03-19] MEDS ORDERED: Dexamethasone IV* 4 MG/ML 1 ML (4 MG) ONE (14:30)
[2019-03-19] MEDS ORDERED: Rocuronium* 10 MG/ML VIAL ONE (14:37)
--- NOTE | 2019-03-19 15:56 | CONSULT ---
Subjective Date of Service: 03/19/19 Interval History: Date of admission and consult 03/19/[address] 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 2 of his 3 daughters and a son are present. We had met during an office visit 12/2018 for HFpEF/CKD and heart block. We had discussed a pacemaker which he ultimately declined. His potassium has been better now and EKG changes have improved. He was admitted with abdominal pain, nausea, poor appetite. He was found with a small bowel obstruction and needs urgent surgery. Pmhx: HFpEF/CKD HTN Heart block, worsened with hyperkalemia. Neurogenic bladder followed by Dr. Peterson Recurrent falls (? LOC related to heart block) with history of SDH Minor memory impairment Allergies: Cipro 11/08/14 - rash allergy list reviewed on 01/27/2019 Pshx Transurethral Resection Of Prostate (TURP) Ureteral Stent - ( Colonoscopy Total Replacement, Knee - 12/24/14 FH: Heart Disease. Father: Alcoholism - Drinker, had liver disease. age 72. due to Liver Disease. . Mother: Obesity Heart Disease - CHF, age57. due to CHF. . Siblings:1 - 1 brother, none now. 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 HEALTHCARE PROXY: His daughter Ann. Valdez's phone number is [phone]. Medications Active Medications: Dextrose/Sodium Chloride (D5w / Ns 1000 Ml Bag*) 1,000 mls @ 150 mls/hr IV PER RATE [facility] Last Admin: 03/19/19 10:37 Dose: 150 mls/hr Morphine Sulfate (Morphine Inj (Syringe))*) 2 mg IV Q4H PRN PRN Reason: PAIN - MILD Home Medications: Cyanocobalamin INJ * [Vitamin B12 INJ *] 1,000 mcg IM MONTHLY 04/13/18 [History Confirmed 03/18/19] NIFEdipine ER TAB* [Procardia Xl TAB*] 60 mg PO QAM 04/13/18 [History Confirmed 03/18/19] Terazosin CAP* [Hytrin CAP*] 2 mg PO BEDTIME 04/13/18 [History Confirmed ] Triamcinolone 0.5% CREAM(NF) [Triamcinolone 0.5% CREAM*] 1 applic TOPICAL BID [History Confirmed 03/18/19] Furosemide TAB* [Lasix TAB*] 20 mg PO EVERY OTHER DAY 01/08/19 [History Confirmed 03/18/19] Acetaminophen [Tylenol Extra Strength] 500 mg PO BID 03/18/19 [History Confirmed 03/18/19] Docusate CAP* [Colace Cap*] 100 mg PO BID 03/18/19 [History Confirmed 03/18/19] Review of Systems - Measurements Intake and Output: Intake and Output Last 24 Hours 03/17/19 03/18/19 03/19/19 03/20/19 06:59 06:59 06:59 06:59 Intake Total 1050 Balance 1050 Weight 151 lb 3 oz Intake: IV Fluids 1050 Oral 0 - Review of Systems Constitutional Symptoms: Positive: Weakness, Fatigue, Unexplained Falls Dermatology: Negative: Rash, Skin Lesions HEENT: Negative: Change in Hearing, Vertigo Eyes: Negative: Change in Vision, Double Vision Thyroid: Negative: Change in Skin/Hair Pulmonary: Positive: Shortness of Breath, Exercise Intolerance Negative: Cough, Sputum, Hemoptysis, Respiratory Distress, COPD Cardiology: Positive: Swelling of Ankles, Edema Negative: Chest Pain, Palpitations, Peripheral Vascular Dis, Paroxysmal Nocturnal Dyspnea, Orthopnea Gastroenterology: Positive: Abdominal Pain, Nausea, Anorexia Negative: Blood in Stools, Change in Bowel Habits, Haematemesis, Melena Genital - Urinary: Negative: Dysuria, Hematuria Musculoskeletal: Negative: Joint Pain, Joint Stiffness Endocrinology: Negative: Obesity, Diabetes, Polydipsia, Polyuria Hematologic/Lymphatic: Negative: Use of Anticoagulant, Use of Antiplatelet Drugs Neurology: Negative: Change in Speech, Change in Sphincter Function, Hx of Stroke\TIA Psychiatry: Negative: Unusual Anxiety, Suicidal Ideation Allergic/Immunologic: Negative: Hx HIV, Immunocompromise Review of Systems Statement: All other review of systems negative, unless stated above. Objective Vital Signs: Temp Pulse Resp BP Pulse Ox 98.1 F 95 20 90/58 94 03/19/19 07:39 03/19/19 14:00 03/19/19 08:00 03/19/19 07:39 03/19/19 14:00 Oxygen Devices in Use Now: Nasal Cannula, OxyMask Appearance: nad, under influence of pain medicaiton Ears/Nose/Mouth/Throat: Clear Oropharnyx, Mucous Membranes Moist Neck: Trachea Midline, - - uncertain jvp Respiratory: Symmetrical Chest Expansion and Respiratory Effort, - - no weheze Cardiovascular: RRR, - - 1/6 systolic murmur, mild edema Abdominal: NL Sounds; No Tenderness; No Distention Skin: No Rash or Ulcers Neurological: Alert and Oriented x 3 Laboratory Results: 03/18/19 20:35 03/18/19 20:35 Total Bilirubin 0.50 mg/dL (0.2-1.0) 03/18/19 20:35 AST 16 U/L (13-39) 03/18/19 20:35 ALT 11 U/L (7-52) 03/18/19 20:35 Alkaline Phosphatase 141 U/L (34-104) H 03/18/19 20:35 B-Natriuretic Peptide > 1300 pg/mL (<=100) H 03/18/19 20:35 Total Protein 7.2 g/dL (6.4-8.9) 03/18/19 20:35 Albumin 3.7 g/dL (3.2-5.2) 03/18/19 20:35 Globulin 3.5 g/dL (2-4) 03/18/19 20:35 Albumin/Globulin Ratio 1.1 (1-3) 03/18/19 20:35 Diagnostic Imaging: 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 There is a second degree AV block. I reviewed the EKG with Dr. Alberts from who felt that it was a mobitz 2. ( Potassium was 5.4 at that time) EKG 01/2018: NSR, RBBB, LAFB, wenkebach mobitz 1 Echo 12/2018: Mild LVH, LVEF 50-55% with inferior/inferolateral hypokinesis, moderate LA dilation with restrictive diastolic filling pattern, mild-moderate anterior directed MR, moderate pulmonary HTN xr 03/19/2019: b/l pleural effusions EKG Data: ekg today shows what appears to be NSR with a very long 1 aVB (very long 1 avb also noted 01/07/19 ekg), RBBB, LAFB, pvc Assessment/Plan Patient requires urgent surgery for a lifethreatening condition. There are no absolute cardiac contraindications to this and would proceed without delay. I discussed with patient and family at beside. They understand risks involved with the surgery. Out of precaution I would leave external pacing pads in place in the unlikely event he would develop high degree AV block with hemodynamic compromise. I am available if needed today for help with cardiac management. Discussed with Dr. Yoon and Dr. Peterson.
[2019-03-19] MEDS ORDERED: Bupivacaine 0.25% W/EPI* 10 ML SDV ONE (16:03)
[2019-03-19] MEDS ORDERED: metroNIDAZOLE IV 500 MG/100ML* 500 MG/100 ML BAG IVPB ONE (16:04)
[2019-03-19] MEDS ORDERED: KETAMINE HCL* 50 MG/ML 10 ML VIAL ONE (16:22)
[2019-03-19] MEDS ORDERED: fentaNYL* 50 MCG/ML 5 ML VIAL (250 MCG VIAL) ONE (16:30)
--- NOTE | 2019-03-19 17:03 | BRIEFOPN ---
Brief Operative Note - Surgery Procedures: Procedures Pre-OP Diagnoses: Incarcerated Left inguinal hernia Post-op Diagnosis: same Procedure: open Left inguinal hernia repair with mesh Surgeon: Maverick Asst: Car Urbanothesiezra: CLAIRE Connell EBL: minimal IVF: crystalloid Specimen: lipoma of cord Drains: none
--- NOTE | 2019-03-19 19:58 | PN ---
Progress Note - Progress Note Date of Service: 03/19/19 Note: CXR following central line insertion shows an infiltrate in right side of the lungs that likely represents aspiration pneumonia. This could represent gastric acid aspiration, but I will start broad-spectrum antibiotic coverage empirically.
[2019-03-19] MEDS ORDERED: Piperacillin/Tazobac ADVAN(*) 3.375 GM in NS 0.9% 100 ML* 100 ML IVPB ONE (19:59)
[2019-03-19] MEDS ORDERED: Lactated Ringers 1000 ML Bag* 1,000 ML IV SCH (20:00)
[2019-03-19] MEDS ORDERED: Zosyn per Pharmacy* NOTE FOLLOW UP SCH (20:00)
[2019-03-19] MEDS: Chlorhexidine MOUTHWASH 0.12%* 15 ML UDC TOPICAL SCH ×2 (20:19→23:56)
[2019-03-19] MEDS: Heparin VIAL(*) 5000 UNITS/ML VIAL (FIVE THOUSAND) SUBCUT SCH (20:19)
[2019-03-19] MEDS: Norepinephrine 16MCG/ML IVPRE* 4,000 MCG/250 ML BAG IV SCH (20:19)
[2019-03-19] MEDS: ZOSYN 3.375 GM Q8H per EXTENDED INFUSION IVPB SCH ×2 (23:56)
[2019-03-20] MEDS: Propofol* 100 ML IV SCH ×2 (00:51→05:16)
--- NOTE | 2019-03-20 01:03 | CONS ---
CRITICAL CARE CONSULT: DATE OF CONSULTATION: 03/19/19 REASON FOR CONSULTATION: Postop hypotension. HISTORY OF PRESENT ILLNESS: The patient is an 88-year-old white male who was admitted last evening with a small bowel obstruction due to an incarcerated left inguinal hernia and also had difficulty preoperatively with urethral catheterization. The patient has a remote history of prostate cancer, status post radiation with urethral stricture, and self catheterizes himself -initial attempt at urethral catheterization was traumatic and unsuccessful. The patient subsequently had the catheter placed by direct cystoscopy guidance. The patient then had a surgical repair of the hernia, and experienced an episode of vomiting and possible aspiration during anesthesia induction. During the procedure, the patient developed hypotension requiring vasopressor support with Levophed - on admission to the ICU, Levophed was at 8 mcg per minute. PAST MEDICAL HISTORY: Only other pertinent history includes hypertension, a Mobitz II AV block (patient refused pacer) and a subdural hematoma. REVIEW OF SYSTEMS: Unobtainable. PHYSICAL EXAM: The patient was unresponsive, on propofol sedation. Vital Signs : Temp 97.3, heart rate 74, respirations 14, O2 sat 97%, blood pressure 120/60 with a mean pressure of 66. HEENT: Orotracheal tube in place. Neck: Supple. There is no jugular venous distention. Lungs: Clear to auscultation. Cardiac Exam: Reveals no murmurs or rubs. Abdomen: Soft. Extremities: Warm. Not cyanotic and not edematous. Neurologic: Pupils were mid position and reactive to light. DIAGNOSTIC STUDIES/LAB DATA: Most recent labs are preoperative and include a BNP of greater than 1300, C-reactive protein of 24. BUN of 51 and creatinine of 1.9. White count of 12, hemoglobin of 12, hematocrit of 37, platelet count of 205. Preop chest x-ray shows enlarged cardiac silhouette with blunting of both costophrenic angles and no pulmonary infiltrates. EKG shows a possible Mobitz II AV block, but no acute ST or T wave changes. IMPRESSION: Patient who developed hypotension during repair of an incarcerated inguinal hernia. There is no evidence of sepsis at this time and the hypotension could well have been a response to anesthesia. Other potensitla problem is aspiration pneumonia. MANAGEMENT PLAN: Will infuse volume and try to taper the vasopressor. Will get repeat CXR and decide about antibiotics based on the postop film. In the AM , will attempt to wean from mechanical ventilation. Will also consult Cardiology, although I do not think that the AV block requires an intervention at this time. CRITICAL CARE TIME: Seventy minutes. [id number]/[facility] #: [id number] MTDD
[2019-03-20] MEDS: Chlorhexidine MOUTHWASH 0.12%* 15 ML UDC TOPICAL SCH ×5 (05:16→18:33)
[2019-03-20 05:36] LABS: ABS Basophils 0 10^3/ul (0-0.2); ABS Eosinophils 0 10^3/ul (0-0.6); ABS Lymphocytes 0.1 10^3/ul (1.0-4.8); ABS Monocytes 0.6 10^3/ul (0-0.8); ABS Neutrophils 10.6 10^3/ul (1.5-7.7); ABS Nucleated RBC 0 10^3/ul; Eosinophil % 0 %; Hematocrit 27 % (36-46); Hemoglobin 8.9 g/dL (14.0-18.0); Lymphocyte % 1.2 %; Mean Corpuscular HGB Conc 33 g/dL (31-36); Mean Corpuscular Hemoglobin 31 pg (27-31); Mean Corpuscular Volume 93 fL (80-94); Mean Platelet Volume 8.7 fL (7.4-10.4); Nucleated Red Blood Cells % 0; Platelet Count 143 10^3/uL (150-450); Red Blood Count 2.89 10^6 /uL (4.18-5.48); Red Cell Distribution Width 18 % (10.5-15); White Blood Count 11.4 10^3/uL (3.5-10.8)
[2019-03-20 06:03] LABS: BUN/Creatinine Ratio 27.1 (8-20); Calcium 8.3 mg/dL (8.6-10.3); EGFR African American 31.6 (>60); EGFR Non-African American 26.1 (>60); Potassium 4.6 mmol/L (3.5-5.0)
--- NOTE | 2019-03-20 07:02 | OP ---
OPERATIVE REPORT: DATE OF OPERATION: 03/19/19 DATE OF : [birth year] SURGEON: Cameron Peterson MD ANESTHESIOLOGIST: Dr. Ryley Connell. ANESTHESIA: General. PRE-OP DIAGNOSES: 1. Urinary retention. 2. Urethral stricture. 3. Status post radiation therapy for prostate carcinoma. POST-OP DIAGNOSES: 1. Urinary retention. 2. Urethral stricture. 3. Status post radiation therapy for prostate carcinoma. OPERATIVE PROCEDURE: Cystoscopy, urethral dilation, complex placement of urethral catheter (crow-tip catheter, 16-Citizen Of [place]). INDICATION FOR PROCEDURE: Mr. Velazco is an 88-year-old white male who has history of prostate carcinoma and was treated with a full course of external beam radiation therapy with a very good response. He has done well and has had no recurrent disease. He developed tight urethral strictures, which have been managed with periodic self dilation with a 14-Citizen Of [place] straight catheter. The patient was admitted earlier today with bowel obstruction secondary to an incarcerated left inguinal hernia. Attempt at placement of a Duggan catheter was not successful because of the urethral stricture. The patient is undergoing emergency surgery to reduce the hernia and the plan is to perform a cystoscopy and placement of a urethral catheter. PATHOLOGY AT CYSTOSCOPY: The penile urethra and the distal bulbar urethrae looked normal. There was tight stricture involving the area of the membranous urethra and the bladder neck. There were areas of trauma to the urethra wall distal to this level of the stricture from the attempted catheterizations. Examination of the bladder showed diffuse trabeculations. There were no suspicious bladder lesion seen. DESCRIPTION OF PROCEDURE: After successful general anesthesia, the patient was placed in the lithotomy position and was prepped and draped for a cystoscopy. A size 17 cystoscope was introduced under direct vision inside the urethra. The pathology in the posterior urethra was noted. A flexible-tip guidewire was then introduced through the cystoscope, the urethral lumen was identified and a guidewire passed inside the bladder. That allowed the safe introduction and dilation of the stricture with the cystoscope. The bladder was then inspected. The cystoscope was then removed keeping the guidewire in place. A size 16- Citizen Of [place] crow-tip catheter was fed on top of the guidewire and introduced inside the bladder and the balloon inflated with 15 cc of water. The bladder was drained. The patient was then placed in the supine position and Dr. Bollo proceeded with the hernia surgery. The plan is to keep the Duggan in place for at least 1 week and it will be removed when the patient is fully recovered from his recent surgery. [id number]/[facility] #: [id number] MATT
--- NOTE | 2019-03-20 07:27 | OP ---
CC: Dr. Juliann José; Dr. Cameron Peterson; Dr. Chen; [facility]. OPERATIVE REPORT: DATE OF OPERATION: 03/19/19 DATE OF : [birth year] SURGEON: Leonard Temple MD EMAIL CAMPAIGN SPECIALIST: Car. ANESTHESIOLOGIST: Dr. Connell ANESTHESIA: General anesthesia. PRE-OP DIAGNOSIS: Incarcerated left inguinal hernia. POST-OP DIAGNOSIS: Incarcerated left inguinal hernia. OPERATIVE PROCEDURE: Open left inguinal hernia repair with mesh. ESTIMATED BLOOD LOSS: Minimal blood loss. FLUIDS: 1400 cc of crystalloid fluid given. SPECIMEN: Lipoma of cord. COUNTS: Lap pad count and instrument count correct at the end of the procedure. The patient remained intubated, transferred to the PACU in stable condition. DESCRIPTION OF PROCEDURE: The patient was seen earlier today with what appeared to be incarcerated i nguinal hernia with small bowel obstruction secondary to this. On physical exam, the patient had dis comfort in the left inguinal region and a clear defect, but it was difficult to appreciate bowel cont ents in this site, due to the patient's difficult access with regards to bladder catheterization a was called. They evaluated the patient as well and we made a recommendation given patient's findings upon admission that we would repeat the CT scan of the abdomen and pelvis to see if this hernia had spontaneously been reduced or would have been reduced in the ER prior since it was difficult to appre ciate this. The patient remained obstipated and underwent a CAT scan of the abdomen and pelvis with noncontrast, these images were reviewed and were suggestive of continued incarcerated left inguinal h ernia repair with small bowel secondary to this. Therefore, the patient was recommended for an open left inguinal hernia repair with mesh with possible bowel resection, possible laparotomy. I detailed this with the patient's family prior to the patient undergoing the second CT scan. The patient had b een seen and followed with Dr. Peterson who recommended a placement of a catheter in the OR with cyst oscopy. Due to the arrangements the patient ended up going to the OR approximately 3 p.m., his NG tu be had been removed prior to the CAT scan by some fashion. This was not replaced and the patient was noted to have emesis on the OR at the time of the induction. Please see anesthesia report for addit ional details. Ultimately, the patient underwent general anesthesia and the case was turned over to Deisy Peterson who performed cystoscopy and placement of a coude tip catheter with success, good urine w as noted, and the patient was then placed in a supine position. The abdominal hair was clipped and t he abdomen was prepped and draped in the standard surgical fashion and additional timeout was perform ed. Patient had had preoperative antibiotics and sequential devices on bilateral lower extremities. Previously identified hernia in the left groin was identified. A left groin incision was made. This was deepened down through Navin and Camper's fascia right into the external oblique aponeurosis, th is appeared boggy. We did incise this along the direction of the fibers right down to the external r ing. Flaps were made both cephalad and caudad and the spermatic cord along with the obvious hernia s ac were isolated around the Gabriel drain. The hernia sac was then dissected from the spermatic structures. We did open up the hernia sac and t he copious serous fluid, nonfoul smelling was evacuated. It was a thickened sac, but without content s. We did open this down almost to the internal ring, which was tight and we looked into the abdomen as best we could. We again suctioned serous fluid out and pulled on the hernia sac. There appeared to be no slider and the only contents we could see just deep to the deep ring was the colon. This w as drawn up and intact. We dropped this back down into the abdomen. At this time, the patient showed evidence of hypotension with our possible concern of aspiration. I made the decision to perform a rapid hernia repair with mesh given our findings of only serous fluid and not to perform by laparoscopy or laparotomy at this time. We dissected fully the hernia sac from the spermatic structures. We did a pursestring over this with a 2-0 Vicryl stitch and dunked this back into the abdomen. We then used the patch and plug system, placed in the plug in the appropriate fashion and suturing it to the shelving edge of the inguinal li gament and also laterally utilizing the inner leaflets. The ilioinguinal nerve that was isolated ear lier on the case was then sacrificed given the root of this and I did not wish to dissect this out mo re, this was then ligated in the floor of the hernia, and the floor of the inguinal canal was assesse d again. We had assessed it earlier and did note a weakness to the floor with a bulging consistent w ith a direct hernia, but without any significant contents. We did not open up into this area as this was easily reduced. We also earlier had removed a lipoma of the cord and passed it off as a specime n. With the plug in place we then placed the patch suturing it at the pubic tubercle and running a stitc h along the shelving edge of the inguinal ligament and also superiorly to the direct hernia in the ap propriate fashion. This covered the full defect. We did slit the mesh to re-create the external rin g and sutured the tails together. They were dunked under the external oblique aponeurosis laterally. The mesh laid without wrinkling. We then sutured the aponeurosis external oblique after removing t he [place] drain in a running fashion. We irrigated copiously and reapproximated the skin with the s kin gun. Sterile dressing was applied. The patient tolerated the procedure, but remained intubated given our concern for hypotension and we transferred to the ICU. [id number]/[facility] #: [id number]
[2019-03-20] MEDS: Norepinephrine 16MCG/ML IVPRE* 4,000 MCG/250 ML BAG IV SCH (07:41)
[2019-03-20] MEDS ORDERED: Famotidine IV* 10 MG/ML 2 ML (20 mg) IV SCH (09:00)
[2019-03-20] MEDS: ZOSYN 3.375 GM Q8H per EXTENDED INFUSION IVPB SCH ×2 (09:00)
[2019-03-20] MEDS ORDERED: Famotidine IV * 20 MG in NS 0.9% 100 ML* 100 ML IVPB SCH (09:00)
[2019-03-20] MEDS: Heparin VIAL(*) 5000 UNITS/ML VIAL (FIVE THOUSAND) SUBCUT SCH ×2 (09:05→21:48)
--- NOTE | 2019-03-20 09:12 | PN ---
Subjective Date of Service: 03/20/19 Interval History: f/u AV block, HFpEF/CKD s/p or yesterday germain in intubated and sedated on pressors and abx family at bedside ekg this AM CLOVIS reyse/NEDA Medications Active Medications: Chlorhexidine Gluconate (Peridex Mouth Wash 0.12%*) 15 ml TOPICAL Q4H [facility] Last Admin: 03/20/19 05:16 Dose: 15 ml Famotidine (Pepcid Iv*) 20 mg IV DAILY [facility] Last Admin: 03/20/19 09:05 Dose: 20 mg Heparin Sodium (Porcine) (Heparin Vial(*)) 5,000 units SUBCUT Q12HR [facility] Last Admin: 03/20/19 09:05 Dose: 5,000 units Lactated Ringer's (Lactated Ringers 1000 Ml Bag*) 1,000 mls @ 125 mls/hr IV PER RATE [facility] Last Admin: 03/19/19 19:44 Dose: 125 mls/hr Norepinephrine Bitartrate (Levophed 16 Mcg/Ml Premix Bag*) 4,000 mcg in 250 mls @ 18.75 mls/hr IV .INITIAL RATE [facility] Last Admin: 03/20/19 07:41 Dose: 26.3 mls/hr Piperacillin Sod/Tazobactam (Sod 3.375 gm/ Sodium Chloride) 100 mls @ 25 mls/ hr IVPB Q8H [facility] Last Admin: 03/20/19 09:00 Dose: 25 mls/hr Propofol (Diprivan*) 100 mls @ 12.344 mls/hr IV .(Initial Rate) [facility]; Protocol Last Admin: 03/20/19 05:16 Dose: 15.1 mls/hr Morphine Sulfate (Morphine Inj (Syringe))*) 2 mg IV Q4H PRN PRN Reason: PAIN - MILD Pharmacy Consult (Zosyn Per Pharmacy*) 1 note FOLLOW UP .ZOSYN PER PHARMACY [facility] Objective Vital Signs: Temp Pulse Resp BP Pulse Ox 97.3 F 72 16 110/52 93 03/20/19 06:01 03/20/19 06:01 03/20/19 06:00 03/20/19 06:00 03/20/19 06:01 Oxygen Devices in Use Now: Endotracheal Tube, Mechanical Ventilator Appearance: Intubated, sedated Neck: Trachea Midline Respiratory: - - ventilated and transmitted breath sounds Cardiovascular: RRR, - Abdominal: NL Sounds; No Tenderness; No Distention Skin: No Rash or Ulcers Neurological: Alert and Oriented x 3 Laboratory Results: 03/20/19 05:10 03/20/19 05:10 Total Bilirubin 0.50 mg/dL (0.2-1.0) 03/18/19 20:35 AST 16 U/L (13-39) 03/18/19 20:35 ALT 11 U/L (7-52) 03/18/19 20:35 Alkaline Phosphatase 141 U/L (34-104) H 03/18/19 20:35 B-Natriuretic Peptide > 1300 pg/mL (<=100) H 03/18/19 20:35 Total Protein 7.2 g/dL (6.4-8.9) 03/18/19 20:35 Albumin 3.7 g/dL (3.2-5.2) 03/18/19 20:35 Globulin 3.5 g/dL (2-4) 03/18/19 20:35 Albumin/Globulin Ratio 1.1 (1-3) 03/18/19 20:35 Diagnostic Imaging: 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 There is a second degree AV block. I reviewed the EKG with Dr. Alberts from who felt that it was a mobitz 2. ( Potassium was 5.4 at that time) EKG 01/2018: NSR, RBBB, LAFB, wenkebach mobitz 1 Echo 12/2018: Mild LVH, LVEF 50-55% with inferior/inferolateral hypokinesis, moderate LA dilation with restrictive diastolic filling pattern, mild-moderate anterior directed MR, moderate pulmonary HTN xr 03/19/2019: b/l pleural effusions EKG Data: ekg today shows what appears to be NSR with a very long 1 aVB (very long 1 avb also noted 01/07/19 ekg), RBBB, LAFB, pvc Assessment/Plan 1. HFpEF/CKD 2. Heart block - Stable, worsened with hyperkalemia - Agree with current management as per Retail Department Manager and Surgery - Avoid rate lowering medications
--- NOTE | 2019-03-20 10:17 | PRO ---
PROCEDURE NOTE: DATE OF PROCEDURE: 03/19/19 PROCEDURE: A triple-lumen central venous catheter insertion. DESCRIPTION OF PROCEDURE: This patient is an 88-year-old white male, who is just admitted from the operating room following repair of an incarcerated inguinal hernia. The patient requires a vasopressor infusion and only has peripheral access and therefore, central line was deemed necessary. A 7-English triple-lumen catheter was inserted into the right internal jugular vein under ultrasound guidance, with no apparent complication. A post-insertion chest x- ray has been ordered. [id number]/[facility] [place] #: [id number] [facility] HOSPITALDeisy
--- NOTE | 2019-03-20 10:42 | PN ---
Progress Note - Progress Note Date of Service: 03/20/19 Note: Surgery Progress Note S: Patient remained intubated and sedated overnight. Afebrile. Pressures have been stable on Levophed at 7mcg/kg/min overnight. Vent settings minimal, FIO2 at 25% and PEEP 5. CXR post CVL placement showed RLL infiltrate, which was evident on preop CXR but appears more preominent. Abx started empirically. This AM labs showed Hct dropped from 37 to 27. No evidence of active bleeding. 1 PRBC ordered. Per nursing staff, NGT output approximately 200cc overnight. O: Vital Signs: Temp Pulse Resp BP Pulse Ox 97.3 F 72 16 110/52 93 03/20/19 06:01 03/20/19 06:01 03/20/19 06:00 03/20/19 06:00 03/20/19 06:01 Laboratory Results - last 24 hr 03/18/19 03/20/19 03/20/19 20:35 05:10 05:10 WBC 11.4 H RBC 2.89 L Hgb 8.9 L Hct 27 L MCV 93 MCH 31 MCHC 33 RDW 18 H Plt Count 143 L MPV 8.7 Neut % (Auto) 93.2 Lymph % (Auto) 1.2 [place] % (Auto) 5.6 Eos % (Auto) 0 Baso % (Auto) 0 Absolute Neuts (auto) 10.6 H Absolute Lymphs (auto) 0.1 L Absolute Monos (auto) 0.6 Absolute Eos (auto) 0 Absolute Basos (auto) 0 Absolute Nucleated RBC 0 Nucleated RBC % 0 Sodium 141 Potassium 4.6 Chloride 111 Carbon Dioxide 22 Anion Gap 8 BUN 64 H Creatinine 2.36 H Est GFR ( Amer) 31.6 Est GFR (Non-Af Amer) 26.1 BUN/Creatinine Ratio 27.1 H Glucose 153 H Calcium 8.3 L Blood Type A Positive Antibody Screen Negative Crossmatch See Detail Intake & Output 03/19/19 03/20/19 03/20/19 22:59 06:59 14:59 Intake Total 715 1329 Output Total 135 170 Balance 580 1159 Weight 155 lb 8.451 oz Intake: IV Fluids 526 1038 LR 415 1000 NS 11 38 NS 100ML, Cefazolin 2G 100 IVPB 105 100 Zosyn 105 100 Medicated IV 84 191 Levophed 32 84 Propofol 52 107 Output: Germain 125 170 Residual 10 Germain 14 Fr 10 Lungs: clear bilaterally Abdomen: soft, distended, LLQ incision c/d/i maggi in place. Dressing was saturated and replaced. Germain catheter in place with yellow clear urine in bag Ext: no edema CXR: possible RLL infiltrate, bilateral pleural effusions A/P: 88 yo M with a history of heart block, subdural hematoma after fall, POD 1 from open left inguinal hernia repair for incarcerated hernia causing SBO, complicated by early traumatic germain insertion, possible aspiration and intraoperative hypotension requiring vasopressors, possibly from volume depletion vs autonomic dysfunction. - Neuro: sedated on propofol gtt, appears comfortable - CV: appreciate Dr. Seth consultation for heart block. Weaning off levophed today, currently at 5mcg/kg/min - Resp: clear bilaterally on auscultation, infiltrate in RLL. Minimal vent settings. Weaning off vent per excellent care of Dr. Seth and ICU team - ID: WBC normal, afebrile, on zosyn empirically for aspiration - GI: abdomen remains distended, NGT in place, continue NPO - Renal: UOP marginal, 15-20cc/hr overnight. Introp hypotension may have been partially been from anesthetics and volume depletion from blood loss, as Hct this AM dropped significantly and UOP has been low. Patient does have bilateral pleural effusions however. Volume management per ICU team - Heme: transfuse 1 PRBC, presumably blood loss from traumatic germain insertion that reportedly bled a lot. No evidence of bleeding at surgical site and minimal intraop blood loss - : continue germain, placed in OR under cysto by Dr. Peterson Discussed plan of care at length with family and Dr. Seth. All questions answered.
[2019-03-20 12:58] LABS: Albumin 2.8 g/dL (3.2-5.2); Globulin 2.8 g/dL (2-4); Total Bilirubin 0.4 mg/dL (0.2-1.0); Total Protein 5.6 g/dL (6.4-8.9)
[2019-03-20 14:09] LABS: Hematocrit 28 % (36-46); Hemoglobin 9.1 g/dL (14.0-18.0); Mean Corpuscular HGB Conc 33 g/dL (31-36); Mean Corpuscular Hemoglobin 31 pg (27-31); Mean Corpuscular Volume 94 fL (80-94); Mean Platelet Volume 8.8 fL (7.4-10.4); Platelet Count 128 10^3/uL (150-450); Red Blood Count 2.93 10^6 /uL (4.18-5.48); Red Cell Distribution Width 17 % (10.5-15); White Blood Count 9.3 10^3/uL (3.5-10.8)
--- NOTE | 2019-03-20 18:14 | PN ---
Date of Service: 03/20/19 Critical Care Services: Has improved today - off Levophed, and was weaned and extubated. Hb dropped 4 g/ dL, but no evidence of active bleeding. Vital Signs: Temp Pulse Resp BP SpO2 FiO2 97.7 F 100 26 117/71 97 30 Physical Exam: Gen:Awake and follows commands, but is confused Lungs:Occasional rhonchi Abdomen:Not distended Extremities: Warm. No cyanosis. Trace edema Fluid Balance (Past 24 Hours): 03/20/19 06:59 Intake Total 2044 Output Total 305 Balance 1739 Weight 155 lb 8.451 oz Intake: IV Fluids 1564 LR 1415 NS 49 NS 100ML, Cefazolin 2G 100 IVPB 205 Zosyn 205 Medicated IV 275 Levophed 116 Propofol 159 Oral Output: Duggan 295 Residual 10 Duggan 14 Fr 10 Labs: Laboratory Results - last 24 hr 03/18/19 03/20/19 03/20/19 20:35 05:10 05:10 WBC 11.4 H RBC 2.89 L Hgb 8.9 L Hct 27 L MCV 93 MCH 31 MCHC 33 RDW 18 H Plt Count 143 L MPV 8.7 Neut % (Auto) 93.2 Lymph % (Auto) 1.2 [place] % (Auto) 5.6 Eos % (Auto) 0 Baso % (Auto) 0 Absolute Neuts (auto) 10.6 H Absolute Lymphs (auto) 0.1 L Absolute Monos (auto) 0.6 Absolute Eos (auto) 0 Absolute Basos (auto) 0 Absolute Nucleated RBC 0 Nucleated RBC % 0 Sodium 141 Potassium 4.6 Chloride 111 Carbon Dioxide 22 Anion Gap 8 BUN 64 H Creatinine 2.36 H Est GFR ( Amer) 31.6 Est GFR (Non-Af Amer) 26.1 BUN/Creatinine Ratio 27.1 H Glucose 153 H Calcium 8.3 L Total Bilirubin 0.40 AST 11 L ALT 7 Alkaline Phosphatase 65 Total Protein 5.6 L Albumin 2.8 L Globulin 2.8 Albumin/Globulin Ratio 1.0 Blood Type A Positive Antibody Screen Negative Crossmatch See Detail 03/20/19 13:56 WBC 9.3 RBC 2.93 L Hgb 9.1 L Hct 28 L MCV 94 MCH 31 MCHC 33 RDW 17 H Plt Count 128 L MPV 8.8 Neut % (Auto) Lymph % (Auto) [place] % (Auto) Eos % (Auto) Baso % (Auto) Absolute Neuts (auto) Absolute Lymphs (auto) Absolute Monos (auto) Absolute Eos (auto) Absolute Basos (auto) Absolute Nucleated RBC Nucleated RBC % Sodium Potassium Chloride Carbon Dioxide Anion Gap BUN Creatinine Est GFR ( Amer) Est GFR (Non-Af Amer) BUN/Creatinine Ratio Glucose Calcium Total Bilirubin AST ALT Alkaline Phosphatase Total Protein Albumin Globulin Albumin/Globulin Ratio Blood Type Antibody Screen Crossmatch Studies: CXR: Marked improvement in infiltrate involving the right lung Nutrition: NPO Impression: 1. Tolerating spontaneous breathing. 2. Source of drop in hemoglobin unclear - may be a residual effect of blood loss yesterday, or may be from an occult GI bleed (doubt the latter). 3. Clearing of infiltrate in right lung is encouraging, and is against the likelihood of a pulmonary infection. 4. Patient is delirious, but this may clear quickly Plan: 1. Follow Hb and Hct 2. Start oral feedings (maybe full liquids at first) 3. Stop antibiotics. 4. Continue acid suppression Rx Critical Care Time: 50 minutes (including time spent evaluating wean and extubation).
[2019-03-20] MEDS ORDERED: Famotidine TAB* 20 MG PO ONE (19:43)
[2019-03-20] MEDS ORDERED: ZOSYN 3.375 GM Q12H per EXTENDED INFUSION IVPB SCH ×2 (21:00)
[2019-03-20] MEDS: Famotidine IV* 10 MG/ML 2 ML (20 mg) IV SLOW PU SCH (21:48)
[2019-03-21] MEDS: NS 0.9% 1000 ML** 1,000 ML IV SCH ×2 (00:54→08:09)
[2019-03-21] MEDS: Albuterol 2.5 MG/3 ML NEB.SOL* (0.083%) INH PRN (03:17)
[2019-03-21 04:19] LABS: Hematocrit 30 % (36-46); Hemoglobin 9.6 g/dL (14.0-18.0); Mean Corpuscular HGB Conc 32 g/dL (31-36); Mean Corpuscular Hemoglobin 30 pg (27-31); Mean Corpuscular Volume 94 fL (80-94); Mean Platelet Volume 9.1 fL (7.4-10.4); Platelet Count 133 10^3/uL (150-450); Red Blood Count 3.16 10^6 /uL (4.18-5.48); Red Cell Distribution Width 18 % (10.5-15); White Blood Count 12.6 10^3/uL (3.5-10.8)
[2019-03-21 04:35] LABS: BUN/Creatinine Ratio 30.2 (8-20); Calcium 8.3 mg/dL (8.6-10.3); EGFR African American 35.2 (>60); EGFR Non-African American 29.1 (>60); Potassium 4.2 mmol/L (3.5-5.0)
[2019-03-21] MEDS: Heparin VIAL(*) 5000 UNITS/ML VIAL (FIVE THOUSAND) SUBCUT SCH ×2 (07:56→21:35)
--- NOTE | 2019-03-21 08:39 | PN ---
Progress Note - Progress Note Date of Service: 03/21/19 Note: Surgery Progress Note I saw patient approximately 7am for left groin hematoma. Early this AM patient was coughing and when nurse evaluated him noted saturation of dressing at his left groin and a bulge concerning for a hematoma. Sandbag was placed. This morning patient looks well and has no complaints. Abd soft. At left groin there is serosanguinous drainage on dressing and a large, firm hematoma across lower groin with some bruising near incision. Hct 30 and vitals stable. At this time will continue to evaluate, may need to have hematoma evacuated if it expands further or becomes more tense.
[2019-03-21 10:13] LABS: INR 1.25 (0.82-1.09)
--- NOTE | 2019-03-21 12:31 | PN ---
Date of Service: 03/21/19 Critical Care Services: Patient had an uneventful evening, and this AM is breathing comfortably. A behzad- incisional hematoma was drained by Dr. Temple this AM. Vital Signs: Temp Pulse Resp BP SpO2 FiO2 98.2 F 80 24 128/50 98 30 Physical Exam: Gen:Alert but confused Lungs:clear Cardiac: Irreg rhythm Abdomen:Not distended Extremities:Warm. No cyanosis or edema. Fluid Balance (Past 24 Hours): 03/21/19 06:59 Intake Total 3093 Output Total 975 Balance 2118 Weight 154 lb Intake: IV Fluids 2753 LR 320 NS 2433 NS 100ML, Cefazolin 2G IVPB 112 Zosyn 112 Medicated IV 228 Levophed 100 Propofol 128 Oral Output: Germain 975 Residual Germain 14 Fr Labs: 03/20/19 03/20/19 03/21/19 05:10 13:56 04:10 WBC 9.3 Hgb 9.1 L Hct 28 L MCV 94 Plt Count 128 L INR (Anticoag Therapy) Sodium 141 143 Potassium 4.6 4.2 Chloride 111 115 H Carbon Dioxide 22 20 L Anion Gap 8 8 BUN 64 65 Creatinine 2.36 2.15 Glucose 153 H 80 Calcium 8.3 L 8.3 L Total Bilirubin 0.40 AST 11 L ALT 7 Alkaline Phosphatase 65 Total Protein 5.6 L Albumin 2.8 03/21/19 03/21/19 04:10 09:12 WBC 12.6 H Hgb 9.6 L Hct 30 L MCV 94 Plt Count 133 L INR (Anticoag Therapy) 1.25 H Studies: ECG rhythm strip shows AFib. Nutrition: Oral diet Impression: Major problems include: 1. Dementia - mild prop, but excerbated by anethesia/hospital stay, etc. 2. Renal insufficiency - Creat 1.9 on admission, now 2.1 - ?acute vs chronic? 3. Atrial fibrillation - ?new (patient has hx AV block) 4. s/p inguinal hernia repair (on left) 5. s/p insertion of germain cath via cystoscopy. Plan: 1. Transfer out of ICU for rehab and eventual discharge planning. 2. Cardiology recommendations regarding AFib 3. Monitor renal function 4. Surgery will follow inguinal wound.
--- NOTE | 2019-03-21 15:25 | PN ---
Progress Note - Progress Note Date of Service: 03/21/19 SOAP: Subjective: Patient seen and examined. Events over the last few days noted. Patient extubated. He is off pressors. Continue the Duggan catheterization with urine output. He has appetite. Earlier today he did not have flatus, but he later on when I saw him again at noon, he did. Objective: Temp Pulse Resp BP Pulse Ox 98.2 F 95 24 135/60 99 03/21/19 12:00 03/21/19 15:01 03/21/19 15:01 03/21/19 15:01 03/21/19 15:01 Intake & Output 03/21/19 03/21/19 03/21/19 06:59 14:59 22:59 Intake Total 1983 0 Output Total 345 45 200 Balance 1638 -45 -200 Weight 154 lb 12.232 oz a and o x3 abdo: soft/ ND/ tender at incision site, positive hematoma. Sterily, 2 maggi removed and some clot evacuated. Sterile dressing and then pressure dressing applied Assessment: POD 2 L inguinal hernia repair, hematoma Plan: advance diet transfe to floor Pt may require trip to OR to evacuate hematoma will watch closely
[2019-03-21] MEDS: Famotidine IV* 10 MG/ML 2 ML (20 mg) IV SLOW PU SCH (21:35)
[2019-03-22] MEDS: Albuterol 2.5 MG/3 ML NEB.SOL* (0.083%) INH PRN (00:43)
[2019-03-22] MEDS: Heparin VIAL(*) 5000 UNITS/ML VIAL (FIVE THOUSAND) SUBCUT SCH (11:24)
--- NOTE | 2019-03-22 11:26 | PN ---
Progress Note - Progress Note Date of Service: 03/22/19 SOAP: Subjective: Pt seen and examined. transferred to floor Pt feeling well. pos BM, flatus we walked today Objective: Temp Pulse Resp BP Pulse Ox 98.5 F 86 18 124/39 93 03/22/19 00:11 03/22/19 00:52 03/22/19 00:52 03/22/19 00:11 03/22/19 00:52 Intake & Output 03/21/19 03/22/19 03/22/19 22:59 06:59 14:59 Intake Total 1770 100 Output Total 900 50 Balance 870 50 a and o x3 shallow breaths abdo: soft/ ND/ tender at L groin with saturated dressing and hematoma edematous Assessment: POD 3 L inguinal hernia repair; resp compromise, hematoma, open wound Plan[] OOB pain control advance diet possible OR tomorrow to evacuate additional hematoma
[2019-03-22] MEDS: Piperacillin/Tazobac ADVAN(*) 3.375 GM in NS 0.9% 100 ML* 100 ML IVPB SCH (12:32)
--- NOTE | 2019-03-22 19:44 | PN ---
Subjective Interval History: Pt's daughter very concerned that he was initially told he wouldn't have the hematoma drained and now he is to have the procedure tomorrow. Pt himself reports mild abdomen pain significantly improved from admission. His appetite is up and he is eating his meal tray during interview. Objective Active Medications: Albuterol (Ventolin 2.5 Mg/3 Ml Neb.Machelle*) 2.5 mg INH [id number] AWAKE PRN PRN Reason: SOB/WHEEZING Last Admin: 03/22/19 00:43 Dose: 2.5 mg Famotidine (Pepcid Iv*) 20 mg IV SLOW PU 2100 MARIUSZ Last Admin: 03/21/19 21:35 Dose: 20 mg Heparin Sodium (Porcine) (Heparin Vial(*)) 5,000 units SUBCUT BID MARIUSZ Piperacillin Sod/Tazobactam (Sod 3.375 gm/ Sodium Chloride) 100 mls @ 25 mls/ hr IVPB Q12H MARIUSZ Last Admin: 03/22/19 12:32 Dose: 25 mls/hr Morphine Sulfate (Morphine 4 Mg/Ml Vial (1 Ml)) 2 mg IV Q4H PRN PRN Reason: PAIN - MILD Oxygen Devices in Use Now: Nasal Cannula Respiratory: - - rhonchi midway up L Extremities: No Edema Result Diagrams: 03/21/19 04:10 03/21/19 04:10 Microbiology and Other Data: Microbiology 03/19/19 18:45 Nasal Screen MRSA (PCR) - Final Nasal Mrsa Not Detected Assess/Plan/Problems-Billing Assessment: 88M with HFpEF on furosemide, HTN, CKD, urethral stricture with home self-cath, fall c/b SDH Dec 2018, Mobitz II HB declined pacer, presented with abdominal pain and was found to have an incarcerated hernia. He is now s/p inguinal hernia repair on L and germain catheter insertion via cystoscopy (03/19) with post- op hematoma, pending evacuation 03/23. Course c/b hypotension, aspiration PNA, and ICU stay, transferred to floors 03/22. - Patient Problems (1) SBO (small bowel obstruction) Comment: due to incarcerated hernia, now s/p open repair with mesh on 03/19, c/b hematoma pending evacuation. - Dr. Temple following - pain control with low-dose morphine - on coverage for GI bugs with zosyn (03/19 - ) (2) Aspiration pneumonitis Comment: Thought to be reason for delayed intubation after surgery, requiring ICU stay. Now s/p extubation. - covered with Zosyn (on this for GI ppx) in case of bacterial infx (3) CHF (congestive heart failure) Comment: - holding diuresis given NPO for surgery, but will restart as soon as able given vascular congestion on xray with O2 requirement - monitor respiratory status closely (4) Heart block Comment: Leonard Seth consulted. Avoid rate-lowering medications. (5) CKD (chronic kidney disease) stage 3, GFR 30-59 ml/min Comment: Stable. Avoid nephrotoxic medications. Renally-dose meds. (6) HTN (hypertension) Comment: At goal off home nifedipine, likely given acute illness. (7) Urethral stricture Comment: Dr. Morales - catheter placed by cystoscopy 03/19. Monitor bladder scans.
[2019-03-22] MEDS ORDERED: Polyethylene Glycol 3350* 17 GM PACKET PO PRN (20:11)
[2019-03-22] MEDS ORDERED: Senna TAB PO PRN (20:11)
[2019-03-22] MEDS: Famotidine IV* 10 MG/ML 2 ML (20 mg) IV SLOW PU SCH (21:42)
[2019-03-23] MEDS: Piperacillin/Tazobac ADVAN(*) 3.375 GM in NS 0.9% 100 ML* 100 ML IVPB SCH ×2 (00:21→13:35)
[2019-03-23] MEDS: Morphine 4 MG/ML VIAL (1 ml) 4 MG/ML VIAL IV PRN ×2 (00:22→22:08)
[2019-03-23 07:01] LABS: Hematocrit 22 % (36-46); Hemoglobin 7.2 g/dL (14.0-18.0); Mean Corpuscular HGB Conc 33 g/dL (31-36); Mean Corpuscular Hemoglobin 31 pg (27-31); Mean Corpuscular Volume 94 fL (80-94); Mean Platelet Volume 9.2 fL (7.4-10.4); Platelet Count 137 10^3/uL (150-450); Red Blood Count 2.35 10^6 /uL (4.18-5.48); Red Cell Distribution Width 17 % (10.5-15)
[2019-03-23 07:18] LABS: BUN/Creatinine Ratio 27.7 (8-20); Calcium 8.6 mg/dL (8.6-10.3); EGFR African American 23.7 (>60); EGFR Non-African American 19.6 (>60); Magnesium 1.9 mg/dL (1.9-2.7); Potassium 4.3 mmol/L (3.5-5.0)
[2019-03-23] MEDS ORDERED: Lactated Ringers 1000 ML Bag* 1,000 ML IV ONE (07:35)
[2019-03-23] MEDS ORDERED: Heparin VIAL(*) 5000 UNITS/ML VIAL (FIVE THOUSAND) SUBCUT SCH (09:00)
[2019-03-23] MEDS ORDERED: Furosemide IV* 10 MG/ML 2 ML VIAL (20 MG) IV SLOW PU ONE (09:12)
--- NOTE | 2019-03-23 13:14 | PN ---
Subjective Date of Service: 03/23/19 Interval History: Overnight, pt had soft BP, and morning labs significant for increasing BUN and Cr, with continued Hgb drop. Given that patient has been off his home furosemide, and is net positive several liters of fluid over the last few days, I think this is from volume overload with poor forward flow. This is supported by worsening edema on his CXR. I have stopped the IVF ordered by surgery and ordered STAT furosemide 20mg IV. Since then, patient has had good UOP and has noted that he feels better, less like he has "heavy breathing". His BPs have also significantly increased. I've ordered for a repeat BMP. Dr. Aakash Seth is aware that patient may return to ICU after procedure, however this may not be necessary. Will continue to monitor closely. Daughters remain distraught. Accused this copywriter of not seeing patient until "9pm" last night - noted that I saw the patient in the morning and again between 7-8pm. Daughters also noted that patient was not walked yesterday, but then agreed that he was walked twice by nursing and once by Dr. Temple yesterday. Daughters distraught that RT did not see patient right away after his urologist ordered a breathing treatment? All questions answered today. Daughters distraught that I cannot predict if he will need to go to the ICU after surgery. Objective Active Medications: Albuterol (Ventolin 2.5 Mg/3 Ml Neb.Machelle*) 2.5 mg INH [id number] AWAKE PRN PRN Reason: SOB/WHEEZING Last Admin: 03/22/19 00:43 Dose: 2.5 mg Famotidine (Pepcid Iv*) 20 mg IV SLOW PU 2100 MARIUSZ Last Admin: 03/22/19 21:42 Dose: 20 mg Piperacillin Sod/Tazobactam (Sod 3.375 gm/ Sodium Chloride) 100 mls @ 25 mls/ hr IVPB Q12H MARIUSZ Last Admin: 03/23/19 00:21 Dose: 25 mls/hr Morphine Sulfate (Morphine 4 Mg/Ml Vial (1 Ml)) 2 mg IV Q4H PRN PRN Reason: PAIN - MILD Last Admin: 03/23/19 00:22 Dose: 2 mg Polyethylene Glycol/Electrolytes (Miralax*) 17 gm PO DAILY PRN PRN Reason: CONSTIPATION Senna (Senokot Tab*) 1 tab PO BEDTIME PRN PRN Reason: if no BM during day Tamsulosin HCl (Flomax Cap*) 0.4 mg PO BEDTIME MARIUSZ Vital Signs - 8 hr 03/23/19 03/23/19 03/23/19 08:00 08:35 08:38 Temperature Pulse Rate 91 Respiratory 16 20 16 Rate Blood Pressure (mmHg) O2 Sat by Pulse 95 Oximetry 03/23/19 03/23/19 03/23/19 09:53 10:16 10:57 Temperature 98.0 F 97.5 F Pulse Rate 85 62 71 Respiratory 22 Rate Blood Pressure 126/74 141/59 (mmHg) O2 Sat by Pulse 92 98 97 Oximetry Oxygen Devices in Use Now: Simple Face Mask - 5L with SaO2 98% Appearance: chronically ill appearing but pleasant and in no acute distress, without increased WOB Ears/Nose/Mouth/Throat: Mucous Membranes Moist Respiratory: - - decreased breathsounds at bases with bibasilar crackles, rhonchi on right Extremities: - - 1+ edema of ankles Result Diagrams: 03/23/19 06:20 03/23/19 06:20 Microbiology and Other Data: Microbiology 03/19/19 18:45 Nasal Screen MRSA (PCR) - Final Nasal Mrsa Not Detected Assess/Plan/Problems-Billing Assessment: 88M with HFpEF on furosemide, HTN, CKD, urethral stricture with home self-cath, fall c/b SDH Dec 2018, Mobitz II HB declined pacer, presented with abdominal pain and was found to have an incarcerated hernia. He is now s/p inguinal hernia repair on L and germain catheter insertion via cystoscopy (03/19) with post- op hematoma, pending evacuation 03/23. Course c/b hypotension, aspiration PNA, and ICU stay, transferred to floors 03/22. - Patient Problems (1) CHF (congestive heart failure) Comment: Volume overloaded by exam/CXR, now s/p furosemide 20mg IV x 1 on 03/23 with good UOP and improvement in symptoms/BP. - likely start standing diuretics after surgery - monitor volume status, respiratory status, and BMP/Mg closely (2) SBO (small bowel obstruction) Comment: due to incarcerated hernia, now s/p open repair with mesh on 03/19, c/b hematoma pending evacuation. - Dr. Temple following - pain control with low-dose morphine - bowel reg prn - on coverage for GI bugs with zosyn (03/19 - ) (3) Aspiration pneumonitis Comment: Thought to be reason for delayed intubation after surgery, requiring ICU stay. Now s/p extubation. - covered with Zosyn (on this for GI ppx) in case of bacterial infx (4) Heart block Comment: Leonard Seth consulted. Avoid rate-lowering medications. (5) CKD (chronic kidney disease) stage 3, GFR 30-59 ml/min Comment: Stable. Avoid nephrotoxic medications. Renally-dose meds. (6) HTN (hypertension) Comment: At goal off home nifedipine, likely given acute illness. (7) Urethral stricture Comment: Dr. Morales - catheter placed by cystoscopy 03/19. Monitor bladder scans.
[2019-03-23 13:58] LABS: BUN/Creatinine Ratio 28.3 (8-20); Calcium 8.7 mg/dL (8.6-10.3); EGFR African American 22.2 (>60); EGFR Non-African American 18.3 (>60); Magnesium 2.1 mg/dL (1.9-2.7); Potassium 4.6 mmol/L (3.5-5.0)
[2019-03-23] MEDS ORDERED: fentaNYL* 50 MCG/ML 2 ML VIAL (100 MCG VIAL) ONE (14:35)
[2019-03-23] MEDS ORDERED: Bupivacaine 0.5% W/EPI SDV* 30 ML VIAL ONE (14:58)
[2019-03-23] MEDS ORDERED: Lidocaine 1% INJ* 10 MG/ML 30 ML SDV ONE (14:58)
--- NOTE | 2019-03-23 15:04 | PN ---
Progress Note - Progress Note Date of Service: 03/23/19 SOAP: Subjective: Pt seen and examined. Overnight events noted. Pt 's case d/w hospitalist. Continued SOB, Increasing Cr, COntinued loose BM, decreased UO. NO abdo pain, no appetite Objective: Temp Pulse Resp BP Pulse Ox 97.5 F 71 22 141/59 97 03/23/19 10:57 03/23/19 10:57 03/23/19 10:16 03/23/19 10:57 03/23/19 10:57 Intake & Output 03/22/19 03/23/19 03/23/19 22:59 06:59 14:59 Intake Total 180 0 328 Output Total 125 125 Balance 55 -125 328 lungs shallow breaths, wheezing abdo: soft/ ND/ tender at L groin; continued serous drainage around hematoma with open wound Ext mild edema labs noted Assessment: anemia, arf on CKD, resp embarrassment. hematoma after inguinal incision Plan: transfuse lasix OR for evacuation of Left groin hematoma R/B/A discussed at length with pt and family--- agree to proceed
[2019-03-23] MEDS ORDERED: fentaNYL* 50 MCG/ML 2 ML VIAL (100 MCG VIAL) IV PRN (15:27)
[2019-03-23] MEDS ORDERED: Naloxone* 0.4 MG/ML 1 ML VIAL IV PRN (15:27)
[2019-03-23] MEDS ORDERED: Acetaminophen TAB* 325 MG PO PRN (15:27)
[2019-03-23] MEDS ORDERED: Ondansetron INJ* 2 MG/ML VIAL IV PRN (15:27)
[2019-03-23] MEDS ORDERED: oxyCODONE/Acetamin 5/325 MG* TAB PO PRN (15:27)
[2019-03-23] MEDS ORDERED: Midazolam* 1 MG/ML 2 ML VIAL (2 MG) ONE (15:37)
[2019-03-23] MEDS ORDERED: PYRAZINAMIDE 500 MG PO SCH (18:00)
[2019-03-23 20:45] LABS: Hematocrit 28 % (36-46); Hemoglobin 9.1 g/dL (14.0-18.0); Mean Corpuscular HGB Conc 33 g/dL (31-36); Mean Corpuscular Hemoglobin 31 pg (27-31); Mean Corpuscular Volume 94 fL (80-94); Mean Platelet Volume 8.7 fL (7.4-10.4); Platelet Count 143 10^3/uL (150-450); Red Blood Count 2.94 10^6 /uL (4.18-5.48); Red Cell Distribution Width 17 % (10.5-15); White Blood Count 13.7 10^3/uL (3.5-10.8)
[2019-03-23 21:07] LABS: BUN/Creatinine Ratio 28.4 (8-20); Calcium 8.7 mg/dL (8.6-10.3); EGFR African American 21.6 (>60); EGFR Non-African American 17.9 (>60); Magnesium 2.2 mg/dL (1.9-2.7); Potassium 4.8 mmol/L (3.5-5.0)
[2019-03-23] MEDS: Tamsulosin CAP* 0.4 MG PO SCH (21:18)
[2019-03-23] MEDS: Famotidine IV* 10 MG/ML 2 ML (20 mg) IV SLOW PU SCH (21:29)
[2019-03-23] MEDS ORDERED: Lactated Ringers 1000 ML Bag* 1,000 ML IV SCH (23:00)
--- NOTE | 2019-03-24 00:01 | OP ---
CC: Dr. Cameron Peterson; [facility]; Primary Care Doctor. OPERATIVE REPORT: DATE OF OPERATION: DATE OF : [birth year] SURGEON: Leonard Temple MD PRE-OP DIAGNOSIS: POST-OP DIAGNOSIS: INDICATIONS: Mr. Velazco is an 88-year-old gentleman status post urgent left inguinal hernia repair wi th mesh on Thursday. The patient's postoperative course has been eventful with respiratory compromis e and ICU care. He was noted on postoperative day 2 to have a large hematoma. We did drain a portio n of this at the bedside, but it did continue to drain around the hematoma and through the skin incis ion and I felt it best to evacuate the hematoma in the operating room, going over the risks, benefits , and alternatives with the family. We spoke of the possibility of infection, if we did nothing the hematoma could become infected and worsen, and for this reason, I recommended strongly evacuation of hematoma in the operative unit. Consent was obtained and the patient was marked, brought to the oper ating room, placed on the operating room table in a supine position. Gentle sedation was given. The patient's maggi removed at the left groin and the area was prepped with Betadine. I gently opened up the incision and took a large portion of clotted blood out. This was again physica lly taken out laterally and as well deep. I never did come in counter with the mesh which was good. We were on top of the anterior fascia of the external oblique. We next Pulsavac'd with approximately 1 L of warm saline. We looked around for any active bleeding a nd found none. We then closed up the incision with interrupted 2- 0 Vicryl stitches at Navin's fasc ia, followed by skin maggi and a Prevena vacuum type closed incision suction dressing. The patient tolerated the procedure well and was transferred to the PACU in stable condition. [id number]/[facility] #: [id number]
[2019-03-24] MEDS: Piperacillin/Tazobac ADVAN(*) 3.375 GM in NS 0.9% 100 ML* 100 ML IVPB SCH ×2 (00:48→12:51)
[2019-03-24 04:55] LABS: Hematocrit 27 % (36-46); Hemoglobin 8.6 g/dL (14.0-18.0); Mean Corpuscular HGB Conc 32 g/dL (31-36); Mean Corpuscular Hemoglobin 30 pg (27-31); Mean Corpuscular Volume 95 fL (80-94); Mean Platelet Volume 8.9 fL (7.4-10.4); Platelet Count 147 10^3/uL (150-450); Red Blood Count 2.85 10^6 /uL (4.18-5.48); Red Cell Distribution Width 17 % (10.5-15); White Blood Count 13.8 10^3/uL (3.5-10.8)
[2019-03-24 05:04] LABS: BUN/Creatinine Ratio 29.3 (8-20); Calcium 8.6 mg/dL (8.6-10.3); EGFR African American 20.2 (>60); EGFR Non-African American 16.7 (>60); Magnesium 2.2 mg/dL (1.9-2.7); Potassium 4.7 mmol/L (3.5-5.0)
[2019-03-24 05:34] LABS: ABS Basophils 0 10^3/ul (0-0.2); ABS Eosinophils 0 10^3/ul (0-0.6); ABS Lymphocytes 0.8 10^3/ul (1.0-4.8); ABS Monocytes 1.3 10^3/ul (0-0.8); ABS Neutrophils 11.6 10^3/ul (1.5-7.7); ABS Nucleated RBC 0 10^3/ul; Eosinophil % 0.3 %; Lymphocyte % 5.9 %; Nucleated Red Blood Cells % 0.1
[2019-03-24] MEDS ORDERED: D5NS 0.9% 1000 ML BAG* 1,000 ML IV SCH (07:00)
[2019-03-24] MEDS ORDERED: Albumin Human 25%* 12.5 GM/50 ML BTL IV ONE (08:13)
[2019-03-24] MEDS ORDERED: Furosemide IV* 10 MG/ML 2 ML VIAL (20 MG) IV ONE (15:17)
--- NOTE | 2019-03-24 15:17 | ECHO ---
*[facility]* [place] [address] Fax #: [phone] Transthoracic Echocardiogram Patient: Juan A, Height: 67 in / Jovanni Esquivel 170.2 cm : 1930 Weight: 160.7 lb / Study Date: 03/24/2019 73 kg Age: 88 BP: 136 / 80 Gender: M BMI/BSA: 25.2 kg/m^2 HR: 71 bpm / 1.84 m^2 *Brusher: Myriam Govea *Referring Physician: * Aakash SethReading Physician: * Marie Llamas Indications: Atrial Fibrillation. Congestive Heart Failure. History: CKD, Heart block. Congestive heart failure. Risk factors: Hypertension. Conclusions Summary: 1. Impressions: [Comparison v prior study] since the study of 01/26/2019, left ventricle ejection fraction is probably borderline less now from 50-55% although difficult to estimate now. Tricuspid regurgitation and mitral regurgitation are mildly more now. PHTN still moderate. 2. Left ventricle: The cavity size is normal. Wall thickness is mildly increased. Systolic function is at the lower limits of normal. The estimated ejection fraction is 45-50% although difficult to make a final but probably borderline mildly reduced. Left ventricular diastolic function parameters are indeterminate. 3. Right ventricle: Systolic pressure is moderately increased. 4. Mitral valve: There is mild to moderate regurgitation, directed eccentrically. 5. Tricuspid valve: There is mild-moderate regurgitation. Study data: Transthoracic echocardiogram. Procedure: Transthoracic echocardiography was performed. Image quality was fair. Complete 2D, spectral Doppler, and color flow Doppler. Location: ICU Patient status: Inpatient. Patient room number: 8. Rhythm: Atrial fibrillation. Findings Left ventricle: The cavity size is normal. Wall thickness is mildly increased. Systolic function is at the lower limits of normal. The estimated ejection fraction is 45-50% although difficult to make a final but probably borderline mildly reduced. Left ventricular diastolic function parameters are indeterminate. Right ventricle: The cavity size is normal. Wall thickness is mildly increased. Systolic function is normal. Systolic pressure is moderately increased. Left atrium: The atrium is at the upper limits of normal in size. Right atrium: The atrium is normal in size. Mitral valve: The annulus is mildly calcified. The leaflets are mildly thickened. There is no evidence of stenosis. There is mild to moderate regurgitation, directed eccentrically. The valve area is 1.8 cm^2. The valve area index is 0.96 cm^2/m^2. The valve area by pressure half-time is 3.3 cm^2. The valve area index by pressure half-time is 1.81 cm^2/m^2. The valve area (LVOT continuity) is 1.8 cm^2. The valve area index (LVOT continuity) is 0.96 cm^2/m^2. The mean diastolic gradient is 2.0 mm Hg. The peak diastolic gradient is 6.0 mm Hg. Aortic valve: The valve is trileaflet. The leaflets are mildly thickened. There is no evidence of stenosis. There is no significant regurgitation. The LVOT to aortic valve VTI ratio is 0.31. The valve area by the velocity-time integral method is 1.10 cm^2. The valve area index by the velocity-time integral method is 0.6 cm^2/m^2. The ratio of LVOT to aortic valve peak velocity is 0.36. The valve area by the peak velocity method is 1.20 cm^2. The valve area index by the peak velocity method is 0.65 cm^2/m^2. The ratio of LVOT to aortic valve mean velocity is 0.33. The valve area by the mean velocity method is 1.1 cm^2. The valve area index by the mean velocity method is 0.57 cm^2/m^2. The mean systolic gradient is 9.0 mm Hg. The peak systolic gradient is 15.0 mm Hg. Tricuspid valve: There is no evidence of stenosis. There is mild-moderate regurgitation. Pulmonic valve: The leaflets are normal thickness. There is trivial regurgitation. The peak systolic gradient is 2.0 mm Hg. Aorta: Aortic arch: The aortic arch is appears normal. The aortic root is not dilated. Pericardium: There is no significant pericardial effusion. There is a large right pleural effusion and a large left pleural effusion. Pulmonary arteries: Not well visualized. Systemic veins: Inferior vena cava: The vessel is dilated. The respirophasic diameter changes are blunted (< 50%). Abdomen: Ascites is noted. Measurements Left ventricle Value Ref Aortic valve Value Ref OLENA, LAX 5.2 cm 4.2 - 5.8 Sujit diam, ED 2.0 cm ----- ESD, LAX (H) 4.1 cm 2.5 - 4.0 Peak v, S 1.94 m/sec ----- FS (L) 22 % 25 - 43 VTI, S 38.6 cm ----- PW, ED (H) 1.2 cm 0.6 - 1.0 Mean grad, S 9.0 mm Hg ----- EF (L) 45 % 52 - 72 Peak grad, S 15.0 mm Hg ----- E', lat sujit, TDI 11.6 cm/sec >=10.0 BENNY, VTI 1.10 cm^2 ----- E/e', lat sujit, 8 BENNY, Vmax 1.20 cm^2 --- -- TDI E', med sujit, TDI (L) 6.4 cm/sec >=7.0 Mitral valve Value Ref E/e', med sujit, 15 Peak E 0.96 m/sec --- -- TDI Peak A 0.02 m/sec ----- E', avg, TDI 9.0 cm/sec Decel time 140 ms --- -- E/e', avg, TDI 11 <=14 PHT 88 ms ----- Mean grad, D 2.0 mm Hg ----- LVOT Value Ref Peak grad, D 6.0 mm Hg ----- Diam, S 2.00 cm Peak E/A ratio 40 ----- Area 3.1 cm^2 MVA 1.8 cm^2 ----- Peak félix, S 0.7 m/sec MVA, PHT 3.3 cm^2 ----- VTI, S 12.0 cm Mean grad, S 1 mm Hg Pulmonic valve Value Ref SV 36 ml Peak v, S 0.72 m/sec ----- Peak grad, S 2.0 mm Hg ----- Ventricular septum Value Ref IVS, ED (H) 1.3 cm 0.6 - 1.0 Tricuspid valve Value Ref TR peak v (H) 3.74 m/sec <=2.8 Right ventricle Value Ref Peak RV-RA grad, S 56 mm Hg ----- OLENA, LAX 3.1 cm OLENA minor ax, 3.5 cm 1.9 - 3.5 Aortic root Value Ref A4C mid Root diam 2.9 cm <4.0 Left atrium Value Ref Ascending aorta Value Ref AP dim, ES (H) 4.60 cm 3.00 - AAo AP diam, S 2.7 cm ----- 4.00 ML dim, A4C 4.4 cm Inferior vena cava Value Ref SI dim, A4C 5.0 cm Diam 2.8 cm ----- Vol/bsa, ES, 1-p 30 ml/m^2 12 - 37 A4C Right atrium Value Ref SI dim, ES 4.8 cm 3.4 - 5.3 ML dim, ES, A4C (H) 4.6 cm 2.6 - 4.4 Legend: (L) and (H) neftali values outside specified reference range. Prepared and electronically signed by Marie Llamas 03/24/2019 15:16
--- NOTE | 2019-03-24 18:41 | PN ---
Date of Service: 03/24/19 Critical Care Services: Major problems include: 1. Delirium 2. Positive fluid balance (with pleural effusions) 3. Progressive renal insufficiency 4. s/p inguinal hernia repair, with evacuation of incisional hematoma. 5. Traumatic urethral catheterization Patient is up in chair today and we are attempting to feed. Vital Signs: Temp Pulse Resp BP SpO2 FiO2 98.2 F 69 18 137/57 97 30 Physical Exam: Gen: Alert but confused. Lungs: Fine, end-exp wheezes at both bases. Extremities: Trace edema Fluid Balance (Past 24 Hours): I= O= Net Intake & Output 03/24/19 06:59 Intake Total 1595 Output Total 442 Balance 1153 Weight 161 lb Intake: IV Fluids 1495 Blood A+ 328 LR 1151 NS 16 IVPB 100 Zosyn 100 Oral 0 Output: Duggan 442 Other: # Bowel Movements 0 Estimated Stool Amount Labs: 03/23/19 03/23/19 03/24/19 20:35 20:35 04:41 WBC 13.7 H Hgb 9.1 L Hct 28 L Plt Count 143 L Sodium 145 144 Potassium 4.8 4.7 Chloride 117 H 117 H Carbon Dioxide 18 L 15 L Anion Gap 10 12 H BUN 93 H 102 H Creatinine 3.28 H 3.48 H Est GFR ( Amer) 21.6 20.2 Est GFR (Non-Af Amer) 17.9 16.7 BUN/Creatinine Ratio 28.4 H 29.3 H Glucose 72 64 L POC Glucose (mg/dL) Calcium 8.7 8.6 Magnesium 2.2 2.2 03/24/19 03/24/19 03/24/19 04:41 08:32 15:40 WBC 13.8 H Hgb 8.6 L Hct 27 L Plt Count 147 L B-Natriuretic Peptide > 1300 U Sodium Concentration 46 Studies: Cardiac ECHO: Mild LV systolic dysfunction. Nutrition: Oral diet - intake poor. Impression: Frail elderly patient with baseline dementia who developed delirium after OR visit for cystoscopy (and urethral catheterization) and inguinal hernia repair. Postop BUN and creatinine are steadily climbing despite having a positive fluid balance (and an elevated BNP) . Plan: 1. Diuresis with furosemide 2. Encourage nutritional intake 3. Renal consult - ? source of DAVID. Critical Care Time: 50 minutes
[2019-03-24] MEDS: Famotidine IV* 10 MG/ML 2 ML (20 mg) IV SLOW PU SCH (20:02)
[2019-03-24] MEDS: Tamsulosin CAP* 0.4 MG PO SCH (20:02)
[2019-03-24] MEDS: Lactated Ringers 1000 ML Bag* 1,000 ML IV SCH (21:18)
[2019-03-24] MEDS: Morphine 4 MG/ML VIAL (1 ml) 4 MG/ML VIAL IV PRN (22:58)
[2019-03-25] MEDS: Melatonin 3 MG TAB PO PRN ×2 (02:43→23:33)
[2019-03-25 05:35] LABS: BUN/Creatinine Ratio 28.9 (8-20); Calcium 8.1 mg/dL (8.6-10.3); EGFR African American 20.1 (>60); EGFR Non-African American 16.6 (>60); Potassium 4.7 mmol/L (3.5-5.0)
[2019-03-25] MEDS: Lactated Ringers 1000 ML Bag* 1,000 ML IV SCH (07:16)
[2019-03-25] MEDS ORDERED: Furosemide IV* 10 MG/ML 10 ML VIAL (100 MG) IV ONE (12:14)
--- NOTE | 2019-03-25 13:11 | PN ---
Progress Note - Progress Note Date of Service: 03/25/19 SOAP: Subjective: Pt seen and examined. CCM note reviewed. Spoke to family- pt still concerned with toileting tolerating diet Objective: Temp Pulse Resp BP Pulse Ox 97 F 88 21 114/89 99 03/25/19 12:00 03/25/19 12:00 03/25/19 12:00 03/25/19 11:01 03/25/19 12:00 Intake & Output 03/24/19 03/25/19 03/25/19 22:59 06:59 14:59 Intake Total 1867 740 0 Output Total 299 111 45 Balance 1568 629 -45 Weight 173 lb 11.588 oz awake- oriented to person only abdo: soft/ ND/ NT dressing removed- no swelling no redness; gauze reapplied labs noted Assessment: POD 6 L inguinal hernia repair for incarc hernia, takeback for hematoma, ARF on CKD, Resp complomise- though improving Plan: encourage PO OOB Nephro CCM SACMA to cover me this weekend, but call if needs visit; I will see pt on Thursday
--- NOTE | 2019-03-25 13:15 | PN ---
Date of Service: 03/25/19 Critical Care Services: Awake, appears comfortable. Mild hypoactive delirium. Vital Signs: Temp Pulse Resp BP SpO2 FiO2 36.1 C 88 21 114/89 99 30 03/25/19 12:00 03/25/19 12:00 03/25/19 12:00 03/25/19 11:01 03/25/19 12:00 03/25 12:00 Physical Exam: Gen: Awake, mild hypoactive delirium. HEENT: PERRL Lungs: Rhonchi with decreased basilar entry on right Cardiac: S1S2 regular Abdomen: soft, NT, ND, +BS Extremities: mild edema LE, +2 edema upper extremities Neuro: Awake and appropriate, grossly non-focal. Fluid Balance (Past 24 Hours): I= O= Net Intake & Output 03/23/19 03/24/19 03/25/19 03/26/19 06:59 06:59 06:59 06:59 Intake Total 300 1595 2607 0 Output Total 350 442 525 45 Balance -50 1153 2082 -45 Weight 73.164 kg 78.8 kg Intake: IV Fluids 1495 2446 Blood A+ 328 LR 1151 2388 NS 16 58 IVPB 100 109 Zosyn 100 109 Medicated IV 52 Albumin 52 Oral 300 0 0 Output: Duggan 350 442 525 45 Other: Date of Last Bowel 03/25/19 Movement # Bowel Movements 0 0 1 Estimated Stool Amount Large Large Medium Labs: Laboratory Results - last 24 hr 03/24/19 03/24/19 03/24/19 15:40 15:57 19:25 Sodium Potassium Chloride Carbon Dioxide Anion Gap BUN Creatinine Est GFR ( Amer) Est GFR (Non-Af Amer) BUN/Creatinine Ratio Glucose POC Glucose (mg/dL) 114 H Calcium B-Natriuretic Peptide > 1300 H Prealbumin 7 L 03/24/19 03/25/19 21:49 05:10 Sodium 145 Potassium 4.7 Chloride 117 H Carbon Dioxide 16 L Anion Gap 12 H BUN 101 H Creatinine 3.50 H Est GFR ( Amer) 20.1 Est GFR (Non-Af Amer) 16.6 BUN/Creatinine Ratio 28.9 H Glucose 87 POC Glucose (mg/dL) 112 H Calcium 8.1 L B-Natriuretic Peptide Prealbumin Studies: CXR 03/23 with large right basilar effusion and consolidation. Atelectasis vs pneumonia. Nutrition: Taking PO Impression: Acute hypoxic respiratory failure secondary to pleural effusion Possible RLL pneumonia, likely aspiration as source Acute on chronic renal failure. Inguinal hernia repair. Acute bloodloss anemia, stable after evacuation of hematoma. Plan: Respiratory failure: primary issue from my view. The CXR is impressive, there is edema to exam. The BP is high. He was positive balance another 2500cc yesterday and Cr jamil. Will give lasix 60mg IVP q12hrs in an attempt to reach negative balance. DC IVF. The RLL process may be purely inflammatory from aspiration but may also have a pneumonic component but he has no fever, stable mild leukocytosis around 13 and appears non-toxic. That said he has developed a productive cough and has little margin and little reserve. His nares are negative for MRSA so will treat with Zosyn monotx. Acute renal failure: Cr at 3.5 but given a baseline closer to 2 its not really that much of a decrement. He was positive balance the last 24 hrs and Cr jamil. With that in mind and the above findings will dose him with lasix tonight and see where we go. Aspiration: may or may not represent a recurrent obstacle to his recovery. Time will tell. All the above D/W family in detail at bedside. Critical Care Time: 40 minutes
[2019-03-25] MEDS ORDERED: Piperacillin/Tazobac ADVAN(*) 3.375 GM in NS 0.9% 100 ML* 100 ML IVPB ONE (13:18)
[2019-03-25] MEDS ORDERED: Zosyn per Pharmacy* NOTE FOLLOW UP SCH (14:00)
[2019-03-25] MEDS: ZOSYN 3.375 GM Q12H per EXTENDED INFUSION IVPB SCH ×2 (17:45)
[2019-03-25] MEDS: Furosemide IV* 10 MG/ML 10 ML VIAL (100 MG) IV SCH (17:45)
[2019-03-25] MEDS: Famotidine IV* 10 MG/ML 2 ML (20 mg) IV SLOW PU SCH (20:16)
[2019-03-25] MEDS: Tamsulosin CAP* 0.4 MG PO SCH (20:16)
[2019-03-25] MEDS: Morphine 4 MG/ML VIAL (1 ml) 4 MG/ML VIAL IV PRN (22:40)
[2019-03-26] MEDS ORDERED: Morphine 4 MG/ML VIAL (1 ml) 4 MG/ML VIAL IV ONE (01:50)
[2019-03-26] MEDS: ZOSYN 3.375 GM Q12H per EXTENDED INFUSION IVPB SCH ×4 (04:53→17:57)
[2019-03-26 05:23] LABS: Albumin 2.9 g/dL (3.2-5.2); BUN/Creatinine Ratio 27.7 (8-20); Calcium 8.3 mg/dL (8.6-10.3); Potassium 4.2 mmol/L (3.5-5.0); Total Bilirubin 0.9 mg/dL (0.2-1.0)
[2019-03-26 05:50] LABS: Globulin 2.8 g/dL (2-4); Total Protein 5.7 g/dL (6.4-8.9)
[2019-03-26] MEDS: Morphine 4 MG/ML VIAL (1 ml) 4 MG/ML VIAL IV PRN ×2 (06:13→23:17)
[2019-03-26] MEDS ORDERED: Dextrose 50% Syringe 50 ML* 25 GM/50 ML SYRINGE IV PUSH PRN (06:41)
[2019-03-26] MEDS: Insulin LISPRO* 1 UNITS UNIT SUBCUT SCH ×2 (08:36→12:50)
[2019-03-26] MEDS: Furosemide IV* 10 MG/ML 10 ML VIAL (100 MG) IV SCH (08:40)
--- NOTE | 2019-03-26 11:18 | PN ---
Date of Service: 03/26/19 Critical Care Services: Comfortable with family at bedside Vital Signs: Temp Pulse Resp BP SpO2 FiO2 36.2 C 76 16 108/64 100 30 03/26/19 08:00 03/26/19 09:01 03/26/19 09:01 03/26/19 09:01 03/26/19 09:01 03/25 16:00 Physical Exam: Gen: Awake with mild hypoactive delirium after morphine HEENT: PERRL, pupils 2mm Lungs: Rales bilat Cardiac: S1S2 irreg Abdomen: soft, NT, ND, +BS Extremities: +2 UE edema, +1 LE edema Neuro: rouses, interacts appropriately, mild delirium, moves all 4s Fluid Balance (Past 24 Hours): I= O= Net Intake & Output 03/24/19 03/25/19 03/26/19 03/27/19 06:59 06:59 06:59 06:59 Intake Total 1595 2607 1183 Output Total 442 525 730 82 Balance 1153 2082 453 -82 Weight 73.164 kg 78.8 kg 84.4 kg Intake: IV Fluids 1495 2446 805 Blood A+ 328 LR 1151 2388 755 NS 16 58 50 IVPB 100 109 138 Zosyn 100 109 138 Medicated IV 52 Albumin 52 Oral 0 240 Output: Urine 200 Duggan 442 525 530 82 Other: Date of Last Bowel 03/25/19 Movement # Bowel Movements 0 1 Estimated Stool Amount Large Medium Labs: Laboratory Results - last 24 hr 03/25/19 03/25/19 03/26/19 16:15 22:54 04:50 Sodium 147 H Potassium 4.2 Chloride 119 H Carbon Dioxide 18 L Anion Gap 10 BUN 112 H Creatinine 4.04 H Est GFR ( Amer) 17.0 Est GFR (Non-Af Amer) 14.0 BUN/Creatinine Ratio 27.7 H Glucose 126 H POC Glucose (mg/dL) 142 H 190 H Calcium 8.3 L Total Bilirubin 0.90 AST 39 ALT 22 Alkaline Phosphatase 77 Total Protein 5.7 L Albumin 2.9 L Globulin 2.8 Albumin/Globulin Ratio 1.0 03/26/19 03/26/19 06:18 08:30 Sodium Potassium Chloride Carbon Dioxide Anion Gap BUN Creatinine Est GFR ( Amer) Est GFR (Non-Af Amer) BUN/Creatinine Ratio Glucose POC Glucose (mg/dL) 141 H 131 H Calcium Total Bilirubin AST ALT Alkaline Phosphatase Total Protein Albumin Globulin Albumin/Globulin Ratio Studies: CXR 03/26 with worsening pleural effusions, CHF Nutrition: Taking PO but in limited amounts, trying his favorite ice cream today Impression: Acute hypoxic respiratory failure Acute Renal Failure Delirium Plan: Acute Hypoxic Respiratory Failure: CXR with worsening CHF/effusions in setting of another 2 liters positive balance. ECHO shows good LVEF but mild-mod MR which explains his clinical behavior. Actually breathing better this AM despite a worsening CXR is secondary to his afterload reduction provided serendipitously by morphine given for agitation/pain. Renal function has continued to deteriorate despite positive balance and lasix 60mg IVQ12H has failed to reverse the trend. Will hang lasix gtt at 15mg/hr, add metolazone and prime the lasix with 100mg x 1. The MR is the issue and removing volume from the system and log-term afterload reduction are the only hopes of surmounting the current obstacles. Family has declined mechanical ventilation of any modality consistent with patient's known wishes and with my full support. Family also requests DNR with my full support. Acute Renal Failure: Cardiorenal, see above. Family has declined progression of management to dialysis consistent with patient's known wishes and with my full support. Extended discussion with family reviewing the physiology and pathophysiology and goals of care. All of one voice that non-noxious support should be provided if it may bear fruit but that a change to comfort if conservative measures fail is the clear posture of care. CIARRA completed. Critical Care Time: 60 minutes
[2019-03-26] MEDS ORDERED: Furosemide IV* 10 MG/ML 10 ML VIAL (100 MG) ONE (12:06)
[2019-03-26] MEDS: Furosemide IV* 100 MG in NS 0.9% 100 ML* 90 ML IV SCH ×2 (12:14→18:25)
[2019-03-26] MEDS: Metolazone TAB* 5 MG PO SCH ×3 (12:42→21:16)
[2019-03-26 12:45] LABS: Magnesium 2.2 mg/dL (1.9-2.7)
[2019-03-26] MEDS: Famotidine IV* 10 MG/ML 2 ML (20 mg) IV SLOW PU SCH (21:12)
[2019-03-26] MEDS: Tamsulosin CAP* 0.4 MG PO SCH (21:16)
[2019-03-26 22:39] LABS: BUN/Creatinine Ratio 25.9 (8-20); Calcium 8.3 mg/dL (8.6-10.3); EGFR African American 15.7 (>60); Potassium 4.6 mmol/L (3.5-5.0)
[2019-03-27] MEDS: Furosemide IV* 100 MG in NS 0.9% 100 ML* 90 ML IV SCH ×2 (00:50→06:57)
[2019-03-27] MEDS: Morphine 4 MG/ML VIAL (1 ml) 4 MG/ML VIAL IV PRN ×2 (02:46→06:27)
[2019-03-27] MEDS: ZOSYN 3.375 GM Q12H per EXTENDED INFUSION IVPB SCH ×2 (06:31)
[2019-03-27 06:56] LABS: Calcium 8.3 mg/dL (8.6-10.3); EGFR Non-African American 12.4 (>60); Globulin 3.1 g/dL (2-4); Magnesium 2.2 mg/dL (1.9-2.7); Phosphorus 7.2 mg/dL (2.5-5.0); Potassium 4.9 mmol/L (3.5-5.0); Total Bilirubin 0.8 mg/dL (0.2-1.0); Total Protein 6.1 g/dL (6.4-8.9)
--- NOTE | 2019-03-27 07:09 | PN ---
Hospitalist Progress Note Date of Service: 03/27/19 Met with family at bedside as they had concerns Mr. Velazco was declining, he made several statements over the course of the evening claiming "He was dying" and "Please Lord take me." Also agitated and delerious at times, with declining UOP. 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 We had a thoughtful discussion about prognostics of post ICU d/c in elderly patients with multi-organ failure in similar cases and probed to find out what kind of life Mr. Velazco would want if he were to miraculously overcome his renal , pulm, and cardiac complications. His family shares he would want "to go right back to baseline and get on the golf course." They also share he would not want to be in a senior living ever. I express my real concern that this goal is likely not attainable and this seemed to be helpful for them. I offered information on palliative care, ELECTROMEDICAL SERVICE ENGINEER, medications used for anxiety and pain and they are considering as a family, another sibling is driving in from [place]. They report they want to keep us posted and look forward to discussing case with daytime ICU attending. They have a informed grasp on the severity of his illness which I reported was critical and guarded.
[2019-03-27 07:20] VITALS: BP 125/52
[2019-03-27] MEDS ORDERED: Morphine 10 MG/ML VIAL (1 ml) ONE (08:00)
[2019-03-27] MEDS ORDERED: Lorazepam PYXIS KEY PRN (08:39)
[2019-03-27] MEDS ORDERED: LORazepam INJ* 2 MG/ML 1 ML VIAL IV PUSH PRN (08:39)
--- NOTE | 2019-03-27 08:49 | PN ---
Date of Service: 03/27/19 Critical Care Services: No urine output. Decompensated heart failure. Actively dying. Vital Signs: Temp Pulse Resp BP SpO2 FiO2 36.3 C 94 19 125/52 100 100 03/27/19 04:00 03/27/19 07:01 03/27/19 08:11 03/27/19 07:01 03/27/19 07:01 03/27 08:00 Physical Exam: Gen: HEENT: Lungs: Cardiac: Abdomen: Extremities: Neuro: Fluid Balance (Past 24 Hours): I= O= Net Intake & Output 03/25/19 03/26/19 03/27/19 03/28/19 06:59 06:59 06:59 06:59 Intake Total 2607 1183 711 Output Total 525 730 707 10 Balance 2082 453 4 -10 Weight 78.8 kg 84.4 kg Intake: IV Fluids 2446 805 55 LR 2388 755 NS 58 50 55 IVPB 109 138 511 NS 194 Zosyn 109 138 317 Medicated IV 52 145 Albumin 52 Furosemide 145 Oral 240 0 Output: Urine 200 325 Duggan 525 530 382 10 Other: Date of Last Bowel 03/25/19 Movement # Bowel Movements 1 1 Estimated Stool Amount Large Medium Medium Labs: Laboratory Results - last 24 hr 03/26/19 03/26/19 03/26/19 04:50 12:38 22:17 Sodium 147 H 149 H Potassium 4.2 4.6 Chloride 119 H 120 H Carbon Dioxide 18 L 16 L Anion Gap 10 13 H BUN 112 H 112 H Creatinine 4.04 H 4.33 H Est GFR ( Amer) 17.0 15.7 Est GFR (Non-Af Amer) 14.0 13.0 BUN/Creatinine Ratio 27.7 H 25.9 H Glucose 126 H 94 POC Glucose (mg/dL) 120 H Calcium 8.3 L 8.3 L Phosphorus Magnesium 2.2 Total Bilirubin 0.90 AST 39 ALT 22 Alkaline Phosphatase 77 Total Protein 5.7 L Albumin 2.9 L Globulin 2.8 Albumin/Globulin Ratio 1.0 03/27/19 06:00 Sodium 147 H Potassium 4.9 Chloride 119 H Carbon Dioxide 17 L Anion Gap 11 BUN 117 H Creatinine 4.50 H Est GFR ( Amer) 15.0 Est GFR (Non-Af Amer) 12.4 BUN/Creatinine Ratio 26.0 H Glucose 91 POC Glucose (mg/dL) Calcium 8.3 L Phosphorus 7.2 H Magnesium 2.2 Total Bilirubin 0.80 AST 32 ALT 20 Alkaline Phosphatase 79 Total Protein 6.1 L Albumin 3.0 L Globulin 3.1 Albumin/Globulin Ratio 1.0 Impression: Acute Hypoxic Respiratory Failure Acute Renal Failure Acute on Chronic Decompensated Diastolic Heart Failure Plan: Extended family present at bedside. All of one voice that Comfort Care is absolutely consistent with patient's known wishes. We had discussed yesterday that absence of significant diuresis would lead to comfort care this AM due to progressive respiratory failure in the context of the EOL decisions already made. Further conversation beautifully documented by Dr. Pop. Comfort care orders written. Will withdraw the HFNC when all family has arrived. Occasional paroxysms of agitation, will add ativan.
[2019-03-27] MEDS: Morphine 10 MG/ML VIAL (1 ml) IV PRN ×2 (08:55→09:28)
--- NOTE | 2019-03-27 10:52 | DCNOTE ---
88 crocker/o male admitted with incarcerated hernia which was reduced and underwent inguinal hernia repair with mesh followed by hematoma evacuation. Had history of diastolic heart failure which ultimately became decompensated in the setting of ATN during his hospitalization and ultimately failed aggressive attempts at diuresis. There was a clear edict to not proceed to dialysis given clear knowledge of patients wishes. Family was of one voice to proceed to comfort care as his renal failure only worsened along with his respiratory failure and he peacefully with extended family at the bedside at 0944 hrs on 2018. Post declined.
== END 2019-03-27 09:44 | disposition expired | DRG 350 ==
LOC: ED 18:42 → MED 03-19 01:37 → ICU 03-19 17:41 → SSU 03-21 14:02 → ICU 03-23 19:33
PROVIDERS: ADMIT Internal Medicine; ATTEND Internal Medicine Critical Care Medicine
PROC: 0T7D8ZZ Dilation of Urethra, Via Natural or Artificial Opening Endoscopic (ICD-10-PCS; 2019-03-19)
PROC: 0TH Urinary System, Insertion (ICD-10-PCS; 2019-03-19)
PROC: 05HM33Z Insertion of Infusion Device into Right Internal Jugular Vein, Percutaneous Approach (ICD-10-PCS; 2019-03-19)
PROC: B543ZZA Ultrasonography of Right Jugular Veins, Guidance (ICD-10-PCS; 2019-03-19)
PROC: 5A1935Z Respiratory Ventilation, Less than 24 Consecutive Hours (ICD-10-PCS; 2019-03-19)
PROC: 0BH17EZ Insertion of Endotracheal Airway into Trachea, Via Natural or Artificial Opening (ICD-10-PCS; 2019-03-19)
PROC: 0D9670Z Drainage of Stomach with Drainage Device, Via Natural or Artificial Opening (ICD-10-PCS; 2019-03-19)
PROC: 30233N1 Transfusion of Nonautologous Red Blood Cells into Peripheral Vein, Percutaneous Approach (ICD-10-PCS; 2019-03-19)
PROC: 3E043XZ Introduction of Vasopressor into Central Vein, Percutaneous Approach (ICD-10-PCS; 2019-03-19)
PROC: 0YU60JZ Supplement Left Inguinal Region with Synthetic Substitute, Open Approach (ICD-10-PCS; principal; 2019-03-19 11:00)
PROC: 0BP1XDZ Removal of Intraluminal Device from Trachea, External Approach (ICD-10-PCS; 2019-03-20)
PROC: 0DCW0ZZ Extirpation of Matter from Peritoneum, Open Approach (ICD-10-PCS; 2019-03-24)
DX: K40.30 Unilateral inguinal hernia, with obstruction, without gangrene, not specified as recurrent (principal); J96.01 Acute respiratory failure with hypoxia; I50.33 Acute on chronic diastolic (congestive) heart failure; N17.0 Acute kidney failure with tubular necrosis; J69.0 Pneumonitis due to inhalation of food and vomit; K91.870 Postprocedural hematoma of a digestive system organ or structure following a digestive system procedure; I13.0 Hypertensive heart and chronic kidney disease with heart failure and stage 1 through stage 4 chronic kidney disease, or unspecified chronic kidney disease; I45.2 Bifascicular block; D62 Acute posthemorrhagic anemia; R33.8 Other retention of urine; H91.90 Unspecified hearing loss, unspecified ear; N35.919 Unspecified urethral stricture, male, unspecified site; I34.0 Nonrheumatic mitral (valve) insufficiency; I27.20 Pulmonary hypertension, unspecified; I44.1 Atrioventricular block, second degree; Z96.653 Presence of artificial knee joint, bilateral; Y83.2 Surgical operation with anastomosis, bypass or graft as the cause of abnormal reaction of the patient, or of later complication, without mention of misadventure at the time of the procedure; E87.5 Hyperkalemia; Z87.891 Personal history of nicotine dependence; Y92.239 Unspecified place in hospital as the place of occurrence of the external cause; N18.3 Chronic kidney disease, stage 3 (moderate); N31.9 Neuromuscular dysfunction of bladder, unspecified; Z96.0 Presence of urogenital implants; Z72.89 Other problems related to lifestyle; Z97.4 Presence of external hearing-aid; Z85.46 Personal history of malignant neoplasm of prostate; Z88.1 Allergy status to other antibiotic agents; Z87.442 Personal history of urinary calculi; Z92.3 Personal history of irradiation; Z91.81 History of falling; Z81.1 Family history of alcohol abuse and dependence; Z82.49 Family history of ischemic heart disease and other diseases of the circulatory system; Z83.49 Family history of other endocrine, nutritional and metabolic diseases; Z83.79 Family history of other diseases of the digestive system; I95.9 Hypotension, unspecified; F03.90 Unspecified dementia, unspecified severity, without behavioral disturbance, psychotic disturbance, mood disturbance, and anxiety; I48.91 Unspecified atrial fibrillation
CPT/HCPCS: 36415; 71045; 74176; 74177; 80048; 80053; 83605; 83690; 83735; 83880; 84100; 84134; 84300; 85025; 85027; 85610; 86140; 86850; 86900; 86901; 86922; 87641; 88304; 93005; 93306; 94002; 94003; 94640; 99285; A9270-GY; C1751; C1781; J0456; J0690; J0696; J1100; J1644; J1940; J2060; J2250; J2270; J2405; J2543; J2704; J2765; J3010; J3490; P9040; P9047; Q9967